=== PATIENT | male | born 1950 | race Hispanic/Latino ===

== ENCOUNTER 2017-09-01 16:07 | Emergency (ER) | payer MEDICARE, OTHER ==
--- OUTSIDE RECORDS SUMMARY | 2017-09-01 16:10 | XMS REPORT | Clinical Summary ---
:1950 Author Organization [facility] Address [address] [place] [address] Care Team Providers Name Role Phone Asked, No Pcp Primary Care Provider Unavailable Allergies No Known Allergies Current Medications Prescription Sig. Disp. Refills Start Date End Date Status gabapentin Take 600 mg by Active (NEURONTIN) 300 mg mouth nightly. capsule MELOXICAM ORAL Take by mouth Active daily. dronabinol Take 1 capsule 60 capsule 0 10/03/2016 10/07/2016 Discontinued (MARINOL) 5 MG (5 mg total) capsule by mouth 2 (two) times a day before meals for 30 days. dronabinol Take 2 60 capsule 3 10/07/2016 11/06/2016 (MARINOL) 5 MG capsules (10 capsule mg total) by mouth 2 (two) times a day before meals for 30 days. dronabinol Take 1 capsule 60 capsule 2 03/09/2017 04/08/2017 (MARINOL) 5 MG (5 mg total) capsule by mouth 2 (two) times a day before meals for 30 days. Active Problems Problem Noted Date Myalgia 10/03/2016 Post-traumatic osteoarthritis of both shoulders 10/03/2016 TBI (traumatic brain injury) 10/03/2016 Encounters Date Type Specialty Care Team Description 03/09/2017 Refill Physical Medicine and Mica Gerber MA 10/07/2016 Telephone Physical Medicine and Mica Gerber MA 10/07/2016 Refill Physical Medicine and Mica Gerber MA 10/03/2016 Office Visit Physical Medicine and Yu Paredes Myalgia ( Primary Dx); Rehabilitation MD Post-traumatic osteoarthritis of both shoulders; TBI (traumatic brain injury), with loss of consciousness of unspecified duration, sequela after 08/31/2016 Social History Tobacco Use Types Packs/Day Years Used Date Never Smoker Sex Assigned at Date Recorded Not on file Last Filed Vital Signs Vital Sign Reading Time Taken Blood Pressure 153/107 10/03/2016 9:39 AM CDT Pulse 74 10/03/2016 9:39 AM CDT Temperature - - Respiratory Rate - - Oxygen Saturation - - Inhaled Oxygen Concentration - - Weight - - Height - - Body Mass Index - - Plan of Treatment Health Maintenance Due Date Last Done Comments COLONOSCOPY 1998 SHINGRIX VACCINE (#1) 1998 ZOSTER VACCINE 2008 PNEUMOCOCCAL POLYSACCHARIDE VACCINE AGE 65 AND OVER 2013 PNEUMOCOCCAL-13 2013 INFLUENZA VACCINE 11/18/2017 Results Not on fileafter 08/31/2016 Insurance Payer Benefit Plan / Group Subscriber ID Type Phone Address MEDICARE MEDICARE PART A AND B xxxxxxxxxx Medicare [place], [place] [phone] [address]
--- NOTE | 2017-09-01 17:17 | ER ---
Nurse's Notes [facility] Name: Thiago Selby Age: 67 yrs Sex: Male : 1950 Arrival Date: 09/01/2017 Time: 16:12 Bed 28 Private MD: Unknown, Unknown Diagnosis: Skin ulceration Presentation: 09/01 16:25 Presenting complaint: Patient states: " I have a spot on my knee that I think may be a ph spider bite. I just had that knee replaced about 2 months ago and I want to make sure everything is okay." Pt denies N/V/D or fever, small wound noted to R knee w/ no drainage. Transition of care: patient was not received from another setting of care. Onset of symptoms was September 01, 2017. Initial Sepsis Screen: Does the patient meet any 2 criteria? No. Patient's initial sepsis screen is negative. Does the patient have a suspected source of infection? No. Patient's initial sepsis screen is negative. 16:25 Method Of Arrival: Ambulatory 16:25 Acuity: NOE 4 16:47 Care prior to arrival: None. ed1 Triage Assessment: 16:47 Bite description: bite sustained to right knee by an unknown animal, animal ed1 information: vaccination(s) is not applicable. Historical: - Allergies: 16:33 No Known Allergies; ph - Home Meds: 16:33 gabapentin oral oral [Active]; ph - PMHx: 16:33 nerve pain; ph - PSHx: 16:33 knee replacement; ph - Immunization history:: Adult Immunizations unknown. - Social history:: Smoking status: . - Family history:: not pertinent. - Hospitalizations: : No recent hospitalization is reported. Screenin:47 Abuse screen: Denies threats or abuse. Denies injuries from another. Nutritional ed1 screening: No deficits noted. Tuberculosis screening: No symptoms or risk factors identified. Fall Risk None identified. Assessment: 16:47 General: Appears in no apparent distress. Behavior is calm, cooperative. Pain: ed1 Complains of pain in right knee Pain radiates to right leg Pain currently is 8 out of 10 on a pain scale. Quality of pain is described as throbbing, Pain began 1 day ago. Is continuous. Neuro: Level of Consciousness is awake, alert, obeys commands, Oriented to person, place, time, situation. Cardiovascular: Denies chest pain, Heart tones S1 S2 present. Respiratory: Airway is patent Trachea midline Respiratory effort is even, unlabored, Respiratory pattern is regular, symmetrical, Breath sounds are clear bilaterally. GI: No signs and/or symptoms were reported involving the gastrointestinal system. : No signs and/or symptoms were reported regarding the genitourinary system. EENT: No signs and/or symptoms were reported regarding the EENT system. Derm: Skin is intact, Skin is normal, Skin temperature is warm right knee swollen and hot to touch. Musculoskeletal: Circulation, motion, and sensation intact. Range of motion: limited in right knee. 16:47 Reassessment: I agree with assessment completed by KARLA Mtz . aa5 17:23 Reassessment: Patient appears in no apparent distress at this time. No changes from ed1 previously documented assessment. Patient and/or family updated on plan of care and expected duration. Pain level reassessed. Patient is alert, oriented x 3, equal unlabored respirations, skin warm/dry/pink. Vital Signs: 16:28 BP 133 / 71; Pulse 79; Resp 18; Temp 97.9; Pulse Ox 96% on R/A; ph 17:23 BP 138 / 76; Pulse 83; Resp 16; Pulse Ox 100% on R/A; Pain 6/10; ed1 ED Course: 16:12 Patient arrived in ED. mr 16:12 Unknown, Unknown is Private Physician. mr 16:28 Triage completed. ph 16:34 Arm band placed on. ph 16:43 Bibi Rich LVN is Primary Nurse. ed1 16:47 Patient has correct armband on for positive identification. Bed in low position. Call ed1 light in reach. 17:01 Ventura Lara MD is Attending Physician. rn 17:23 No provider procedures requiring assistance completed. Patient did not have IV access ed1 during this emergency room visit. Administered Medications: No medications were administered Outcome: 17:16 Discharge ordered by . rn 17:23 Discharged to home ambulatory. ed1 17:23 Condition: good 17:23 Discharge instructions given to patient, Instructed on discharge instructions, follow up and referral plans. medication usage, Demonstrated understanding of instructions, follow-up care, medications, Prescriptions given X 1. 17:25 Patient left the ED. ed1 Signatures: Lian Laughlin mr Ventura Lara MD MD rn Calderon, Audri, RN RN aa5 Bibi Rich, COMPOSITOR APPRENTICE COMPOSITOR APPRENTICE ed1 Mariajose Thomason, RN RN ph
--- NOTE | 2017-09-01 17:17 | EDPHYS ---
Physician Documentation [facility] Name: Thiago Selby Age: 67 yrs Sex: Male : 1950 Arrival Date: 09/01/2017 Time: 16:12 Bed 28 Private MD: Unknown, Unknown ED Physician Ventura Lara HPI: 09/01 17:13 This 67 yrs old Male presents to ER via Ambulatory with complaints of Insect rn Bite. 17:13 The patient presents with a bite, by an insect. Onset: The symptoms/episode rn began/occurred at an unknown time. Severity of symptoms: At their worst the symptoms were mild, in the emergency department the symptoms are unchanged. The patient has experienced a previous episode. Reports thinks spider bit him on leg, no swelling, + mild erythema, no fever, is cautious because of his knee replacement and previous complications.. Historical: - Allergies: 16:33 No Known Allergies; ph - Home Meds: 16:33 gabapentin oral oral [Active]; ph - PMHx: 16:33 nerve pain; ph - PSHx: 16:33 knee replacement; ph - Immunization history:: Adult Immunizations unknown. - Social history:: Smoking status: . - Family history:: not pertinent. - Hospitalizations: : No recent hospitalization is reported. ROS: 17:13 Constitutional: Negative for fever, chills, and weight loss, MS/Extremity: Negative for rn injury and deformity, Skin: + ulceration to right knee Exam: 17:13 Constitutional: This is a well developed, well nourished patient who is awake, alert, rn and in no acute distress. MS/ Extremity: Pulses equal, no cyanosis. Neurovascular intact. Stiff right knee (baseline), + small subcentimeter ulceration, circular, anterior and lateral to right patella, no fluctuance, + mild erythema. Vital Signs: 16:28 BP 133 / 71; Pulse 79; Resp 18; Temp 97.9; Pulse Ox 96% on R/A; ph 17:23 BP 138 / 76; Pulse 83; Resp 16; Pulse Ox 100% on R/A; Pain 6/10; ed1 MDM: 17:01 Patient medically screened. rn 17:13 Differential diagnosis: ulceration, cellulitis, insect bite. Data reviewed: vital rn signs, nurses notes, and as a result, I will discharge patient. Counseling: I had a detailed discussion with the patient and/or guardian regarding: the historical points, exam findings, and any diagnostic results supporting the discharge/admit diagnosis, the need for outpatient follow up, to return to the emergency department if symptoms worsen or persist or if there are any questions or concerns that arise at home. Special discussion: I discussed with the patient/guardian in detail that at this point there is no indication for admission to the hospital. It is understood, however, that if the symptoms persist or worsen the patient needs to return immediately for re-evaluation. Administered Medications: No medications were administered Disposition: 09/01/17 17:16 Discharged to Home. Impression: Skin ulceration. - Condition is Stable. - Discharge Instructions: Skin Ulcer, Spider Bite. - Prescriptions for Clindamycin HCl 300 mg Oral Capsule - take 1 capsule by ORAL route every 6 hours for 10 days; 40 capsule. - Medication Reconciliation Form, Thank You Letter, Antibiotic Education, Prescription Opioid Use form. - Follow up: Private Physician; When: As needed; Reason: Recheck today's complaints, Re-evaluation by your physician. - Problem is chronic. - Symptoms are unchanged. Signatures: Ventura Lara MD MD rn Bibi Rich, PRODUCTION MATERIAL COORDINATOR PRODUCTION MATERIAL COORDINATOR ed1 Mariajose Thomason RN RN ph Corrections: (The following items were deleted from the chart) 17:25 17:16 09/01/2017 17:16 Discharged to Home. Impression: Skin ulceration. Condition is ed1 Stable. Forms are Medication Reconciliation Form, Thank You Letter, Antibiotic Education, Prescription Opioid Use. Follow up: Private Physician; When: As needed; Reason: Recheck today's complaints, Re-evaluation by your physician. Problem is chronic. Symptoms are unchanged. rn
== END 2017-09-01 17:25 | disposition home or self-care (01) ==
LOC: ER 16:07
DX: L97.919 Non-pressure chronic ulcer of unspecified part of right lower leg with unspecified severity (principal)
CPT/HCPCS: 99282

== ENCOUNTER 2018-07-04 07:26 | Emergency (ER) | payer OTHER ==
--- OUTSIDE RECORDS SUMMARY | 2018-07-04 07:28 | XMS REPORT | Clinical Summary ---
:1950 Author Organization [facility] Address [address] [place] [id number] Care Team Providers Name Role Phone Asked, No Pcp Primary Care Provider Unavailable Allergies No Known Allergies Medications Medication Sig Dispensed Refills Start Date End Date Status gabapentin (NEURONTIN) Take 600 mg by 0 Active 300 mg capsule mouth nightly. MELOXICAM ORAL Take by mouth 0 Active daily. Active Problems Problem Noted Date Myalgia 10/03/2016 Post-traumatic osteoarthritis of both shoulders 10/03/2016 TBI (traumatic brain injury) 10/03/2016 Social History Tobacco Use Types Packs/Day Years Used Date Never Smoker Sex Assigned at Date Recorded Not on file Job Start Date Occupation Industry Not on file Not on file Not on file Travel History Travel Start Travel End No recent travel history available. Last Filed Vital Signs Not on file Plan of Treatment Health Maintenance Due Date Last Done Comments COLON CANCER SCREENING 1998 SHINGLES VACCINES (#1) 1998 65+ PNEUMOCOCCAL VACCINE (1 of 2 - PCV13) 2013 PNEUMOCOCCAL POLYSACCHARIDE VACCINE AGE 65 AND OVER 2013 INFLUENZA VACCINE 11/18/2017 Results Not on fileafter 07/03/2017 Insurance Payer Benefit Plan / Group Subscriber ID Type Phone Address MEDICARE MEDICARE PART A AND B xxxxxxxxxx Medicare [place], [place] Advance Directives Patient has advance care planning documents on file. For more information, please contact:[place] [id number] [place] [address]
[2018-07-04] MEDS ORDERED: MEPERIDINE HCL 25 MG/0.5 ML ONE (08:02)
[2018-07-04 08:11] LABS: Absolute Lymphocytes (CBC) 1.4 K/uL (0.7-4.9); Basophils % 0.6 % (0-1.3); Eosinophils % 2.4 % (0-4.4); Hematocrit 44.8 % (39.6-49.0); Lymphocytes % 16.4 % (15.3-44.8); MPV 8.7 fL (7.6-11.3); Monocytes % 11.4 % (3.3-12.3); RBC Red Blood Cell Count 5.08 M/uL (4.33-5.43)
[2018-07-04 08:29] LABS: Albumin 3.8 g/dL (3.4-5.0); Bilirubin Direct 0.2 mg/dL (0-0.2); Bilirubin Total 0.8 mg/dL (0.2-1.0); Potassium 4.1 mmol/L (3.5-5.1); Protein, Total 7.2 g/dL (6.4-8.2)
--- NOTE | 2018-07-04 08:33 | RAD REPORT ---
EXAM DESCRIPTION: CT - Stone Protocol - 07/04/2018 8:06 am CLINICAL HISTORY: Abdominal pain. Right flank pain COMPARISON: None. TECHNIQUE: Computed axial tomography of the abdomen pelvis was obtained without oral or IV contrast. Lack of IV and oral contrast limits evaluation of solid organs, bowel, and vessels. Coronal reformat irma images were obtained and reviewed. All CT scans are performed using dose optimization technique as appropriate and may include automated exposure control or mA/KV adjustment according to patient size. FINDINGS: A renal calculus is not seen. An ureteral calculus is not noted. A bladder calculus is not present. Parapelvic renal cysts are present bilaterally. A 2.3 centimeter isodense structure is pres ent within the mid right kidney Fatty liver. Cholecystectomy Spleen, pancreas and adrenals appear grossly normal Diverticula stem from the colon. Moderate stranding is present adjacent to the sigmoid colon is sligh tly to the left of midline within the pelvis. This indicates diverticulitis. No abscess. No free air The appendix appears normal. Small inguinal hernias contain fat IMPRESSION: Negative for a genitourinary calculus Moderate diverticulitis 2.3 centimeter isodense structure within the right kidney likely representing a hypertrophied column James. A mass is considered less likely. This should be confirmed with nonemergent renal ultrasound.
[2018-07-04] MEDS ORDERED: metroNIDAZOLE 500 MG TABLET ONE (09:10)
[2018-07-04] MEDS ORDERED: CIPROFLOXACIN HCL 500 MG TAB ONE (09:10)
--- NOTE | 2018-07-04 09:18 | ER ---
Nurse's Notes [facility] Name: Thiago Selby Age: 68 yrs Sex: Male : 1950 Arrival Date: 07/04/2018 Time: 07:29 Bed 8 Private MD: Diagnosis: Diverticulitis of large intestine without perforation or abscess without bleeding;Radiculopathy, lumbar region Presentation: 07/04 07:49 Presenting complaint: Patient states: right flank pain that travels to the lower abdominal quadrants. Transition of care: patient was not received from another setting of care. Onset of symptoms was July 03, 2018. Risk Assessment: Do you want to hurt yourself or someone else? Patient reports no desire to harm self or others. Initial Sepsis Screen: Does the patient meet any 2 criteria? No. Patient's initial sepsis screen is negative. Does the patient have a suspected source of infection? No. Patient's initial sepsis screen is negative. Care prior to arrival: None. 07:49 Method Of Arrival: Ambulatory 07:49 Acuity: NOE 3 hj Triage Assessment: 07:56 General: Appears distressed, uncomfortable, obese, Behavior is calm, cooperative. Pain: hj Complains of pain in Right flank pain Pain radiates to abdomen Pain currently is 10 out of 10 on a pain scale. Quality of pain is described as burning. GI: Patient currently denies nausea, vomiting. Historical: - Allergies: 07:56 No Known Allergies; hj - Home Meds: 07:56 gabapentin Oral [Active]; atorvastatin oral oral [Active]; Metformin Oral [Active]; hj Lisinopril Oral [Active]; Tramadol Oral [Active]; - PMHx: 07:56 Hypertension; Diabetes - NIDDM; hj - PSHx: 07:56 Knee surgery; hj - Immunization history:: Adult Immunizations unknown. - Social history:: Smoking status: Patient/guardian denies using tobacco, Patient uses alcohol, but reports only rare drinking. - Ebola Screening: : Patient negative for fever greater than or equal to 101.5 degrees Fahrenheit, and additional compatible Ebola Virus Disease symptoms Patient denies exposure to infectious person Patient denies travel to an Ebola-affected area in the 21 days before illness onset No symptoms or risks identified at this time. - Family history:: not pertinent. - Hospitalizations: : No recent hospitalization is reported. Screenin:55 Abuse screen: Denies threats or abuse. Denies injuries from another. Nutritional hj screening: No deficits noted. Tuberculosis screening: No symptoms or risk factors identified. Fall Risk None identified. 08:02 Abuse screen: Denies threats or abuse. Denies injuries from another. Nutritional hj screening: No deficits noted. Tuberculosis screening: No symptoms or risk factors identified. Fall Risk None identified. Assessment: 07:49 GI: Bowel sounds hj 07:49 General: Appears in no apparent distress. uncomfortable, Behavior is calm, cooperative, hj appropriate for age. Pain: Complains of pain in abdomen Pain radiates to anterior aspect of right lateral abdomen and posterior aspect of right lateral abdomen Pain currently is 8 out of 10 on a pain scale. Neuro: Level of Consciousness is awake, alert, obeys commands, Oriented to person, place, time, situation, Appropriate for age. Cardiovascular: Capillary refill < 3 seconds Patient's skin is warm and dry. Respiratory: Airway is patent Respiratory effort is even, unlabored, Respiratory pattern is regular, symmetrical. GI: Reports lower abdominal pain. : No signs and/or symptoms were reported regarding the genitourinary system. EENT: No signs and/or symptoms were reported regarding the EENT system. Derm: No signs and/or symptoms reported regarding the dermatologic system. Musculoskeletal: No signs and/or symptoms reported regarding the musculoskeletal system. 08:01 Reassessment: See triage notes. Vital Signs: 07:56 BP 134 / 70; Pulse 69; Resp 17; Temp 98.2; Pulse Ox 96% on R/A; Weight 127.01 kg; hj Height 5 ft. 10 in. (177.80 cm); Pain 10/10; 07:56 Body Mass Index 40.18 (127.01 kg, 177.80 cm) ED Course: 07:29 Patient arrived in ED. as 07:36 Ventura Lara MD is Attending Physician. rn 07:41 Sony Vázquez RN is Primary Nurse. hj 07:49 Arm band placed on right wrist. hj 07:49 Patient has correct armband on for positive identification. Placed in gown. Bed in low hj position. Call light in reach. Side rails up X 1. 07:55 Initial lab(s) drawn, by me, sent to lab. Inserted saline lock: 20 gauge in right hj antecubital area, using aseptic technique. Blood collected. 07:[address] vr 08:02 Triage completed. hj 08:02 Patient has correct armband on for positive identification. Bed in low position. Call hj light in reach. Side rails up X2. Warm blanket given. 08:05 CT completed. Patient tolerated procedure well. Patient moved back from CT. vr 08:06 CT Stone Protocol In Process Unspecified. EDMS 08:36 Urine Microscopic Only Sent. hj 09:35 No provider procedures requiring assistance completed. IV discontinued, intact, hj bleeding controlled, No redness/swelling at site. Pressure dressing applied. Administered Medications: 07:55 Drug: Demerol 25 mg Route: IVP; Site: right antecubital; hj 08:36 Follow up: Response: No adverse reaction; Pain is decreased hj 08:57 Drug: Cipro 500 mg Route: PO; hj 09:15 Follow up: Response: No adverse reaction hj 08:57 Drug: Flagyl 500 mg Route: PO; hj 09:15 Follow up: Response: No adverse reaction hj Outcome: 09:17 Discharge ordered by . rn 09:35 Attestation : i agree with the assessment of SN Ty. hj 09:35 Discharged to home ambulatory. 09:35 Condition: stable 09:35 Discharge instructions given to patient, Instructed on discharge instructions, follow up and referral plans. medication usage, Demonstrated understanding of instructions, follow-up care, medications, Prescriptions given X 3. 09:36 Patient left the ED. Signatures: Dispatcher [employer] Diane Peterson Roman, MD MD rn Davis, Victoria vr Joaquin, Henry, RN RN hj
--- NOTE | 2018-07-04 09:18 | EDPHYS ---
Physician Documentation [facility] Name: Thiago Selby Age: 68 yrs Sex: Male : 1950 Arrival Date: 07/04/2018 Time: 07:29 Bed 8 Private MD: ED Physician Ventura Lara HPI: 07/04 08:14 This 68 yrs old Male presents to ER via Ambulatory with complaints of rn Abdominal Pain, Flank Pain. 08:14 The patient complains of pain in the right low back. The pain radiates to the abdomen. rn Onset: The symptoms/episode began/occurred 4 day(s) ago. Modifying factors: The symptoms are alleviated by nothing. the symptoms are aggravated by movement. Severity of pain: At its worst the pain was moderate in the emergency department the pain is unchanged. The patient has experienced a previous episode. The patient has been recently seen by a physician:. Recently seen by Dr. Joya, reports unable to get his side of story across, has right lower back pain, radiates around to low abdomen and groin, increased urinary frequency and urgency, no fever, no trauma, reports multiple lower ext and back injuries, has had this once before, no kidney stone found. . Historical: - Allergies: 07:56 No Known Allergies; hj - Home Meds: 07:56 gabapentin Oral [Active]; atorvastatin oral oral [Active]; Metformin Oral [Active]; hj Lisinopril Oral [Active]; Tramadol Oral [Active]; - PMHx: 07:56 Hypertension; Diabetes - NIDDM; hj - PSHx: 07:56 Knee surgery; hj - Immunization history:: Adult Immunizations unknown. - Social history:: Smoking status: Patient/guardian denies using tobacco, Patient uses alcohol, but reports only rare drinking. - Ebola Screening: : Patient negative for fever greater than or equal to 101.5 degrees Fahrenheit, and additional compatible Ebola Virus Disease symptoms Patient denies exposure to infectious person Patient denies travel to an Ebola-affected area in the 21 days before illness onset No symptoms or risks identified at this time. - Family history:: not pertinent. - Hospitalizations: : No recent hospitalization is reported. ROS: 08:14 Constitutional: Negative for fever, chills, and weight loss, Cardiovascular: Negative rn for chest pain, palpitations, and edema, Respiratory: Negative for shortness of breath, cough, wheezing, and pleuritic chest pain, Abdomen/GI: + abd pain, negative for nausea/vomiting/diarrhea Back: + right lower back pain : + urgency and frequency MS/Extremity: Negative for injury and deformity, Neuro: Negative for headache, weakness, numbness, tingling, and seizure. Exam: 08:14 Constitutional: This is a well developed, well nourished patient who is awake, alert, telephonic rn to room without difficulty ENT: MMM Respiratory: No increased work of breathing, no retractions or nasal flaring. Abdomen/GI: soft, mild tenderness suprapubic region Back: No spinal tenderness. No costovertebral tenderness. Full range of motion. Skin: Warm, dry with normal turgor. Normal color with no rashes, no lesions, and no evidence of cellulitis. MS/ Extremity: Pulses equal, no cyanosis. Neurovascular intact. Full, normal range of motion. Equal circumference. Neuro: Awake and alert, GCS 15, oriented to person, place, time, and situation. Cranial nerves II-XII grossly intact. Motor strength 5/5 in all extremities. Sensory grossly intact. Cerebellar exam normal. Normal gait. Vital Signs: 07:56 BP 134 / 70; Pulse 69; Resp 17; Temp 98.2; Pulse Ox 96% on R/A; Weight 127.01 kg; hj Height 5 ft. 10 in. (177.80 cm); Pain 10/10; 07:56 Body Mass Index 40.18 (127.01 kg, 177.80 cm) MDM: 07:36 Patient medically screened. rn 09:16 Differential diagnosis: nephrolithiasis, UTI, diverticulitis. Data reviewed: vital rn signs, nurses notes, lab test result(s), radiologic studies, CT scan, and as a result, I will discharge patient. Counseling: I had a detailed discussion with the patient and/or guardian regarding: the historical points, exam findings, and any diagnostic results supporting the discharge/admit diagnosis, lab results, radiology results, the need for outpatient follow up, to return to the emergency department if symptoms worsen or persist or if there are any questions or concerns that arise at home. Special discussion: I discussed with the patient/guardian in detail that at this point there is no indication for admission to the hospital. It is understood, however, that if the symptoms persist or worsen the patient needs to return immediately for re-evaluation. 07/04 07:46 Order name: CBC with Diff; Complete Time: 08:36 rn 07/04 07:46 Order name: Basic Metabolic Panel; Complete Time: 08:36 rn 07/04 07:46 Order name: LFT's; Complete Time: 08:36 rn 07/04 07:46 Order name: Lipase; Complete Time: 08:36 rn 07/04 07:46 Order name: Urine Microscopic Only rn 07/04 08:41 Order name: Urine Dipstick--Ancillary (enter results) eb 07/04 07:46 Order name: IV Start; Complete Time: 08:01 rn 07/04 07:46 Order name: CT Stone Protocol; Complete Time: 08:36 rn 07/04 07:46 Order name: Urine Dipstick-Ancillary (obtain specimen); Complete Time: 08:36 rn Administered Medications: 07:55 Drug: Demerol 25 mg Route: IVP; Site: right antecubital; hj 08:36 Follow up: Response: No adverse reaction; Pain is decreased hj 08:57 Drug: Cipro 500 mg Route: PO; hj 09:15 Follow up: Response: No adverse reaction hj 08:57 Drug: Flagyl 500 mg Route: PO; hj 09:15 Follow up: Response: No adverse reaction Disposition: 07/04/18 09:17 Discharged to Home. Impression: Diverticulitis of large intestine without perforation or abscess without bleeding, Radiculopathy, lumbar region. - Condition is Stable. - Discharge Instructions: Diverticulitis, Lumbosacral Radiculopathy. - Prescriptions for Cipro 500 mg Oral Tablet - take 1 tablet by ORAL route every 12 hours for 10 days; 20 tablet. Flagyl 500 mg Oral Tablet - take 1 tablet by ORAL route every 8 hours for 10 days; 30 tablet. Tylenol- Codeine #3 300-30 mg Oral Tablet - take 1 tablet by ORAL route every 6 hours As needed; 15 tablet. - Medication Reconciliation Form, Thank You Letter, Antibiotic Education, Prescription Opioid Use form. - Follow up: Private Physician; When: As needed; Reason: Recheck today's complaints, Re-evaluation by your physician. - Problem is new. - Symptoms have improved. Signatures: Dispatcher [employer] EDMS LaraVentura villalba MD MD rn Joaquin, Henry, RN RN Corrections: (The following items were deleted from the chart) : 09:17 07/04/2018 09:17 Discharged to Home. Impression: Diverticulitis of large rn intestine without perforation or abscess without bleeding. Condition is Stable. Forms are Medication Reconciliation Form, Thank You Letter, Antibiotic Education, Prescription Opioid Use. Follow up: Private Physician; When: As needed; Reason: Recheck today's complaints, Re-evaluation by your physician. Problem is new. Symptoms have improved. rn 09:36 09:17 07/04/2018 09:17 Discharged to Home. Impression: Diverticulitis of large hj intestine without perforation or abscess without bleeding; Radiculopathy, lumbar region. Condition is Stable. Forms are Medication Reconciliation Form, Thank You Letter, Antibiotic Education, Prescription Opioid Use. Follow up: Private Physician; When: As needed; Reason: Recheck today's complaints, Re-evaluation by your physician. Problem is new. Symptoms have improved. rn
[2018-07-04 09:36] LABS: Urine Bacteria <20 /HPF (NONE SEEN); Urine Culture Reflex Order NOT NEEDED; Urine RBC <5 /HPF (NONE SEEN)
[2018-07-04 09:37] LABS: Urine Mucus SLIGHT /HPF (NONE SEEN)
[2018-07-04 16:20] LABS: Urine Blood NEGATIVE (NEG); Urine Glucose NEGATIVE (NEG); Urine Protein TRACE (NEG); Urine Specific Gravity 1.025 (1.005-1.030); Urine pH 5.5 (5.0-7.0)
== END 2018-07-04 09:36 | disposition home or self-care (01) ==
LOC: ER 07:26
DX: K57.32 Diverticulitis of large intestine without perforation or abscess without bleeding (principal); M54.16 Radiculopathy, lumbar region; I10 Essential (primary) hypertension; E11.9 Type 2 diabetes mellitus without complications
CPT/HCPCS: 36415; 74176; 76377; 80048; 80076; 81003; 81015; 83690; 85025; 96374; 99284; J2175

== ENCOUNTER 2019-11-02 11:45 | Inpatient (IN) | payer MEDICARE, OTHER ==
--- OUTSIDE RECORDS SUMMARY | 2019-11-02 12:28 | XMS REPORT | Clinical Summary ---
:1950 Author Organization [facility] Address [address] [place] [id number] Care Team Providers Name Role Phone Asked, No Pcp Primary Care Provider Unavailable Allergies No Known Allergies Medications Medication Sig Dispensed Refills Start Date End Date Status gabapentin (NEURONTIN) Take 600 mg by 0 Active 300 mg capsule mouth nightly. MELOXICAM ORAL Take by mouth 0 A ctive daily. Active Problems Problem Noted Date Myalgia 10/03/2016 Post-traumatic osteoarthritis of both shoulders 2016 TBI (traumatic brain injury) 10/03/2016 Social History [...] Maintenance Due Date Last Done Comments COLONOSCOPY SCREENING 1998 SHINGLES VACCINES (#1) 1998 65+ PNEUMOCOCCAL VACCINE (1 of 2 - PCV13) 2013 INFLUENZA VACCINE 11/19/2019 Results Not on fileafter 11/01/2018 Insurance Payer Benefit Plan / Subscriber ID Effective Dates Phone Addre ss Type Group MEDICARE MEDICARE PART A xxxxxxxxxx 2013-Present [place], [place] Medicare [place] B (Home) [place] [address] Advance Directives For more information, please contact: [phone] Type Date Recorded 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
--- OUTSIDE RECORDS SUMMARY | 2019-11-02 12:29 | XMS REPORT | Clinical Summary ---
:1950 Author Organization [facility] Address [address] [place] [address] Care Team Providers Name Role Phone Unavailable Primary Care Provider Unavailable Allergies Not on File Medications Not on file Active Problems Not on file Social History Tobacco Use Types Packs/Day Years Used Date Never Assessed Sex Assigned at Date Recorded Not on file Job Start Date Occupation Industry Not on file Not on file Not on file Travel History Travel Start Travel End No recent travel history available. Last Filed Vital Signs Not on file Plan of Treatment Not on file Results Not on fileafter 11/01/2018
--- NOTE | 2019-11-02 12:37 | RAD REPORT ---
EXAM DESCRIPTION: Chris Single View11/02/2019 12:26 pm CLINICAL HISTORY: Cough COMPARISON: 2019 FINDINGS: Moderate to marked right and moderate left alveolar opacities. Heart is mildly enlarged IMPRESSION: Bilateral pulmonary opacities right greater than left may represent pneumonia
[2019-11-02 12:55] LABS: Absolute Lymphocytes (CBC) 0.8 K/uL (0.7-4.9); Basophils % 0.4 % (0-1.3); Hematocrit 40.6 % (39.6-49.0); Lymphocytes % 11.3 % (15.3-44.8); MPV 8.5 fL (7.6-11.3); RBC Red Blood Cell Count 4.71 M/uL (4.33-5.43)
[2019-11-02 12:59] LABS: Protime INR 1.21
[2019-11-02] MEDS ORDERED: Levofloxacin 750mg IV 750 MG/150 ML BAG IV ONE (13:01)
[2019-11-02] MEDS ORDERED: dexAMETHasone 10 MG/ML VIAL ONE (13:01)
[2019-11-02] MEDS ORDERED: HYDROCODONE/CHLORPHEN 5 ML/OSYR ONE (13:07)
[2019-11-02 13:16] LABS: Albumin 2.9 g/dL (3.4-5.0); Bilirubin Direct 0.3 mg/dL (0-0.2); Bilirubin Total 0.8 mg/dL (0.2-1.0); Potassium 3.6 mmol/L (3.5-5.1); Protein, Total 7.4 g/dL (6.4-8.2); Troponin (Emerg Dept Use Only) 0.06 ng/mL (0.0-0.045)
--- NOTE | 2019-11-02 13:30 | ER ---
Nurse's Notes [facility] Name: Thiago Selby Age: 69 yrs Sex: Male : 1950 Arrival Date: 11/02/2019 Time: 11:49 Bed 15 Private MD: Diagnosis: Pneumonia, unspecified organism;Hypoxemia;Coronavirus infection, unspecified;Sepsis, unspecified organism Presentation: 11/01 12:07 Chief complaint: Patient states: Tested positive for Covid-19 Thursday. Reports ca1 abdominal pain, weakness, fatigued and coughing. Pt drowsy in triage. Coronavirus screen: Surgical mask placed on patient. Patient moved to private room, placed in contact and droplet isolation with eye protection until further assessment. Patient reports a cough. Patient reports shortness of breath or difficulty breathing. Patient reports a measured and/or subjective temperature greater than 100.4F. Patient denies travel on a cruise ship or to a country the [facility] currently lists as an affected area. Patient denies contact with known and/or suspected case of COVID-19. Ebola Screen: Patient negative for fever greater than or equal to 101.5 degrees Fahrenheit, and additional compatible Ebola Virus Disease symptoms Patient denies exposure to infectious person. Patient denies travel to an Ebola-affected area in the 21 days before illness onset. No symptoms or risks identified at this time. Initial Sepsis Screen: Does the patient meet any 2 criteria? No. Patient's initial sepsis screen is negative. Does the patient have a suspected source of infection? No. Patient's initial sepsis screen is negative. Risk Assessment: Do you want to hurt yourself or someone else? Patient reports no desire to harm self or others. Onset of symptoms was November 02, 2019. 12:07 Method Of Arrival: Wheelchair ca1 12:07 Acuity: NOE 2 ca1 Historical: - Allergies: 12:11 Flonase; ca1 - Home Meds: 12:11 atorvastatin 20 mg oral tab 1 tab once daily [Active]; lisinopril 5 mg oral tab 1 tab ca1 once daily [Active]; metformin 500 mg oral tab 1 tab [Active]; hydroxyzine HCl 25 mg Oral tab [Active]; gabapentin 300 mg oral cap [Active]; tramadol 50 mg oral tab [Active]; Aspirin Oral [Active]; - PMHx: 12:11 Diabetes - NIDDM; Hypertension; ca1 - PSHx: 12:11 Knee surgery; ca1 - Immunization history:: Adult Immunizations up to date. - Social history:: Smoking status: Patient denies any tobacco usage or history of. - Family history:: not pertinent. - Hospitalizations: : No recent hospitalization is reported. Screenin:45 Abuse screen: Denies threats or abuse. Denies injuries from another. Nutritional ph screening: No deficits noted. Tuberculosis screening: No symptoms or risk factors identified. Fall Risk None identified. Assessment: 12:43 General: Appears in no apparent distress. uncomfortable, ill, well groomed, Behavior is ph calm, cooperative, appropriate for age, drowsy, Reports chills for >3 days. Pain: Complains of pain in chest and abdomen. Neuro: Level of Consciousness is awake, alert, obeys commands, Oriented to person, place, time, situation, Reports dizziness, weakness "all over". Cardiovascular: Capillary refill < 3 seconds in bilateral fingers Patient's skin is warm and dry. Respiratory: Reports shortness of breath cough that is persistent pain with cough Airway is patent Respiratory effort is even, unlabored, Respiratory pattern is tachypnea. GI: Abdomen is round Bowel sounds present X 4 quads. Reports lower abdominal pain, upper abdominal pain, nausea, Patient currently denies diarrhea, vomiting. Derm: Skin is intact, Skin is pink, warm \\T\\ dry. Musculoskeletal: Circulation, motion, and sensation intact. Range of motion: intact in all extremities. 13:38 Reassessment: Patient appears in no apparent distress at this time. While at bedside pt ph noted to be 88-90% on 6L NC, placed on NRB mask and improved to 97%, other VSS. 14:14 Reassessment: Hospitalist at bedside. ph 15:00 Reassessment: Patient appears in no apparent distress at this time. No changes from ph previously documented assessment. Patient and/or family updated on plan of care and expected duration. Pain level reassessed. 16:11 Reassessment: Attempted to call report to 4th floor, charge nurse stated that they did ph not know they were getting a pt, told that receiving nurse will call back. 17:15 Reassessment: Patient appears in no apparent distress at this time. Patient and/or ph family updated on plan of care and expected duration. Pain level reassessed. Report called to 4th floor, preparing pt to be taken to room. Vital Signs: 12:07 BP 141 / 69; Pulse 85; Resp 22 S; Temp 99(TE); Pulse Ox 81% on R/A; Weight 124.74 kg ca1 (R); Height 5 ft. 10 in. (177.80 cm) (R); 12:30 BP 139 / 63; Pulse 85; Resp 26; Pulse Ox 89% on 4 lpm NC; ph 13:00 BP 146 / 63; Pulse 86; Resp 24; Pulse Ox 91% on 6 lpm NC; ph 13:30 BP 150 / 74; Pulse 83; Resp 24; Pulse Ox 97% on 100% Non-rebreather mask; ph 14:00 BP 131 / 73; Pulse 80; Resp 22; Pulse Ox 99% on 100% Non-rebreather mask; ph 14:30 BP 139 / 76; Pulse 77; Resp 22; Pulse Ox 99% on 100% Non-rebreather mask; ph 15:00 BP 143 / 89; Pulse 77; Resp 24; Temp 98.9; Pulse Ox 98% on 100% Non-rebreather mask; ph 15:30 BP 137 / 65; Pulse 72; Resp 24; Pulse Ox 98% on 100% Non-rebreather mask; ph 16:20 BP 112 / 77; Pulse 73; Resp 26; Temp 98.8(TE); Pulse Ox 98% on 100% Non-rebreather mask;ph 12:07 Body Mass Index 39.46 (124.74 kg, 177.80 cm) ca1 ED Course: 11:49 Patient arrived in ED. bp1 12:01 Ventura Lara MD is Attending Physician. rn 12:08 Triage completed. ca1 12:11 Arm band placed on right wrist. ca1 12:12 Mariajose Thomason, RN is Primary Nurse. ph 12:26 CXR XRAY In Process Unspecified. EDMS 12:44 Initial lab(s) drawn, by ED staff, sent to lab. EKG done. Inserted saline lock: 20 ph gauge in right forearm, using aseptic technique. Blood collected. 12:45 Patient has correct armband on for positive identification. Bed in low position. Call ph light in reach. Side rails up X2. classroom monitor on. Pulse ox on. NIBP on. Door closed. Noise minimized. Warm blanket given. 13:29 Prezas, Haroon, DO is Hospitalizing Provider. rn 14:14 No provider procedures requiring assistance completed. Patient admitted, IV remains in ph place. Administered Medications: 13:15 Drug: Decadron - Dexamethasone 10 mg Route: IVP; Site: right forearm; ph 13:30 Follow up: Response: No adverse reaction ph 13:19 Drug: LevaQUIN 750 mg Volume: 150 ml; Route: IVPB; Infused Over: 90 mins; Site: right ph forearm; 14:50 Follow up: Response: No adverse reaction; IV Status: Completed infusion ph 13:19 Drug: Tussionex Pennkinetic ER 5 ml Route: PO; ph 17:19 Follow up: Response: No adverse reaction ph 13:37 Drug: NS 0.9% 500 ml Route: IV; Rate: bolus; Site: right forearm; ph 17:19 Follow up: Response: No adverse reaction; IV Status: Completed infusion; IV Intake: ph 500ml Intake: 17:19 IV: 500ml; Total: 500ml. ph Outcome: 13:30 Decision to Hospitalize by Provider. rn 16:21 Admitted to Med/surg accompanied by tech, via stretcher, room 419, with oxygen, with ph chart. 16:21 Condition: stable 16:21 Instructed on the need for admit. 17:20 Patient left the ED. ph Signatures: Dispatcher [employer] EDMS Ventura Lara MD MD rn Hall, Patricia, RN RN ph Acob, Cheryl, RN RN ca1 Pania[place], Brittany bp1
--- NOTE | 2019-11-02 13:30 | EDPHYS ---
Physician Documentation [facility] Name: Thiago Selby Age: 69 yrs Sex: Male : 1950 Arrival Date: 11/02/2019 Time: 11:49 Bed 15 Private MD: ED Physician Ventura Lara HPI: 11/01 12:12 This 69 yrs old Male presents to ER via Wheelchair with complaints of COVID+, rn cough, diarrhea. 12:12 The patient or guardian reports cough. Onset: The symptoms/episode began/occurred 1 rn week(s) ago. Severity of symptoms: At their worst the symptoms were mild, in the emergency department the symptoms are unchanged. Modifying factors: The symptoms are alleviated by nothing. The patient has not experienced similar symptoms in the past. Reports cough, some sob, abd cramping, diarrhea, for about a week, + COVID-19, reports feeling worse, has had cefdinir and zithromax, not helping. . Historical: - Allergies: 12:11 Flonase; ca1 - Home Meds: 12:11 atorvastatin 20 mg oral tab 1 tab once daily [Active]; lisinopril 5 mg oral tab 1 tab ca1 once daily [Active]; metformin 500 mg oral tab 1 tab [Active]; hydroxyzine HCl 25 mg Oral tab [Active]; gabapentin 300 mg oral cap [Active]; tramadol 50 mg oral tab [Active]; Aspirin Oral [Active]; - PMHx: 12:11 Diabetes - NIDDM; Hypertension; ca1 - PSHx: 12:11 Knee surgery; ca1 - Immunization history:: Adult Immunizations up to date. - Social history:: Smoking status: Patient denies any tobacco usage or history of. - Family history:: not pertinent. - Hospitalizations: : No recent hospitalization is reported. ROS: 12:12 Constitutional: Negative for fever, chills, and weight loss, Eyes: Negative for injury, rn pain, redness, and discharge, Neck: Negative for injury, pain, and swelling, Cardiovascular: Negative for chest pain, palpitations, and edema, Respiratory: Negative for shortness of breath, cough, wheezing, and pleuritic chest pain, Abdomen/GI: + abd cramping and diarrhea Back: Negative for injury and pain, MS/Extremity: Negative for injury and deformity, Skin: Negative for injury, rash, and discoloration, Neuro: Negative for headache, numbness, tingling, and seizure. Exam: 12:12 Constitutional: This is a well developed, well nourished patient who is awake, alert, rn seems mild respiratory distress Head/Face: Normocephalic, atraumatic. ENT: NO stridor Cardiovascular: Regular rate and rhythm, no JVD. No pulse deficits. Respiratory: + diminished breath sounds at bases, + tachypnea, no retractions Abdomen/GI: soft, non-tender, no masses MS/ Extremity: Pulses equal, no cyanosis. Neurovascular intact. Full, normal range of motion. Equal circumference. Neuro: Awake and alert, GCS 15 Vital Signs: 12:07 BP 141 / 69; Pulse 85; Resp 22 S; Temp 99(TE); Pulse Ox 81% on R/A; Weight 124.74 kg ca1 (R); Height 5 ft. 10 in. (177.80 cm) (R); 12:30 BP 139 / 63; Pulse 85; Resp 26; Pulse Ox 89% on 4 lpm NC; ph 13:00 BP 146 / 63; Pulse 86; Resp 24; Pulse Ox 91% on 6 lpm NC; ph 13:30 BP 150 / 74; Pulse 83; Resp 24; Pulse Ox 97% on 100% Non-rebreather mask; ph 14:00 BP 131 / 73; Pulse 80; Resp 22; Pulse Ox 99% on 100% Non-rebreather mask; ph 14:30 BP 139 / 76; Pulse 77; Resp 22; Pulse Ox 99% on 100% Non-rebreather mask; ph 15:00 BP 143 / 89; Pulse 77; Resp 24; Temp 98.9; Pulse Ox 98% on 100% Non-rebreather mask; ph 15:30 BP 137 / 65; Pulse 72; Resp 24; Pulse Ox 98% on 100% Non-rebreather mask; ph 16:20 BP 112 / 77; Pulse 73; Resp 26; Temp 98.8(TE); Pulse Ox 98% on 100% Non-rebreather mask;ph 12:07 Body Mass Index 39.46 (124.74 kg, 177.80 cm) ca1 MDM: 12:01 Patient medically screened. rn 13:19 Differential Diagnosis: Bronchitis Upper Respiratory Infection Viral Syndrome rn Pneumonia. Data reviewed: vital signs, nurses notes, lab test result(s), radiologic studies, plain films, and as a result, I will admit patient. Counseling: I had a detailed discussion with the patient and/or guardian regarding: the historical points, exam findings, and any diagnostic results supporting the discharge/admit diagnosis, lab results, radiology results, the need for further work-up and treatment in the hospital. Response to treatment: the patient's symptoms have mildly improved after treatment, and as a result, I will admit patient. Admission orders: after a detailed discussion of the patient's condition and case, the admit orders are written by me. 13:29 ED course: Pt with COVID pneumonia, sepsis, hypoxemia, will admit to Dr. Rodriguez for rn further care. . 11/01 12:10 Order name: Blood Culture Adult (2) rn 11/01 12:10 Order name: BMP rn 11/01 12:10 Order name: C-Reactive Protein; Complete Time: 13: 11/01 12:10 Order name: CBC with Diff; Complete Time: 13: rn 11/01 12:10 Order name: D-Dimer; Complete Time: 13: rn 11/01 12:10 Order name: Ferritin; Complete Time: 13: rn 11/01 12:10 Order name: Lactate; Complete Time: : rn 11/01 12:10 Order name: LFT's; Complete Time: : rn 11/01 12:10 Order name: Lipase; Complete Time: 13: rn 11/01 12:10 Order name: Procalcitonin rn 11/01 12:10 Order name: PT-INR; Complete Time: 13: rn 11/01 12:10 Order name: Ptt, Activated; Complete Time: 13: rn 11/01 12:10 Order name: Troponin (emerg Dept Use Only); Complete Time: 13:22 rn 11/01 12:10 Order name: Blood Culture EDAR 11/01 12:10 Order name: CXR XRAY; Complete Time: 12:41 rn 11/01 12:10 Order name: EKG; Complete Time: 12:11 rn 11/01 12:10 Order name: Cardiac monitoring; Complete Time: 12:34 rn 11/01 12:10 Order name: Droplet/Contact Precautions; Complete Time: 12:12 rn 11/01 12:10 Order name: EKG - Nurse/Tech; Complete Time: 12:34 rn 11/01 12:10 Order name: IV Start; Complete Time: 12:34 rn 11/01 12:10 Order name: Labs collected and sent; Complete Time: 12:15 rn 11/01 12:10 Order name: Basic Metabolic Panel; Complete Time: 13:22 EDAR 11/01 12:45 Order name: Type And Screen rn 11/01 15:28 Order name: CONS Physician Consult EDAR 11/01 16:22 Order name: ABO/RH no charge EDAR 11/01 16:41 Order name: Lactate Sepsis 2 HR Follow-up EDAR 11/01 12:10 Order name: O2 Per Protocol; Complete Time: 12:15 rn 11/01 12:10 Order name: O2 Sat Monitoring; Complete Time: 12:15 rn 11/01 13:24 Order name: Labs - recollect needed: recollected T\T\S / no year put on tube; Complete eb Time: 13:37 Administered Medications: 13:15 Drug: Decadron - Dexamethasone 10 mg Route: IVP; Site: right forearm; ph 13:30 Follow up: Response: No adverse reaction ph 13:19 Drug: LevaQUIN 750 mg Volume: 150 ml; Route: IVPB; Infused Over: 90 mins; Site: right ph forearm; 14:50 Follow up: Response: No adverse reaction; IV Status: Completed infusion ph 13:19 Drug: Tussionex Pennkinetic ER 5 ml Route: PO; ph 17:19 Follow up: Response: No adverse reaction ph 13:37 Drug: NS 0.9% 500 ml Route: IV; Rate: bolus; Site: right forearm; ph 17:19 Follow up: Response: No adverse reaction; IV Status: Completed infusion; IV Intake: ph 500ml Disposition: 11/02/19 13:30 Hospitalization ordered by Haroon Rodriguez for Inpatient Admission. Preliminary diagnosis are Pneumonia, unspecified organism, Hypoxemia, Coronavirus infection, unspecified, Sepsis, unspecified organism. - Bed requested for Telemetry/MedSurg (Inpatient). - Status is Inpatient Admission. ph - Condition is Fair. - Problem is new. - Symptoms are unchanged. Critical care time excluding procedures: 13:29 Critical care time: Bedside Care: 25 minutes, Consultation: 5 minutes. Total time: 30 rn minutes Signatures: Dispatcher [employer] EDMS Parul Graves RN RN Ventura Kim MD MD rn Hall, Patricia, RN RN ph Botello, Elizabeth eb Acob, Cheryl RN RN ca1 Corrections: (The following items were deleted from the chart) 15:46 13:30 Hospitalization Ordered by Haroon Rodriguez DO for Inpatient Admission. Preliminary diagnosis is Pneumonia, unspecified organism; Hypoxemia; Coronavirus infection, unspecified; Sepsis, unspecified organism. Bed requested for Telemetry/MedSurg (Inpatient). Status is Inpatient Admission. Condition is Fair. Problem is new. Symptoms are unchanged. rn 17:20 15:46 11/02/2019 13:30 Hospitalization Ordered by Haroon Rodriguez DO for Inpatient ph Admission. Preliminary diagnosis is Pneumonia, unspecified organism; Hypoxemia; Coronavirus infection, unspecified; Sepsis, unspecified organism. Bed requested for Telemetry/MedSurg (Inpatient). Status is Inpatient Admission. Condition is Fair. Problem is new. Symptoms are unchanged. elda
[2019-11-02] MEDS ORDERED: NA CHLORIDE 0.9% 500 ML ONE (13:31)
[2019-11-02] MEDS ORDERED: ONDANSETRON 4 MG/2 ML VIAL IV PRN (15:28)
[2019-11-02] MEDS ORDERED: ACETAMINOPHEN 500 MG TAB PO PRN (15:28)
--- NOTE | 2019-11-02 15:47 | P.HP ---
Certification for Inpatient With expected LOS: >2 Midnights Patient will require the following post-hospital care: None Practitioner: I am a practitioner with admitting privileges, knowledge of patient current condition, hospital course, and medical plan of care. Services: Services provided to patient in accordance with Admission requirements found in Title 42 Section 412.3 of the Code of Federal Regulations <Lucio Frazier - Last Filed: 11/02/19 16:02> Patient History Date of Service: 11/02/19 Primary Care Provider: [facility] Reason for admission: Nausea/vomiting/shortness of breath/ + Covid PNA History of Present Illness: 69-year-old male with past medical history of type 2 diabetes mellitus, hyperten marli, hyperlipidemia, diabetic neuropathy who was diagnosed positive for COVID 19 presents to the emergency room complaining of increasing shortness of breath, cough and labored breathing. Patient states that he was told on ThursdayOctober 28 of that his COVID screen was positive. Patient has had increasing difficulty in breathing. Feels short of breath and is having more labored breathing. States he gets winded with minimal effort. In the emergency room patient was found to have room air saturations of 81% and labored breathing. He was started on oxygen support at 2 L nasal cannula which only brought his oxygen saturations up to 88%. O2 was increased to 6 L which did not improve much his oxygen saturations. Patient is currently on a non rebreathing mask at 15 L with oxygen saturations of 95%. Lab work shows an elevated D-dimer of 17 26, lactic acid of 2.6, ferritin of 1514 and a slightly elevated troponin 0 0.06. Patient had also been started on oral antibiotics with Cefdinir and azithromycin which have not helped. Chest x-ray shows bilateral pulmonary opacities with the right greater than the left. On examination patient is calm. Alert and oriented x3. States that he was very concerned because he did not feel like he was breathing well. He is doing much better now on a non rebreathing mask but is still having labored breathing and gets very short of breath with a drop in oxygen saturations while speaking. He is agreeable to convalescent plasma. Patient is also complaining of nausea vomiting and coughing. States his nausea and vomiting have improved some with medicine. Due to is difficulty maintaining adequate oxygen saturations and requiring significant O2 support patient will be admitted and further evaluated. Home medications list reviewed: No - Past Medical/Surgical History Diabetic: Yes -: Type 2 diabetes mellitus -: Essential hypertension -: Hyperlipidemia -: Diabetic neuropathy -: Positive Covid -19 -: Right total knee -: Left hip replacement x3 -: Cholecystectomy Psychosocial/ Personal History: , lives at home - Family History Mother -: Diabetes - Social History Smoking Status: Never smoker Alcohol use: No CD- Drugs: No Caffeine use: No Place of Residence: Home <Lucio Frazier - Last Filed: 11/02/19 16:02> Date of Service: 11/02/19 <Haroon Rodriguez - Last Filed: 11/02/19 16:38> Allergies No Known Allergie Allergy (Uncoded 09/01/17 17:30) Unknown Review of Systems General: Unremarkable Eyes: Unremarkable ENT: Unremarkable Respiratory: Cough, Shortness of Breath, SOB with Excertion Cardiovascular: Unremarkable Gastrointestinal: Unremarkable Genitourinary: Unremarkable Musculoskeletal: Unremarkable Integumentary: Unremarkable Neurological: Unremarkable <Lucio Frazier - Last Filed: 11/02/19 16:02> Physical Examination - Vital Signs Temperature: 99 F Blood Pressure: 141/69 Pulse: 85 Respirations: 22 Pulse Ox (%): 81 (RA) - Physical Exam General: Alert, In no apparent distress, Oriented x3 HEENT: Atraumatic, Normocephalic, PERRLA Neck: Other (Trachea midline) Respiratory: Clear to auscultation bilaterally, Diminished Cardiovascular: No edema, Normal pulses, Regular rate/rhythm, Normal S1 S2 Capillary refill: <2 Seconds Gastrointestinal: Normal bowel sounds, Soft and benign, Non-distended Musculoskeletal: No clubbing, No swelling, No contractures Integumentary: No rashes, No breakdown, No significant lesion Neurological: Normal gait, Normal speech, Normal strength at 5/5 x4 extr, Normal tone - Studies Laboratory Data (last 24 hrs) 11/02/19 12:20: PT 14.2 H, INR 1.21, APTT 29.9 11/02/19 12:20: WBC 7.1, Hgb 14.0, Hct 40.6, Plt Count 293 11/02/19 12:20: Sodium 134 L, Potassium 3.6, BUN 14, Creatinine 1.05, Glucose 184 H, Total Bilirubin 0.8, AST 124 H, ALT 96 H, Alkaline Phosphatase 62, Lipase 194 <Lucio Frazier - Last Filed: 11/02/19 16:02> - Studies Laboratory Data (last 24 hrs) 11/02/19 12:20: PT 14.2 H, INR 1.21, APTT 29.9 11/02/19 12:20: WBC 7.1, Hgb 14.0, Hct 40.6, Plt Count 293 11/02/19 12:20: Sodium 134 L, Potassium 3.6, BUN 14, Creatinine 1.05, Glucose 184 H, Total Bilirubin 0.8, AST 124 H, ALT 96 H, Alkaline Phosphatase 62, Lipase 194 <Haroon Rodriguez - Last Filed: 11/02/19 16:38> Assessment and Plan - Plan Impression: Shortness of breath and labored breathing secondary to positive Covid pneumonia complicated by cough, nausea and vomiting: Metabolic acidosis with an elevated lactic acid of 2.6 on admission: Elevated cardiac enzymes: Type 2 diabetes mellitus: Diabetic neuropathy: Hypertension: Plan: Shortness of breath and labored breathing secondary to positive Covid pneumonia complicated by cough, nausea and vomiting: Patient is positive for Covid 19 pneumonia. He is requiring increased O2 support and is having difficulty with maintaining adequate oxygen levels on room air. Patient is currently on a non- rebreather mask at 15 L nasal cannula maintaining oxygen saturations of approximately 95%. He is still having labored breathing. Will start patient on dexamethasone 6 mg daily, gently diuresed, will start zinc, folic acid and thiamine as well. Will consult pulmonology. Will continue O2 support and adjust accordingly. Will start patient on Levaquin 500 mg daily empirically. Will continue anti emetics and monitor volume status. Will hold off on starting IV hydration due to his difficulty breathing. Metabolic acidosis with an elevated lactic acid of 2.6 on admission: Will recheck in 3 hr. Will monitor lactic acid levels. Elevation and lactic acid is likely reactive to Covid pneumonia. Elevated cardiac enzymes: Patient denies chest pain at this time. Will continue to trend troponins. Will place patient on continuous telemetry. Type 2 diabetes mellitus: Will start sliding scale insulin. Will resume all medications once available. Will continue ADA diet. Diabetic neuropathy: Patient has been taking gabapentin for many years. Will resume home medications once available. Hypertension: Will resume home medications. Will monitor blood pressure. Discharge Plan: Home Plan to discharge in: 72 Hours - Advance Directives Does patient have a Living Will: No Does patient have a Durable POA for Healthcare: No - Code Status/Comfort Care Code Status Assessed: Yes Time Spent Managing Pts Care (In Minutes): 55 <Lucio Frazier - Last Filed: 11/02/19 16:02> - Plan Case discussed with PA. Agree with evaluation, assessment and plan of care. Pa tient with positive bilateral COVID pneumonia. Continue with IV steroids, supplements and oxygen. Will start antibiotic as well. Patient desires convalescent plasma. Will obtain type and screen an order. Will monitor lab closely. <Haroon Rodriguez - Last Filed: 11/02/19 16:38>
[2019-11-02] MEDS ORDERED: Levofloxacin500mg IV 500 MG/100 ML BAG IV SCH (16:00)
[2019-11-02] MEDS: INSULIN -REGULAR HUMAN 50 UNIT/0.5 ML ML SQ SCH ×2 (16:30→21:00)
[2019-11-02 18:46] VITALS: BMI 39.4
[2019-11-02] MEDS: SPIRONOLACTONE 25 MG TABLET PO SCH (21:03)
[2019-11-02] MEDS: ZINC SULFATE 220 MG CAP PO SCH (21:04)
[2019-11-02] MEDS: FOLIC ACID 1 MG in NA CHLORIDE 0.9% 50 ML IV SCH (21:04)
[2019-11-02] MEDS: FUROSEMIDE 20 MG/ 2ML VIAL IV SCH (21:14)
[2019-11-02] MEDS: ENOXAPARIN 40 MG/0.4 ML SQ SCH (21:14)
[2019-11-02] MEDS: GUAIFENESIN/CODEINE 5ML UCUP PO PRN (21:44)
[2019-11-03] MEDS: THIAMINE 200 MG/2 ML INJ IM SCH ×2 (01:14→07:28)
[2019-11-03 04:47] LABS: Absolute Lymphocytes (CBC) 0.6 K/uL (0.7-4.9); Basophils % 0.4 % (0-1.3); Lymphocytes % 9.9 % (15.3-44.8); RBC Red Blood Cell Count 4.52 M/uL (4.33-5.43)
[2019-11-03 05:16] LABS: BUN Blood Urea Nitrogen 14 mg/dL (7-18); Bicarbonate 25 mmol/L (21-32); Glucose Level 220 mg/dL (74-106); HDL Cholesterol 19 mg/dL (40-60); LDL Cholesterol, Calculated 91 (<130); Magnesium 2.5 mg/dL (1.8-2.4); NT PRO-BNP 61 pg/mL (<125); Potassium 4.3 mmol/L (3.5-5.1); Sodium Level 137 mmol/L (136-145); Thyroid Stimulating Hormone 0.232 uIU/mL (0.360-3.740); Troponin I 0.04 ng/mL (0.0-0.045)
--- NOTE | 2019-11-03 07:25 | EKG ---
Test Date: 2019-11-02 Test Time: 12:44:18 Magnetic Healer: PH MEASUREMENT RESULTS: Intervals: Rate: 84 VA: 168 QRSD: 92 QT: 384 QTc: 453 Dent: P: 35 VA: 168 QRS: 42 T: 26 INTERPRETIVE STATEMENTS: Sinus rhythm with occasional premature ventricular complexes Otherwise normal ECG No previous ECG available for comparison Electronically Signed On 11-03-19 07:23:07 CDT by Gilberto Prasad
[2019-11-03] MEDS: ENOXAPARIN 40 MG/0.4 ML SQ SCH (07:27)
[2019-11-03] MEDS: dexAMETHasone 10 MG/ML VIAL IV SCH (07:28)
[2019-11-03] MEDS: FUROSEMIDE 20 MG/ 2ML VIAL IV SCH (07:28)
[2019-11-03] MEDS: ZINC SULFATE 220 MG CAP PO SCH (07:29)
[2019-11-03] MEDS: SPIRONOLACTONE 25 MG TABLET PO SCH (07:29)
[2019-11-03] MEDS: INSULIN -REGULAR HUMAN 50 UNIT/0.5 ML ML SQ SCH ×4 (07:45→21:53)
[2019-11-03] MEDS ORDERED: PNEUMOCOCCAL VACCINE 0.5 ML IMVAC ONE (09:00)
[2019-11-03] MEDS: FOLIC ACID 1 MG in NA CHLORIDE 0.9% 50 ML IV SCH (09:18)
[2019-11-03] MEDS: levoFLOXacin 500 MG TAB PO SCH (09:18)
[2019-11-03 09:36] LABS: Urine Appearance CLEAR; Urine Bilirubin NEGATIVE (NEG); Urine Blood TRACE (NEG); Urine Color YELLOW; Urine Glucose 1+ (NEG); Urine Protein TRACE (NEG); Urine Specific Gravity 1.015 (1.005-1.030); Urine Urobilinogen 0.2 mg/dL (0.2-1.0)
[2019-11-03 09:37] LABS: Urine Microscopic Reflex ORDER UMIC
[2019-11-03 09:54] LABS: Urine Bacteria NONE SEEN /HPF (NONE SEEN); Urine Coarse Granular Casts 0-5 /LPF (NONE SEEN); Urine Culture Reflex Order NOT NEEDED; Urine Mucus MOD /HPF (NONE SEEN); Urine RBC <5 /HPF (NONE SEEN)
[2019-11-03] MEDS ORDERED: Levofloxacin500mg IV 500 MG/100 ML BAG IV SCH (13:00)
[2019-11-03] MEDS: GUAIFENESIN/CODEINE 5ML UCUP PO PRN (13:26)
--- NOTE | 2019-11-03 16:37 | P.PN ---
Subjective Date of Service: 11/03/19 Primary Care Provider: [facility] Chief Complaint: Nausea/vomiting/shortness of breath/ + Covid PNA Subjective: Improving (Slight improvement but still short of breath. On high- flow oxygen.) Physical Examination - Vital Signs Temperature: 97.2 F Blood Pressure: 144/70 Pulse: 69 Respirations: 17 Pulse Ox (%): 93 - Physical Exam General: Alert, In no apparent distress, Oriented x3, Cooperative HEENT: Atraumatic Neck: Supple Respiratory: Clear to auscultation bilaterally, Other (Patient on high-flow oxygen) Cardiovascular: Normal pulses Neurological: Normal speech, Normal strength at 5/5 x4 extr, Normal tone, Normal affect - Studies Medications List Reviewed: Yes Assessment & Plan Discharge Plan: Home Plan to discharge in: 24 Hours Physician Review Additional Text: Impression: Shortness of breast secondary to bilateral positive COVID pneumonia Mild Metabolic acidosis with an elevated lactic acid Elevated cardiac enzymes Type 2 diabetes mellitus Diabetic neuropathy Hypertension Plan: Shortness of breast secondary to bilateral positive COVID pneumonia: Continue with IV Decadron. Patient on high-flow oxygen. Continue to wean off. Address the possibility of convalescent plasma. Patient agreeable. Will order convalescent plasma at this time. Continue supplements. Will start Levaquin p.o.. Wean off oxygen. Possible improvement over the next 24-48 hr. Patient will likely require home oxygen at discharge. I will turn over the service to the hospitalist team tomorrow. I will go plan of care with him. Mild Metabolic acidosis with an elevated lactic acid: This has resolved. Will monitor closely. Elevated cardiac enzymes likely related to above: Slight elevation noted but back to normal. Likely related to COVID infection Type 2 diabetes mellitus: Resume home medication. Will provide sliding scale and Accu-Cheks. Diabetic neuropathy: Continue medication. Hypertension: Continue home medication. Time Spent Managing Pts Care (In Minutes): 55
[2019-11-03] MEDS: METFORMIN HCL 500 MG TAB PO SCH (16:55)
[2019-11-03] MEDS ORDERED: FOLIC ACID 1 MG TABLET PO SCH (18:00)
[2019-11-03] MEDS ORDERED: THIAMINE HCL 100 MG TABLET PO SCH (18:00)
[2019-11-03] MEDS: ATORVASTATIN 20 MG TAB PO SCH (21:53)
[2019-11-03] MEDS: lisinopriL 5 MG TAB PO SCH (21:53)
[2019-11-03] MEDS: GABAPENTIN 300 MG CAP PO SCH (21:53)
[2019-11-03] MEDS ORDERED: NA CHLORIDE 0.9% 250 ML ONE (23:25)
[2019-11-04] MEDS: GUAIFENESIN/CODEINE 5ML UCUP PO PRN ×2 (02:23→14:13)
[2019-11-04 06:28] LABS: Absolute Lymphocytes (CBC) 0.7 K/uL (0.7-4.9); Basophils % 0.2 % (0-1.3); Hematocrit 37.8 % (39.6-49.0); Lymphocytes % 6.3 % (15.3-44.8); MPV 8.4 fL (7.6-11.3); RBC Red Blood Cell Count 4.34 M/uL (4.33-5.43)
[2019-11-04 06:47] LABS: Potassium 3.8 mmol/L (3.5-5.1)
[2019-11-04] MEDS: INSULIN -REGULAR HUMAN 50 UNIT/0.5 ML ML SQ SCH ×4 (07:30→20:16)
[2019-11-04] MEDS: FOLIC ACID 1 MG TABLET PO SCH (08:31)
[2019-11-04] MEDS: levoFLOXacin 500 MG TAB PO SCH (08:31)
[2019-11-04] MEDS: THIAMINE HCL 100 MG TABLET PO SCH (08:31)
[2019-11-04] MEDS: ZINC SULFATE 220 MG CAP PO SCH (08:31)
[2019-11-04] MEDS: ENOXAPARIN 40 MG/0.4 ML SQ SCH (08:32)
[2019-11-04] MEDS: SPIRONOLACTONE 25 MG TABLET PO SCH (08:32)
[2019-11-04] MEDS: FUROSEMIDE 20 MG/ 2ML VIAL IV SCH (08:32)
[2019-11-04] MEDS: dexAMETHasone 10 MG/ML VIAL IV SCH (08:32)
[2019-11-04] MEDS: METFORMIN HCL 500 MG TAB PO SCH ×2 (08:32→17:45)
--- NOTE | 2019-11-04 08:43 | P.CNS ---
Date of Consult: 11/04/19 [facility] Chief Complaint: Pneumonia you do grande virus History of Present Illness: Patient is 69 years of age multiple medical problems including diabetes tested positive for Crohn or virus admitted with worsening respiratory symptoms shortness of breath cough admitted with respiratory failure and pneumonia currently she is on high-flow oxygen requiring high concentrations Allergies No Known Allergies Allergy (Verified 11/03/19 01:51) Home Medications: Atorvastatin Calcium [Lipitor] 20 mg PO BEDTIME 11/03/19 Benzonatate 100 mg PO TID PRN 11/03/19 Etodolac [Lodine] 400 mg PO PRN PRN 11/03/19 Gabapentin 2 cap PO BEDTIME 11/03/19 Guaifenesin/Codeine Phosphate [Guaiatussin AC Liquid] 5 ml PO Q6H PRN 11/03/19 Lisinopril [Zestril] 5 mg PO BEDTIME 11/03/19 hydrOXYzine HCL [Atarax] 25 mg PO PRN PRN 11/03/19 - Past Medical/Surgical History Diabetic: Yes -: Type 2 diabetes mellitus -: Essential hypertension -: Hyperlipidemia -: Diabetic neuropathy -: Positive Covid -19 -: Right total knee -: Left hip replacement x3 -: Cholecystectomy Psychosocial/ Personal History: , lives at home - Family History Mother Medical History: Diabetes - Social History Alcohol use: No CD- Drugs: No Caffeine use: No Place of Residence: Home Review of Systems General: Weakness Respiratory: Shortness of Breath Physical Examination Temp Pulse Resp BP Pulse Ox 98.7 F 62 12 137/81 93 11/04/19 00:00 11/04/19 00:00 11/04/19 00:00 11/04/19 00:00 11/04/19 00:00 - Problems (1) Pneumonia due to human coronavirus Current Visit: Yes Status: Acute Plan: Patient is 69 years of age admitted with pneumonia respiratory failure she is requiring high-flow oxygen continue with diuretics wean down are O2 meds and la bs all reviewed fully anti coagulated with Eliquis high risk for t thromboembolism
[2019-11-04] MEDS: APIXABAN 5 MG TABLET PO SCH ×2 (09:41→20:15)
[2019-11-04] MEDS ORDERED: NA CHLORIDE 0.9% 1,000 ML ONE (09:46)
--- NOTE | 2019-11-04 11:08 | P.PN ---
Subjective Date of Service: 11/04/19 Primary Care Provider: [facility] Chief Complaint: Pneumonia you do grande virus Subjective: No new changes Review of Systems 10-point ROS is otherwise unremarkable Physical Examination - Vital Signs Temperature: 97.6 F Blood Pressure: 131/71 Pulse: 67 Respirations: 20 Pulse Ox (%): 90 - Physical Exam General: Alert, Mild distress HEENT: Atraumatic, Normocephalic Neck: Supple Respiratory: Diminished, Crackles/rales Cardiovascular: Regular rate/rhythm, Normal S1 S2 Capillary refill: <2 Seconds Gastrointestinal: Soft and benign, W/out hepatosplenomegaly Musculoskeletal: No clubbing, No swelling Integumentary: No rashes Neurological: Other (Alert , Awake ) Lymphatics: No axilla or inguinal lymphadenopathy Urinary: Other (No) - Studies 11/02/19 13:35: ABO/Rh A POSITIVE, Solid Phase Ab Screen Negative Laboratory Tests 11/02/19 11/02/19 11/02/19 12:20 12:20 12:20 WBC 7.1 RBC 4.71 Hgb 14.0 Hct 40.6 MCV 86.2 MCH 29.7 MCHC 34.5 RDW 13.6 Plt Count 293 MPV 8.5 Neutrophils % 81.5 H Lymphocytes % 11.3 L Monocytes % 6.4 Eosinophils % 0.4 Basophils % 0.4 Absolute Neutrophils 5.8 Absolute Lymphocytes 0.8 Absolute Monocytes 0.5 Absolute Eosinophils 0.0 Absolute Basophils 0.0 PT 14.2 H INR 1.21 APTT 29.9 D-Dimer 1726 H* Sodium 134 L Potassium 3.6 Chloride 97 L Carbon Dioxide 26 BUN 14 Creatinine 1.05 Estimated GFR 70 L Glucose 184 H Lactic Acid Calcium 8.6 Ferritin 1514.0 H Total Bilirubin 0.8 Direct Bilirubin 0.3 H AST 124 H ALT 96 H Alkaline Phosphatase 62 Rapid Troponin I 0.06 H C-Reactive Protein 128.00 H Serum Total Protein 7.4 Albumin 2.9 L Globulin 4.5 H Albumin/Globulin Ratio 0.6 L Lipase 194 Procalcitonin ABO/Rh Solid Phase Ab Screen 11/02/19 11/02/19 11/02/19 12:20 12:20 12:35 WBC RBC Hgb Hct MCV MCH MCHC RDW Plt Count MPV Neutrophils % Lymphocytes % Monocytes % Eosinophils % Basophils % Absolute Neutrophils Absolute Lymphocytes Absolute Monocytes Absolute Eosinophils Absolute Basophils PT INR APTT D-Dimer Sodium Potassium Chloride Carbon Dioxide BUN Creatinine Estimated GFR Glucose Lactic Acid 2.6 H Calcium Ferritin Total Bilirubin Direct Bilirubin AST ALT Alkaline Phosphatase Rapid Troponin I C-Reactive Protein Serum Total Protein Albumin Globulin Albumin/Globulin Ratio Lipase Procalcitonin 0.18 ABO/Rh A POSITIVE Solid Phase Ab Screen 11/02/19 13:35 WBC RBC Hgb Hct MCV MCH MCHC RDW Plt Count MPV Neutrophils % Lymphocytes % Monocytes % Eosinophils % Basophils % Absolute Neutrophils Absolute Lymphocytes Absolute Monocytes Absolute Eosinophils Absolute Basophils PT INR APTT D-Dimer Sodium Potassium Chloride Carbon Dioxide BUN Creatinine Estimated GFR Glucose Lactic Acid Calcium Ferritin Total Bilirubin Direct Bilirubin AST ALT Alkaline Phosphatase Rapid Troponin I C-Reactive Protein Serum Total Protein Albumin Globulin Albumin/Globulin Ratio Lipase Procalcitonin ABO/Rh A POSITIVE Solid Phase Ab Screen Negative Medications List Reviewed: Yes Assessment & Plan Physician Review Additional Text: Impression: Acute hypoxic respiratory failure secondary to bilateral positive COVID pneumonia Mild Metabolic acidosis with an elevated lactic acid Elevated cardiac enzymes Type 2 diabetes mellitus Diabetic neuropathy Hypertension Plan: Acute hypoxic respiratory failure secondary to bilateral positive COVID pneumonia: Continue with IV Decadron. Will try to Wean off Oxygen S/p convalescent plasma. Continue supplements. Mild Metabolic acidosis with an elevated lactic acid: resolved. Will monitor closely. Elevated cardiac enzymes likely related to above: Slight elevation noted but back to normal. Likely related to COVID infection Type 2 diabetes mellitus: Resume home medication. Will provide sliding scale and Accu-Cheks. Diabetic neuropathy: Continue medication. Hypertension: Continue home medication. Titrate antihypertensives Time Spent Managing Pts Care (In Minutes): 39
--- NOTE | 2019-11-04 11:26 | RAD REPORT ---
EXAM DESCRIPTION: RAD - Chest Single View - 11/04/2019 10:50 am CLINICAL HISTORY: Pneumonia, COVID positive COMPARISON: AP chest November 01 TECHNIQUE: AP portable chest image was obtained 11/04/2019 10:50 am . FINDINGS: Lung volumes are low compared to prior imaging. Airspace opacification is present in the l ower lung field on the left partially obscuring the left hemidiaphragm. Left costophrenic angle blunt ing is present. There is additional patchy opacification in the mid left lung field. Airspace opacifi cation and consolidation seen in the mid and lower right lung field. Allowing for the lower lung volume on today's study, chest shows no improvement from November 01. Heart and vasculature are normal. No pneumothorax. Small left pleural effusion may be present. No ac acosta bony abnormality seen. No acute aortic findings suspected. IMPRESSION: Bilateral pneumonia findings are present not substantially different from November 01.
[2019-11-04] MEDS: GABAPENTIN 300 MG CAP PO SCH (20:15)
[2019-11-04] MEDS: ATORVASTATIN 20 MG TAB PO SCH (20:15)
[2019-11-04] MEDS: lisinopriL 5 MG TAB PO SCH (20:15)
[2019-11-05] MEDS: GUAIFENESIN/CODEINE 5ML UCUP PO PRN (01:43)
[2019-11-05] MEDS: INSULIN -REGULAR HUMAN 50 UNIT/0.5 ML ML SQ SCH ×4 (07:30→21:00)
--- NOTE | 2019-11-05 07:50 | RAD REPORT ---
EXAM DESCRIPTION: Chris Single View11/05/2019 7:12 am CLINICAL HISTORY: Chest pain COMPARISON: November 01 FINDINGS: Overall no significant change in the moderate right and mild to moderate left pulmonary o pacities consistent with pneumonia.
[2019-11-05] MEDS ORDERED: POTASSIUM CL SA 10 MEQ TAB PO ONE (09:00)
[2019-11-05] MEDS: FUROSEMIDE 20 MG/ 2ML VIAL IV SCH (09:00)
[2019-11-05] MEDS: SPIRONOLACTONE 25 MG TABLET PO SCH (09:00)
[2019-11-05] MEDS: FOLIC ACID 1 MG TABLET PO SCH (09:08)
[2019-11-05] MEDS: METFORMIN HCL 500 MG TAB PO SCH ×2 (09:08→16:21)
[2019-11-05] MEDS: THIAMINE HCL 100 MG TABLET PO SCH (09:08)
[2019-11-05] MEDS: APIXABAN 5 MG TABLET PO SCH ×2 (09:08→20:10)
[2019-11-05] MEDS: ZINC SULFATE 220 MG CAP PO SCH (09:08)
[2019-11-05] MEDS: levoFLOXacin 500 MG TAB PO SCH (09:08)
[2019-11-05] MEDS ORDERED: HYDROCODONE/APAP 10/325 TAB PO PRN (09:18)
[2019-11-05 09:23] LABS: Absolute Lymphocytes (CBC) 0.9 K/uL (0.7-4.9); Basophils % 0.4 % (0-1.3); Hematocrit 39.2 % (39.6-49.0); Lymphocytes % 11.5 % (15.3-44.8); MPV 7.8 fL (7.6-11.3); RBC Red Blood Cell Count 4.54 M/uL (4.33-5.43)
[2019-11-05 09:41] LABS: Albumin 2.7 g/dL (3.4-5.0); Bilirubin Total 0.7 mg/dL (0.2-1.0); Potassium 3.6 mmol/L (3.5-5.1); Protein, Total 6.4 g/dL (6.4-8.2)
[2019-11-05] MEDS: dexAMETHasone 10 MG/ML VIAL IV SCH (10:21)
[2019-11-05 10:35] LABS: Blood Morphology Comment NOT SEEN (NOT SEEN); Platelet Estimate ADEQ
[2019-11-05] MEDS ORDERED: Remdesivir 200 MG in NA CHLORIDE 0.9% 250 ML IV ONE (11:00)
[2019-11-05 11:08] LABS: Arterial Blood Carboxyhemoglob 0.7 % (0-1.5); Blood Gas Oxyhemoglobin 92.8 % (94-97); Blood O2 Saturation 94.3 % (92-98.5)
--- NOTE | 2019-11-05 11:08 | P.PN ---
Subjective Date of Service: 11/05/19 Primary Care Provider: [facility] Chief Complaint: Pneumonia you do grande virus Subjective: Worsening, Other (The patient is still hypoxic Refused to wear BiPAP Still on high-flow) Review of Systems Respiratory: Cough, Shortness of Breath Physical Examination - Vital Signs Temperature: 98.3 F Blood Pressure: 160/79 Pulse: 81 Respirations: 20 Pulse Ox (%): 92 - Physical Exam General: Alert, Oriented x3, Obese HEENT: Atraumatic, Normocephalic Neck: Supple, No Thyromegaly Respiratory: Diminished, Crackles/rales Cardiovascular: Normal pulses, Regular rate/rhythm, Normal S1 S2 Capillary refill: <2 Seconds Gastrointestinal: Soft and benign, W/out hepatosplenomegaly Musculoskeletal: No clubbing, No swelling Integumentary: No rashes, No significant lesion Neurological: Normal speech, Other (Alert , [place] , moves all limbs ) Lymphatics: No axilla or inguinal lymphadenopathy - Studies Medications List Reviewed: Yes Assessment & Plan Physician Review Additional Text: Acute hypoxic respiratory failure secondary to bilateral positive COVID pneumonia Mild Metabolic acidosis with an elevated lactic acid Elevated cardiac enzymes Type 2 diabetes mellitus Diabetic neuropathy Hypertension Plan: Acute hypoxic respiratory failure secondary to bilateral positive COVID pneumonia: Continue with IV Decadron and antibiotics The patient is still hypoxic and in mild respiratory distress will get an ABG chest x-ray noted Patient refuses BiPAP On high-flow vapotherm 30 L S/p convalescent plasma. Continue supplements. Discussed with Pulmonology Chance of respiratory decompensation Will try to move to ICU Will try to get Remdesivir Mild Metabolic acidosis with an elevated lactic acid: resolved. Will monitor closely. Elevated cardiac enzymes likely related to above: Slight elevation noted but back to normal. Likely related to COVID infection Type 2 diabetes mellitus: Resume home medication. Will provide sliding scale and Accu-Cheks. Diabetic neuropathy: Continue medication. Hypertension: Continue home medication. Titrate antihypertensives Elevated LFTs LFTs serially Monitor Time Spent Managing Pts Care (In Minutes): 40
[2019-11-05] MEDS ORDERED: NA CHLORIDE 0.9% 500 ML ONE (11:27)
[2019-11-05] MEDS ORDERED: ALPRAZOLAM 0.25 MG TABLET PO PRN (19:06)
[2019-11-05] MEDS: lisinopriL 5 MG TAB PO SCH (20:10)
[2019-11-05] MEDS: ATORVASTATIN 20 MG TAB PO SCH (20:11)
[2019-11-05] MEDS: GABAPENTIN 300 MG CAP PO SCH (20:11)
[2019-11-06 05:48] LABS: Potassium 3.9 mmol/L (3.5-5.1)
[2019-11-06] MEDS: APIXABAN 5 MG TABLET PO SCH ×2 (08:29→20:42)
[2019-11-06] MEDS: FOLIC ACID 1 MG TABLET PO SCH (08:29)
[2019-11-06] MEDS: levoFLOXacin 500 MG TAB PO SCH (08:29)
[2019-11-06] MEDS: THIAMINE HCL 100 MG TABLET PO SCH (08:29)
[2019-11-06] MEDS: ZINC SULFATE 220 MG CAP PO SCH (08:29)
[2019-11-06] MEDS: METFORMIN HCL 500 MG TAB PO SCH ×2 (08:30→16:21)
[2019-11-06] MEDS: dexAMETHasone 4 MG/ML VIAL IV SCH (08:30)
[2019-11-06 08:31] LABS: Albumin 2.9 g/dL (3.4-5.0); Bilirubin Direct 0.3 mg/dL (0-0.2); Bilirubin Total 0.8 mg/dL (0.2-1.0); Protein, Total 7.4 g/dL (6.4-8.2)
[2019-11-06] MEDS: SPIRONOLACTONE 25 MG TABLET PO SCH ×2 (09:00→20:42)
[2019-11-06] MEDS: FUROSEMIDE 20 MG/ 2ML VIAL IV SCH ×2 (09:00→16:21)
[2019-11-06] MEDS ORDERED: POTASSIUM CL SA 10 MEQ TAB PO ONE (09:00)
[2019-11-06] MEDS: INSULIN -REGULAR HUMAN 50 UNIT/0.5 ML ML SQ SCH ×5 (09:04→21:00)
[2019-11-06] MEDS: Remdesivir 100 MG in NA CHLORIDE 0.9% 250 ML IV SCH (09:34)
[2019-11-06 09:58] LABS: Absolute Lymphocytes (CBC) 0.4 K/uL (0.7-4.9); Basophils % 0.1 % (0-1.3); Hematocrit 41.6 % (39.6-49.0); Lymphocytes % 3.7 % (15.3-44.8); MPV 7.7 fL (7.6-11.3); RBC Red Blood Cell Count 4.84 M/uL (4.33-5.43)
--- NOTE | 2019-11-06 12:04 | P.PN ---
Subjective Date of Service: 11/06/19 Primary Care Provider: [facility] Chief Complaint: Pneumonia grande virus Subjective: No new changes, Improving Review of Systems 10-point ROS is otherwise unremarkable Physical Examination - Vital Signs Temperature: 99.3 F Blood Pressure: 153/82 Pulse: 102 Respirations: 24 Pulse Ox (%): 94 - Physical Exam General: Alert, In no apparent distress, Oriented x3, Obese HEENT: Atraumatic, Normocephalic Neck: Supple Respiratory: Diminished, Crackles/rales Cardiovascular: Regular rate/rhythm, Normal S1 S2 Capillary refill: <2 Seconds Gastrointestinal: Soft and benign, W/out hepatosplenomegaly Musculoskeletal: No clubbing, No swelling Integumentary: No rashes Neurological: Normal speech, Normal strength at 5/5 x4 extr Lymphatics: No axilla or inguinal lymphadenopathy - Studies Medications List Reviewed: Yes Assessment & Plan Physician Review Additional Text: Acute hypoxic respiratory failure secondary to bilateral positive COVID pneumonia Mild Metabolic acidosis with an elevated lactic acid Elevated cardiac enzymes Type 2 diabetes mellitus Diabetic neuropathy Hypertension Plan: Acute hypoxic respiratory failure secondary to bilateral positive COVID pneumonia: Continue with IV Decadron and antibiotics The patient is still hypoxic and in mild respiratory distress Was on Bipap Changed to high-flow vapotherm 40 L this morning S/p convalescent plasma. Continue supplements. Appreciate help from Pulmonology Chance of respiratory decompensation On Remdesivir Mild Metabolic acidosis with an elevated lactic acid: resolved. Will monitor closely. Elevated cardiac enzymes likely related to above: Slight elevation noted but back to normal. Likely related to COVID infection Type 2 diabetes mellitus: Resume home medication. Will provide sliding scale and Accu-Cheks. Diabetic neuropathy: Continue medication. Hypertension: Continue home medication. Titrate antihypertensives Elevated LFTs LFTs serially Monitor Patient slightly better clinically, has been using BiPAP at night and changed to high flow this morning 40 L at 100% Fi02 Monitor closely and watch for respiratory decompensation Time Spent Managing Pts Care (In Minutes): 42
[2019-11-06] MEDS: ACETYLCYST 20% 800 MG/4 ML VIAL PO SCH ×2 (13:23→20:43)
[2019-11-06] MEDS ORDERED: BUDESONIDE 0.5 MG/2 ML NEB ONE (13:33)
--- NOTE | 2019-11-06 14:17 | P.PN ---
Subjective Date of Service: 11/06/19 Primary Care Provider: [facility] Chief Complaint: Pneumonia grande virus Subjective: Improving (Patient is clinically improving although his requiring very high concentration of oxygen is feeling better complaining of passing black stools hemoglobin stable) Review of Systems General: Weakness Respiratory: Cough, Shortness of Breath Physical Examination - Vital Signs Temperature: 99.3 F Blood Pressure: 153/82 Pulse: 102 Respirations: 24 Pulse Ox (%): 94 - Physical Exam General: Alert, Oriented x3 - Studies Medications List Reviewed: Yes Assessment & Plan - Problems (Diagnosis) (1) Pneumonia due to human coronavirus Current Visit: Yes Status: Acute Plan: Patient admitted with grande virus pneumonia continue to monitor still requiring high concentrations of oxygen patient is subjectively feeling better he alternates bitten high-flow on BiPAP all the complains a black stools will continue to monitor hemoglobin stable patient is anti coagulated due to high risk for thromboembolism
[2019-11-06] MEDS: BUDESONIDE 0.5 MG/2 ML NEB NEB SCH ×2 (14:20→20:15)
[2019-11-06] MEDS: GABAPENTIN 300 MG CAP PO SCH (20:42)
[2019-11-06] MEDS: ATORVASTATIN 20 MG TAB PO SCH (20:42)
[2019-11-06] MEDS: lisinopriL 5 MG TAB PO SCH (20:42)
[2019-11-07 04:16] LABS: Potassium 3.8 mmol/L (3.5-5.1)
[2019-11-07] MEDS: INSULIN -REGULAR HUMAN 50 UNIT/0.5 ML ML SQ SCH ×4 (07:30→21:00)
[2019-11-07] MEDS ORDERED: POTASSIUM CL SA 10 MEQ TAB PO ONE (08:00)
[2019-11-07] MEDS: BUDESONIDE 0.5 MG/2 ML NEB NEB SCH ×2 (08:25→21:30)
[2019-11-07 09:42] LABS: Albumin 2.8 g/dL (3.4-5.0); Bilirubin Direct 0.3 mg/dL (0-0.2); Bilirubin Total 0.7 mg/dL (0.2-1.0); Protein, Total 6.9 g/dL (6.4-8.2)
[2019-11-07] MEDS: ZINC SULFATE 220 MG CAP PO SCH (10:58)
[2019-11-07] MEDS: FUROSEMIDE 20 MG/ 2ML VIAL IV SCH ×2 (10:59→16:39)
[2019-11-07] MEDS: METFORMIN HCL 500 MG TAB PO SCH ×2 (10:59→16:39)
[2019-11-07] MEDS: FOLIC ACID 1 MG TABLET PO SCH (10:59)
[2019-11-07] MEDS: THIAMINE HCL 100 MG TABLET PO SCH (10:59)
[2019-11-07] MEDS: APIXABAN 5 MG TABLET PO SCH ×2 (10:59→21:00)
[2019-11-07] MEDS: levoFLOXacin 500 MG TAB PO SCH (10:59)
[2019-11-07] MEDS: dexAMETHasone 4 MG/ML VIAL IV SCH (11:00)
[2019-11-07] MEDS: Remdesivir 100 MG in NA CHLORIDE 0.9% 250 ML IV SCH (11:01)
[2019-11-07] MEDS: ACETYLCYST 20% 800 MG/4 ML VIAL PO SCH ×2 (11:03→21:00)
[2019-11-07] MEDS: SPIRONOLACTONE 25 MG TABLET PO SCH ×2 (11:10→21:00)
--- NOTE | 2019-11-07 11:47 | P.PN ---
Subjective Date of Service: 11/07/19 Primary Care Provider: [facility] Chief Complaint: Pneumonia grande virus Subjective: No new changes Review of Systems 10-point ROS is otherwise unremarkable Physical Examination - Vital Signs Temperature: 97.2 F Blood Pressure: 142/74 Pulse: 91 Respirations: 28 Pulse Ox (%): 99 - Physical Exam General: Alert, In no apparent distress, Obese HEENT: Atraumatic, Normocephalic Neck: Supple Respiratory: Diminished, Crackles/rales Cardiovascular: Normal pulses, Regular rate/rhythm Capillary refill: <2 Seconds Gastrointestinal: Soft and benign, W/out hepatosplenomegaly Musculoskeletal: No clubbing, No swelling Integumentary: No rashes, No breakdown Neurological: Normal speech, Normal strength at 5/5 x4 extr Lymphatics: No axilla or inguinal lymphadenopathy - Studies Medications List Reviewed: Yes Assessment & Plan Physician Review Additional Text: Acute hypoxic respiratory failure secondary to bilateral positive COVID pneumonia Mild Metabolic acidosis with an elevated lactic acid Elevated cardiac enzymes Type 2 diabetes mellitus Diabetic neuropathy Hypertension Plan: Acute hypoxic respiratory failure secondary to bilateral positive COVID pneumonia: Continue with IV Decadron and antibiotics On high-flow vapotherm 40 L this morning S/p convalescent plasma and Remdesivir Continue supplements. Appreciate help from Pulmonology Chance of respiratory decompensation Mild Metabolic acidosis with an elevated lactic acid: resolved. Will monitor closely. Elevated cardiac enzymes likely related to above: Slight elevation noted but back to normal. Likely related to COVID infection Type 2 diabetes mellitus: Resume home medication. Will provide sliding scale and Accu-Cheks. Diabetic neuropathy: Continue medication. Hypertension: Continue home medication. Titrate antihypertensives Elevated LFTs LFTs serially Monitor Time Spent Managing Pts Care (In Minutes): 39
--- NOTE | 2019-11-07 11:55 | P.PN ---
Subjective Date of Service: 11/07/19 Primary Care Provider: [facility] Chief Complaint: Respiratory failure Condition stable patient still requiring BiPAP and high concentration of oxygen Review of Systems General: Weakness Respiratory: Cough, Shortness of Breath Physical Examination - Vital Signs Temperature: 97.2 F Blood Pressure: 142/74 Pulse: 91 Respirations: 28 Pulse Ox (%): 99 - Physical Exam General: Alert, Cooperative - Studies Medications List Reviewed: Yes Assessment & Plan - Problems (Diagnosis) (1) Pneumonia due to human coronavirus Current Visit: Yes Status: Acute Plan: Patient has respiratory failure from grande virus continue to monitor wean off oxygen and maximum therapy labs reviewed patient has had convalescent plasma cheridesmir
[2019-11-07] MEDS: GABAPENTIN 300 MG CAP PO SCH (21:00)
[2019-11-07] MEDS: ATORVASTATIN 20 MG TAB PO SCH (21:00)
[2019-11-07] MEDS: lisinopriL 5 MG TAB PO SCH (21:00)
[2019-11-08 06:11] LABS: ALT/SGPT 60 U/L (12-78); AST/SGOT 59 U/L (15-37); Albumin 2.5 g/dL (3.4-5.0); Alkaline Phosphatase 59 U/L (45-117); Bilirubin Direct 0.2 mg/dL (0-0.2); Bilirubin Total 0.6 mg/dL (0.2-1.0); Potassium 3.9 mmol/L (3.5-5.1); Protein, Total 6.6 g/dL (6.4-8.2)
[2019-11-08] MEDS: INSULIN -REGULAR HUMAN 50 UNIT/0.5 ML ML SQ SCH ×4 (07:30→21:00)
[2019-11-08] MEDS ORDERED: POTASSIUM CL SA 10 MEQ TAB PO ONE (08:00)
[2019-11-08] MEDS: BUDESONIDE 0.5 MG/2 ML NEB NEB SCH ×2 (08:23→20:05)
[2019-11-08] MEDS: dexAMETHasone 4 MG/ML VIAL IV SCH (08:36)
[2019-11-08] MEDS: FOLIC ACID 1 MG TABLET PO SCH (08:37)
[2019-11-08] MEDS: levoFLOXacin 500 MG TAB PO SCH (08:37)
[2019-11-08] MEDS: THIAMINE HCL 100 MG TABLET PO SCH (08:37)
[2019-11-08] MEDS: METFORMIN HCL 500 MG TAB PO SCH ×2 (08:37→17:05)
[2019-11-08] MEDS: ZINC SULFATE 220 MG CAP PO SCH (08:37)
[2019-11-08] MEDS: APIXABAN 5 MG TABLET PO SCH ×2 (08:38→20:25)
[2019-11-08] MEDS: SPIRONOLACTONE 25 MG TABLET PO SCH ×2 (08:38→20:24)
[2019-11-08] MEDS: FUROSEMIDE 20 MG/ 2ML VIAL IV SCH ×2 (08:38→17:05)
[2019-11-08] MEDS: Remdesivir 100 MG in NA CHLORIDE 0.9% 250 ML IV SCH (09:37)
--- NOTE | 2019-11-08 10:48 | P.PN ---
Subjective Date of Service: 11/08/19 Primary Care Provider: [facility] Chief Complaint: Pneumonia grande virus Subjective: No new changes, Improving Review of Systems 10-point ROS is otherwise unremarkable Physical Examination - Vital Signs Temperature: 97.0 F Blood Pressure: 108/76 Pulse: 74 Respirations: 17 Pulse Ox (%): 90 - Physical Exam General: Alert, In no apparent distress, Obese HEENT: Atraumatic, Normocephalic Neck: Supple Respiratory: Diminished, Crackles/rales Cardiovascular: Regular rate/rhythm, Normal S1 S2 Capillary refill: <2 Seconds Gastrointestinal: Soft and benign, W/out hepatosplenomegaly Musculoskeletal: No clubbing, No swelling Integumentary: No rashes Neurological: Normal speech, Normal strength at 5/5 x4 extr Lymphatics: No axilla or inguinal lymphadenopathy Urinary: Other (no bladder distention ) - Studies Microbiology Data (last 24 hrs): 11/02/19 12:35 Blood - Blood Aerobic Blood Culture - Final No growth in 5 days. 11/02/19 12:35 Blood - Blood Anaerobic Blood Culture - Final No growth in 5 days. 11/02/19 12:20 Blood - Blood Aerobic Blood Culture - Final No growth in 5 days. 11/02/19 12:20 Blood - Blood Anaerobic Blood Culture - Final No growth in 5 days. Medications List Reviewed: Yes Assessment & Plan - Problems (Diagnosis) (1) Pneumonia due to human coronavirus Current Visit: Yes Status: Acute Physician Review Additional Text: Acute hypoxic respiratory failure secondary to bilateral positive COVID pneumonia Mild Metabolic acidosis with an elevated lactic acid Elevated cardiac enzymes Type 2 diabetes mellitus Diabetic neuropathy Hypertension Plan: Acute hypoxic respiratory failure secondary to bilateral positive COVID pneumonia: Continue with IV Decadron and antibiotics Still on high-flow vapotherm 40 L S/p convalescent plasma and Remdesivir Continue supplements. Appreciate help from Pulmonology Patient is clinically better Mild Metabolic acidosis with an elevated lactic acid: resolved. Will monitor closely. Elevated cardiac enzymes likely related to above: Slight elevation noted but back to normal. Likely related to COVID infection Type 2 diabetes mellitus: Resume home medication. Will provide sliding scale and Accu-Cheks. Diabetic neuropathy: Continue medication. Hypertension: Continue home medication. Titrate antihypertensives Elevated LFTs Will get a CMP in a.m. Disposition : Patient is clinically better, on COVID 19 pneumonia Trying to wean off oxygen Monitor closely Time Spent Managing Pts Care (In Minutes): 45
--- NOTE | 2019-11-08 11:58 | P.PN ---
Subjective Date of Service: 11/08/19 Primary Care Provider: [facility] Chief Complaint: Pneumonia grande virus patient patient is still requiring high concentrations of oxygen not weanable yet Review of Systems General: Weakness Respiratory: Shortness of Breath Physical Examination - Vital Signs Temperature: 97.0 F Blood Pressure: 126/82 Pulse: 80 Respirations: 21 Pulse Ox (%): 93 - Studies Microbiology Data (last 24 hrs): 11/02/19 12:35 Blood - Blood Aerobic Blood Culture - Final No growth in 5 days. 11/02/19 12:35 Blood - Blood Anaerobic Blood Culture - Final No growth in 5 days. 11/02/19 12:20 Blood - Blood Aerobic Blood Culture - Final No growth in 5 days. 11/02/19 12:20 Blood - Blood Anaerobic Blood Culture - Final No growth in 5 days. Medications List Reviewed: Yes Assessment & Plan - Problems (Diagnosis) (1) Pneumonia due to human coronavirus Current Visit: Yes Status: Acute Plan: patient has a respiratory failure not weanable yet vital signs are stable reduce the dose of Decadron to 2 mg p.o. b.i.d. patient is in negative fluid balance he has had maximum treatment labs reviewed
--- NOTE | 2019-11-08 13:08 | RAD REPORT ---
EXAM DESCRIPTION: RAD - Chest Single View - 11/08/2019 12:48 pm CLINICAL HISTORY: pneumonia Chest pain. COMPARISON: Chest Single View dated 11/05/2019; Chest Single View dated 11/04/2019; Chest Single View dated 11/02/2019; Chest Pa And Lat (2 Views) dated 10/28/2018 FINDINGS: Portable technique limits examination quality. Since 11/05/2019, little overall change is seen in bilateral pulmonary opacities most compatible with pneumonia. The heart is upper limit normal in size. No displaced fractures. IMPRESSION: Stable chest since 11/05/2019.
[2019-11-08] MEDS: ATORVASTATIN 20 MG TAB PO SCH (20:24)
[2019-11-08] MEDS: lisinopriL 5 MG TAB PO SCH (20:25)
[2019-11-08] MEDS: GABAPENTIN 300 MG CAP PO SCH (20:25)
[2019-11-08] MEDS: dexAMETHasone 4 MG TAB PO SCH (20:26)
[2019-11-08] MEDS ORDERED: guaiFENesin 100 MG/5 ML UCUP PO PRN (23:51)
[2019-11-09 04:43] LABS: Albumin 2.6 g/dL (3.4-5.0); Bilirubin Direct 0.2 mg/dL (0-0.2); Bilirubin Total 0.7 mg/dL (0.2-1.0); Potassium 4.6 mmol/L (3.5-5.1); Protein, Total 6.6 g/dL (6.4-8.2)
[2019-11-09] MEDS: INSULIN -REGULAR HUMAN 50 UNIT/0.5 ML ML SQ SCH ×3 (07:30→16:30)
[2019-11-09] MEDS: ZINC SULFATE 220 MG CAP PO SCH (08:38)
[2019-11-09] MEDS: FOLIC ACID 1 MG TABLET PO SCH (08:39)
[2019-11-09] MEDS: levoFLOXacin 500 MG TAB PO SCH (08:39)
[2019-11-09] MEDS: SPIRONOLACTONE 25 MG TABLET PO SCH (08:39)
[2019-11-09] MEDS: METFORMIN HCL 500 MG TAB PO SCH ×2 (08:39→17:09)
[2019-11-09] MEDS: THIAMINE HCL 100 MG TABLET PO SCH (08:39)
[2019-11-09] MEDS: dexAMETHasone 4 MG TAB PO SCH (08:39)
[2019-11-09] MEDS: APIXABAN 5 MG TABLET PO SCH (08:39)
[2019-11-09] MEDS: FUROSEMIDE 20 MG/ 2ML VIAL IV SCH ×2 (08:39→17:09)
[2019-11-09] MEDS: Remdesivir 100 MG in NA CHLORIDE 0.9% 250 ML IV SCH (09:57)
[2019-11-09] MEDS: BUDESONIDE 0.5 MG/2 ML NEB NEB SCH (10:27)
--- NOTE | 2019-11-09 11:01 | P.PN ---
Subjective Date of Service: 11/09/19 Primary Care Provider: [facility] Chief Complaint: Pneumonia grande virus Subjective: No new changes, Improving Review of Systems 10-point ROS is otherwise unremarkable Physical Examination - Vital Signs Temperature: 97.4 F Blood Pressure: 139/88 Pulse: 85 Respirations: 15 Pulse Ox (%): 97 - Physical Exam General: Alert, In no apparent distress HEENT: Atraumatic, Normocephalic Neck: Supple, 2+ carotid pulse no bruit Respiratory: Normal air movement, Crackles/rales Cardiovascular: Normal pulses, Regular rate/rhythm Capillary refill: <2 Seconds Gastrointestinal: Soft and benign, W/out hepatosplenomegaly Musculoskeletal: No clubbing, No swelling Integumentary: No rashes, No breakdown Neurological: Normal speech, Normal strength at 5/5 x4 extr Lymphatics: No axilla or inguinal lymphadenopathy - Studies Medications List Reviewed: Yes Assessment & Plan - Problems (Diagnosis) (1) Pneumonia due to human coronavirus Current Visit: Yes Status: Acute Physician Review Additional Text: Acute hypoxic respiratory failure secondary to bilateral positive COVID pneumonia Mild Metabolic acidosis with an elevated lactic acid Elevated cardiac enzymes Type 2 diabetes mellitus Diabetic neuropathy Hypertension Plan: Acute hypoxic respiratory failure secondary to bilateral positive COVID pneumonia: Continue with IV Decadron and antibiotics Still on high-flow vapotherm 40 L S/p convalescent plasma and Remdesivir Continue supplements. Appreciate help from Pulmonology Patient is clinically getting better Mild Metabolic acidosis with an elevated lactic acid: resolved. Will monitor closely. Elevated cardiac enzymes likely related to above: Slight elevation noted but back to normal. Likely related to COVID infection Type 2 diabetes mellitus: Resume home medication. Will provide sliding scale and Accu-Cheks. Diabetic neuropathy: Continue medication. Hypertension: Continue home medication. Titrate antihypertensives Disposition : Patient is clinically better, on COVID 19 pneumonia Trying to wean off oxygen Monitor closely Still on high-flow, will try to wean off Time Spent Managing Pts Care (In Minutes): 43
--- NOTE | 2019-11-09 11:43 | P.PN ---
Subjective Date of Service: 11/09/19 Primary Care Provider: [facility] Chief Complaint: Pneumonia grande virus Patient is clinically improving currently on high-flow nasal cannula oxygen is condition remains stable Review of Systems General: Weakness Respiratory: Shortness of Breath Physical Examination - Vital Signs Temperature: 97.4 F Blood Pressure: 139/88 Pulse: 85 Respirations: 15 Pulse Ox (%): 97 - Physical Exam General: Other (Exam deferred patient is in isolation) - Studies Medications List Reviewed: Yes Assessment & Plan - Problems (Diagnosis) (1) Pneumonia due to human coronavirus Current Visit: Yes Status: Acute Plan: Patient is clinically improving plan to wean him down to nasal cannula and plan for discharge
[2019-11-09 17:49] VITALS: TEMP 97.2
[2019-11-09 18:15] VITALS: BP 107/69
--- NOTE | 2019-11-09 18:20 | P.DS ---
Admission Date: 11/02/19 Discharge Date: 11/10/19 Primary Care Provider: [facility] Disposition: ROUTINE DISCHARGE Discharge Condition: FAIR Reason for Admission: Pneumonia grande virus - Problems (1) Pneumonia due to human coronavirus Status: Acute Brief History of Present Illness: 69-year-old male with past medical history of type 2 diabetes mellitus, hypertension, hyperlipidemia, diabetic neuropathy who was diagnosed positive for COVID 19 presents to the emergency room complaining of increasing shortness of breath, cough and labored breathing. Patient states that he was told on ThursdayOctober 28 of that his COVID screen was positive. Patient has had increasing difficulty in breathing. Feels short of breath and is having more labored breathing. States he gets winded with minimal effort. In the emergency room patient was found to have room air saturations of 81% and labored breathing. He was started on oxygen support at 2 L nasal cannula which only brought his oxygen saturations up to 88%. O2 was increased to 6 L which did not improve much his oxygen saturations. Patient is currently on a non rebreathing mask at 15 L with oxygen saturations of 95%. Lab work shows an elevated D-dimer of 17 26, lactic acid of 2.6, ferritin of 1514 and a slightly elevated troponin 0 0.06. Patient had also been started on oral antibiotics with Cefdinir and azithromycin which have not helped. Chest x-ray shows bilateral pulmonary opacities with the right greater than the left. On examination patient is calm. Alert and oriented x3. States that he was very concerned because he did not feel like he was breathing well. He is doing much better now on a non rebreathing mask but is still having labored breathing and gets very short of breath with a drop in oxygen saturations while speaking. He is agreeable to convalescent plasma. Patient is also complaining of nausea vomiting and coughing. States his nausea and vomiting have improved some with medicine. Due to is difficulty maintaining adequate oxygen saturations and requiring significant O2 support patient will be admitted and further evaluated. Hospital Course: Acute hypoxic respiratory failure secondary to bilateral positive COVID pneumonia Mild Metabolic acidosis with an elevated lactic acid Elevated cardiac enzymes Type 2 diabetes mellitus Diabetic neuropathy Hypertension Acute hypoxic respiratory failure secondary to bilateral positive COVID pneumonia: Continue with IV Decadron and antibiotics wAS on high-flow vapotherm 40 L and BiPAP initially S/p convalescent plasma and Remdesivir Continue supplements. Appreciate help from Pulmonology Mild Metabolic acidosis with an elevated lactic acid: resolved. Will monitor closely. Elevated cardiac enzymes likely related to above: Slight elevation noted but back to normal. Likely related to COVID infection Type 2 diabetes mellitus: Resume home medication. Will provide sliding scale and Accu-Cheks. Diabetic neuropathy: Continue medication. Hypertension: Continue home medication. Titrate antihypertensives Oxygen supplementation was titrated and he is saturating welland wanted to go home and is being discharged home today in a stable condition with advice to continue home O2 and also to follow up with PCP and pulmonology. advice about ER precautions if he develops fever or get more short of breath Vital Signs/Physical Exam: Temp Pulse Resp BP Pulse Ox 97.2 F 93 H 21 H 107/69 99 11/09/19 16:00 11/09/19 18:00 11/09/19 18:00 11/09/19 18:00 11/09/19 17:00 General: Alert, In no apparent distress, Obese HEENT: Atraumatic, Normocephalic Neck: Supple Respiratory: Normal air movement Cardiovascular: Regular rate/rhythm, Normal S1 S2 Capillary refill: <2 Seconds Gastrointestinal: Soft and benign, W/out hepatosplenomegaly Musculoskeletal: No clubbing, No swelling Integumentary: No rashes Neurological: Normal speech, Normal strength at 5/5 x4 extr Lymphatics: No axilla or inguinal lymphadenopathy Laboratory Data at Discharge: WBC 10.2 K/uL (4.3-10.9) D 11/06/19 09:47 Hgb 14.3 g/dL (13.6-17.9) 11/06/19 09:47 Hct 41.6 % (39.6-49.0) 11/06/19 09:47 Plt Count 336 K/uL (152-406) 11/06/19 09:47 PT 14.2 SECONDS (9.5-12.5) H 11/02/19 12:20 INR 1.21 11/02/19 12:20 APTT 29.9 SECONDS (24.3-36.9) 11/02/19 12:20 Sodium 138 mmol/L (136-145) 11/07/19 03:18 Potassium 4.6 mmol/L (3.5-5.1) 11/09/19 03:45 BUN 23 mg/dL (7-18) H 11/07/19 03:18 Creatinine 0.88 mg/dL (0.55-1.3) 11/09/19 03:45 Glucose 141 mg/dL (74-106) H 11/07/19 03:18 Magnesium 2.5 mg/dL (1.8-2.4) H 11/03/19 04:20 Total Bilirubin 0.7 mg/dL (0.2-1.0) 11/09/19 03:45 AST 60 U/L (15-37) H 11/09/19 03:45 ALT 60 U/L (12-78) 11/09/19 03:45 Alkaline Phosphatase 57 U/L (45-117) 11/09/19 03:45 Troponin I 0.04 ng/mL (0.0-0.045) 11/03/19 08:00 Triglycerides 149 mg/dL (<150) 11/03/19 04:20 Cholesterol 140 mg/dL (<200) 11/03/19 04:20 HDL Cholesterol 19 mg/dL (40-60) L 11/03/19 04:20 Cholesterol/HDL Ratio 7.37 11/03/19 04:20 Lipase 194 U/L (73-393) 11/02/19 12:20 Home Medications: Atorvastatin Calcium [Lipitor*] 20 mg PO BEDTIME 11/03/19 Benzonatate 100 mg PO TID PRN 11/03/19 Gabapentin 2 cap PO BEDTIME 11/03/19 Guaifenesin/Codeine Phosphate [Guaiatussin AC Liquid] 5 ml PO Q6H PRN 11/03/19 Lisinopril [Zestril] 5 mg PO BEDTIME 11/03/19 hydrOXYzine HCL [Atarax*] 25 mg PO PRN PRN 11/03/19 Apixaban [Eliquis] 5 mg PO BID #14 tablet 11/09/19 Budesonide [Pulmicort*] 0.5 mg NEB BIDRESP #1 amp 11/09/19 Furosemide [Lasix] 20 mg PO BIDL #20 tab 11/09/19 Spironolactone [Aldactone*] 25 mg PO BID #14 tab 11/09/19 Thiamine HCl [Vitamin B-1*] 100 mg PO DAILY #15 tablet 11/09/19 Zinc Sulfate [Zinc Sulfate*] 220 mg PO DAILY #15 cap 11/09/19 predniSONE [Deltasone] 20 mg PO BID #20 tab 11/09/19 Nebulizer [Aeroneb Go Nebulizer] 1 each Q-VISIT #1 each 11/10/19 New Medications: Nebulizer [Aeroneb Go Nebulizer] 1 each Q-VISIT #1 each Spironolactone [Aldactone*] 25 mg PO BID #14 tab Apixaban [Eliquis] 5 mg PO BID #14 tablet Furosemide [Lasix] 20 mg PO BIDL #20 tab predniSONE [Deltasone] 20 mg PO BID #20 tab Budesonide [Pulmicort*] 0.5 mg NEB BIDRESP #1 amp Thiamine HCl [Vitamin B-1*] 100 mg PO DAILY #15 tablet Zinc Sulfate [Zinc Sulfate*] 220 mg PO DAILY #15 cap Diet: ADA Followup: Escobar Hernandez MD [ACTIVE - CAN ADMIT] - Time spent managing pt's care (in minutes): 42
[2019-11-09 19:31] VITALS: O2SAT 93
== END 2019-11-09 19:05 | disposition home or self-care (01) | DRG 177 ==
LOC: ER 11:45 → ERHOLD 15:21 → 4TH 17:16 → 3RD-ICU 11-07 18:51
PROVIDERS: ADMIT Family Medicine; ATTEND Family Medicine
PROC: 30233K1 Transfusion of Nonautologous Frozen Plasma into Peripheral Vein, Percutaneous Approach (ICD-10-PCS; principal; 2019-11-02)
PROC: 8E0ZXY6 Isolation (ICD-10-PCS; 2019-11-02)
DX: U07.1 COVID-19 (principal); J12.89 Other viral pneumonia; J96.01 Acute respiratory failure with hypoxia; E87.2 Acidosis; I10 Essential (primary) hypertension; E78.5 Hyperlipidemia, unspecified; R79.89 Other specified abnormal findings of blood chemistry; E11.40 Type 2 diabetes mellitus with diabetic neuropathy, unspecified; E66.9 Obesity, unspecified; Z68.39 Body mass index [BMI] 39.0-39.9, adult; Z96.642 Presence of left artificial hip joint; Z90.49 Acquired absence of other specified parts of digestive tract; Z79.899 Other long term (current) drug therapy; Z88.8 Allergy status to other drugs, medicaments and biological substances
CPT/HCPCS: 36415; 36430; 71045; 80048; 80053; 80061; 80076; 81003; 81015; 82565; 82728; 82805; 82947; 83036; 83605; 83690; 83735; 83880; 84132; 84145; 84439; 84443; 84484; 85025; 85379; 85610; 85730; 86140; 86850; 86900; 86901; 86927; 87040; 93005; 94640; 94660; 94760; 96361; 96365; 96366; 96375; 99285; J1100; J1650; J1940; J2405; J3411; J7030; J7040; J7050; J8540

== ENCOUNTER 2020-03-17 10:06 | Emergency (ER) | payer MEDICARE, OTHER ==
--- OUTSIDE RECORDS SUMMARY | 2020-03-17 10:08 | XMS REPORT | Clinical Summary ---
:1950 Author Organization [facility] Address [address] [place] [address] Care Team Providers Name Role Phone Unavailable Primary Care Provider Unavailable Allergies Not on File Medications Not on file Active Problems Not on file Social History Tobacco Use Types Packs/Day Years Used Date Never Assessed Sex Assigned at Date Recorded Not on file Last Filed Vital Signs Not on file Plan of Treatment Not on file Results Not on fileafter 03/17/2019
--- OUTSIDE RECORDS SUMMARY | 2020-03-17 10:08 | XMS REPORT | Clinical Summary ---
:1950 Author Organization [facility] Address [address] [place] [address] Care Team Providers Name Role Phone Asked, No Pcp Primary Care Provider Unavailable Allergies No Known Active Allergies Medications Medication Sig Dispensed Refills Start [...] (#1) 1998 65+ PNEUMOCOCCAL VACCINE (1 of 1 - PPSV23) 2013 INFLUENZA VACCINE 11/19/2019 Results Not on fileafter 03/17/2019 Insurance Payer Benefit Plan / Subscriber ID Effective Dates Phone Addre ss Type Group MEDICARE MEDICARE PART A [id number] 2013-Present POOJA Amezcua MD Medicare AND B Advance Directives For more information, please contact: [phone] Type Date 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
--- NOTE | 2020-03-17 12:02 | ER ---
Nurse's Notes [facility] Name: Thiago Selby Age: 69 yrs Sex: Male : 1950 Arrival Date: 03/17/2020 Time: 10:08 Bed 17 Private MD: Diagnosis: Back pain Presentation: 03/17 10:24 Chief complaint: Patient states: R mid back and low back pain radiating to the front x ca1 couple of months, progressively worse last couple days. Denies urinary symptoms. Reports multiple back injuries in the past years. Coronavirus screen: Client denies travel out of the [place] in the last 14 days. At this time, the client does not indicate any symptoms associated with coronavirus-19. Ebola Screen: Patient negative for fever greater than or equal to 101.5 degrees Fahrenheit, and additional compatible Ebola Virus Disease symptoms Patient denies exposure to infectious person. Patient denies travel to an Ebola-affected area in the 21 days before illness onset. No symptoms or risks identified at this time. Initial Sepsis Screen: Does the patient meet any 2 criteria? No. Patient's initial sepsis screen is negative. Does the patient have a suspected source of infection? No. Patient's initial sepsis screen is negative. Risk Assessment: Do you want to hurt yourself or someone else? Patient reports no desire to harm self or others. Onset of symptoms was March 17, 2020. 10:24 Method Of Arrival: Ambulatory ca1 10:24 Acuity: NOE 4 ca1 Historical: - Allergies: 10:43 Flonase; ca1 - PMHx: 10:43 Diabetes - NIDDM; Hypertension; ca1 - PSHx: 10:43 Knee surgery; ca1 - Immunization history:: Adult Immunizations up to date. - Social history:: Smoking status: Patient denies any tobacco usage or history of. - Family history:: not pertinent. - Hospitalizations: : No recent hospitalization is reported. Screenin:28 Abuse screen: Denies threats or abuse. Nutritional screening: No deficits noted. rb3 Tuberculosis screening: No symptoms or risk factors identified. Fall Risk None identified. Assessment: 10:28 General: Appears in no apparent distress. Behavior is calm, cooperative. Pain: rb3 Complains of pain in right mid back and right low back Pain radiates to front Pain began x couple months. Neuro: Level of Consciousness is awake, alert, obeys commands, Oriented to person, place, time, situation. Cardiovascular: Patient's skin is warm and dry. Respiratory: Airway is patent Respiratory effort is even, unlabored, Respiratory pattern is regular, symmetrical. GI: No signs and/or symptoms were reported involving the gastrointestinal system. : No signs and/or symptoms were reported regarding the genitourinary system. Musculoskeletal: Range of motion: intact in all extremities. 11:11 Reassessment: Pt. went to x-ray. rb3 11:30 Reassessment: Patient appears in no apparent distress at this time. Patient and/or rb3 family updated on plan of care and expected duration. Pain level reassessed. Patient is alert, oriented x 3, equal unlabored respirations, skin warm/dry/pink. Vital Signs: 10:24 BP 164 / 99; Pulse 75; Resp 17 S; Temp 97.6(TE); Pulse Ox 100% on R/A; ca1 11:25 BP 130 / 71; Pulse 67; Resp 17; Pulse Ox 99% ; rb3 ED Course: 10:08 Patient arrived in ED. mr 10:23 Ventura Lara MD is Attending Physician. rn 10:28 Patient has correct armband on for positive identification. Bed in low position. Call rb3 light in reach. Side rails up X 1. Pulse ox on. NIBP on. 10:40 Katerina Jacobson, RN is Primary Nurse. rb3 10:42 Triage completed. ca1 10:43 Arm band placed on right wrist. ca1 11:57 XRAY Chest Pa And Lat (2 Views) In Process Unspecified. EDMS 11:57 XRAY Ribs RIGHT In Process Unspecified. EDMS 12:05 No provider procedures requiring assistance completed. Patient did not have IV access rb3 during this emergency room visit. Administered Medications: No medications were administered Outcome: 12:02 Discharge ordered by . rn 12:05 Discharged to home ambulatory. rb3 12:05 Condition: stable 12:05 Discharge instructions given to patient, Instructed on discharge instructions, follow up and referral plans. Demonstrated understanding of instructions, follow-up care, Prescriptions given X none 12:07 Patient left the ED. rb3 Signatures: Dispatcher [employer] [facility] Nicole Laughlin mr Ventura Lara MD MD rn Acob, Cheryl, RN RN ca1 Katerina Jacobson RN RN rb3 Corrections: (The following items were deleted from the chart) 10:44 10:24 Chief complaint: Patient states: R mid back and low back pain x couple of months, ca1 progressively worse last couple days. Denies urinary symptoms. Reports multiple back injuries in the past years. ca1
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
--- NOTE | 2020-03-17 12:49 | RAD REPORT ---
EXAM DESCRIPTION: RAD - Chest Pa And Lat (2 Views) - 03/17/2020 11:57 am CLINICAL HISTORY: back pain/right rib pain Chest pain. COMPARISON: Chest Single View dated 11/08/2019; Chest Single View dated 11/05/2019; Chest Single View dated 11/04/2019; Chest Single View dated 11/02/2019 FINDINGS: The lungs are clear. The heart is normal in size. No displaced fractures. IMPRESSION: No acute or concerning finding suspected.
--- NOTE | 2020-03-17 12:50 | RAD REPORT ---
EXAM DESCRIPTION: RAD - Ribs Right - 03/17/2020 11:57 am CLINICAL HISTORY: PAIN Right-sided rib pain COMPARISON: Chest Pa And Lat (2 Views) dated 03/17/2020 FINDINGS: No displaced rib fracture is seen. No aggressive rib lesion.
[2020-03-17 14:42] VITALS: BP 164/99; TEMP 97.6; O2SAT 100
== END 2020-03-17 12:07 | disposition home or self-care (01) ==
LOC: ER 10:06
DX: M54.9 Dorsalgia, unspecified (principal); I10 Essential (primary) hypertension; Z88.8 Allergy status to other drugs, medicaments and biological substances
CPT/HCPCS: 71046; 99283

== ENCOUNTER 2020-04-07 04:31 | Emergency (ER) | payer MEDICARE ==
--- OUTSIDE RECORDS SUMMARY | 2020-04-07 04:36 | XMS REPORT | Clinical Summary ---
:1950 Author Organization [facility] Address [address] [place] [address] Care Team Providers Name Role Phone Unavailable Primary Care Provider Unavailable Allergies Not on File Medications Not on file Active Problems Not on file Social History Tobacco Use Types Packs/Day Years Used Date Never Assessed Sex Assigned at Date Recorded Not on file Last Filed Vital Signs Not on file Plan of Treatment Not on file Results Not on fileafter 04/07/2019
--- OUTSIDE RECORDS SUMMARY | 2020-04-07 04:36 | XMS REPORT | Clinical Summary ---
:1950 Author Organization [facility] Address [address] [place] [address] Care Team Providers Name Role Phone Asked, [...] Health Maintenance Due Date Last Done Comments COVID-19 VACCINE (#1) 1964 COLONOSCOPY SCREENING 1998 SHINGLES VACCINES (#1) 1998 65+ PNEUMOCOCCAL VACCINE (1 of - PPSV23) 2013 INFLUENZA VACCINE 11/19/2019 Results Not on fileafter 04/07/2019 Insurance Payer Benefit Plan / Subscriber ID Effective Dates Phone Addre ss Type Group MEDICARE MEDICARE PART A [id number] 2013-Present ELIZABETH GONZALEZ Medicare AND B (Home) [place] [address] Advance Directives For more information, please contact: [phone] Type Date 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
--- OUTSIDE RECORDS SUMMARY | 2020-04-07 04:36 | XMS REPORT | Summary of Care ---
:1950 Author Organization [facility] - Health Address [address] [place] [address] Care Team Providers Name Role Phone Bebeto Scales Primary Care Provider Encounter Details Date Type Department Care Team Description 03/26/2020 Orders Only [facility] Doctor Unassigned, No [address] [facility] [place] [address] [address] [place] [address] Allergies No Known Allergiesdocumented as of this encounter (statuses as of 03/27/2020) Medications Medication Sig Dispensed Refills Start Date End Date Status gabapentin 300 mg Take 600 mg by 0 Active capsule mouth at bedtime. meloxicam 7.5 mg tablet Take 7.5 mg by 0 Active mouth daily. documented as of this encounter (statuses as of 03/27/2020) Active Problems Problem Noted Date Post-op pain 02/10/2018 Pain 07/15/2017 Total knee replacement status 03/30/2017 documented as of this encounter (statuses as of 03/27/2020) Social History Tobacco Use Types Packs/Day Years Used Date Never Smoker Smokeless Tobacco: Never Used Alcohol Use Drinks/Week oz/Week Comments No Sex Assigned at Date Recorded Not on file documented as of this encounter Last Filed Vital Signs Not on filedocumented in this encounter Plan of Treatment Date Type Specialty Care Team Description 03/28/2020 Office Visit Thoracic Surgery Winston Puckett MD [address] [place], [place] [phone] Health Maintenance Due Date Last Done Comments HEPATITIS C (HCV) SCREEN 1950 Depression Screening 1960 DTaP,Tdap,and Td Vaccines (1 - Tdap) 1967 COLON CANCER SCREENING ANNUAL FIT/FOBT 1998 COLON CANCER SCREENING FIT DNA EVERY 3 YEARS 1998 COLON CANCER SCREENING SIGMOIDOSCOPY EVERY 5 YEARS 1998 COLONOSCOPY 1998 Colorectal Cancer Screening 1998 Zoster Recombinant Vaccine (SHINGRIX) (1 of 2) 1998 Medicare Wellness Visit 2013 PNEUMOCOCCAL VACCINES 65+ (1 of 1 - PPSV23) 2013 INFLUENZA VACCINE (#1) 2019 documented as of this encounter Implants Implanted Type Area Soda Flaker Device Shelf Model / Identifier Expiration Serial / Date Lot Palacos R+G Bone Cement With Gent CEMENT Right: Knee [employer]omet 10/17/2020 [id number] / Implanted: Qty: 1 on 03/30/2017 by Rudy Carrion MD at [facility] 8 [id number] / [id number] Primary Tibial Modular Tray KNEE Right: Knee [employer] 10/06/2021 [id number] / Implanted: Qty: 1 on 03/30/2017 by Rudy Carrion MD at [facility] 3 [id number] / [id number] Series-A Standard Patella KNEE Right: Knee [employer]omet [id number] / Implanted: Qty: 1 on 03/30/2017 by Rudy Carrion MD at [facility] 1 [id number] / [id number] Self Tappping Bone Screw KNEE Right: Knee Biomet 03/2027 [id number] / Implanted: Qty: 2 on 03/30/2017 by Rudy Carrion MD at [facility] 3 [id number] / [id number] Self Tapping Bone Screw KNEE Right: Knee [employer]omet 05/22 [id number] / Implanted: Qty: 1 on 03/30/2017 by Rudy Carrion MD at [facility] 3 [id number] / [id number] Self Tapping Bone Screw KNEE Right: Knee [employer]omet 08/19 [id number] / Implanted: Qty: 1 on 03/30/2017 by Rudy Carrion MD at [facility] 7 [id number] / [id number] Modular Finned Stem KNEE Right: Knee Biomet 03/11/20 27 [id number] / Implanted: Qty: 1 on 03/30/2017 by Rudy Carrion MD at [facility] 7 [id number] / [id number] Cr Femoral-Right KNEE Right: Knee [employer]omet 02/19/2027 [id number] / Implanted: Qty: 1 on 03/30/2017 by Rudy Carrion MD at [facility] 2 [id number] / [id number] Cr Tibial Bearing KNEE Right: Knee [employer]omet 01/25/2022 [id number] / Implanted: Qty: 1 on 03/30/2017 by Rudy Carrion MD at [facility] 4 [id number] / [id number] Adc J[employer] Suture [place] 2.9 Mm - [id number] SHOULDER Right: B iomet 07/15/2022 [id number] / Implanted: Qty: 1 on 02/10/2018 by Ronaldo Chavira MD at [facility] Shoulder P [id number] / [id number] Adc [employer] Suture [place] 2.9 Mm - [id number] SHOULDER Right: B iomet 03/03/2022 [id number] / Implanted: Qty: 1 on 02/10/2018 by Ronaldo Chavira MD at [facility] Shoulder P [id number] / [id number] documented as of this encounter Procedures Procedure Name Priority Date/Time Associated Diagnosis Comme nts REFERRAL- Routine 03/26/2020 12:01 AM 

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
--- OUTSIDE RECORDS SUMMARY | 2020-04-07 04:36 | XMS REPORT | Summary of Care ---
:1950 Author Organization [facility] Address [address] [place] [address] Care Team Providers Name Role Phone Bebeto Scales Primary Care Provider Reason for Visit Reason Comments Orders Encounter Details Date Type Department Care Team Description 03/30/2020 Telephone [facility] Thoracic Clara Puckett MD Orders Surgery- [address] [address] [address] [place] [address] [phone] Allergies No Known Allergiesdocumented as of this encounter (statuses as of 03/30/2020) Medications Medication Sig Dispensed Refills Start Date End Date Status gabapentin 300 mg Take 600 mg by 0 Active capsule mouth at bedtime. meloxicam 7.5 mg Take 7.5 mg by 0 Active tablet mouth daily. lisinopriL 5 mg TAKE ONE TABLET BY 0 05/11/2019 Active tablet MOUTH AT BEDTIME FOR HEART/ BLOOD PRESSURE metformin HCl Take by mouth. 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 documented as of this encounter Last Filed Vital Signs Not on filedocumented in this encounter Miscellaneous Notes Telephone Encounter - Eriberto Randall - 03/30/2020 10:01 AM CSTPatient called and stated at the last appointment he was told to continue exercising. He is inquiring if physical therapy is an option, and if so can we order it. He stated he would [facility] to [facility] to [facility] the sessions. documented in this encounter Plan of Treatment Date Type Specialty Care Team Description 03/30/2020 Hospital Encounter Radiology Priscilla King se Acosta, ACNP [address] [place] [address] [phone] Health Maintenance Due Date Last Done Comments HEPATITIS C (HCV) SCREEN 1950 Depression Screening 1960 DTaP,Tdap,and Td Vaccines (1 - Tdap) 1967 COLON CANCER SCREENING ANNUAL FIT/FOBT 1998 COLON CANCER SCREENING FIT DNA EVERY 3 1998 YEARS COLON CANCER SCREENING SIGMOIDOSCOPY EVERY 1998 5 YEARS COLONOSCOPY 1998 Colorectal Cancer Screening 1998 Zoster Recombinant Vaccine (SHINGRIX) (1 1998 of 2) Medicare Wellness Visit 2013 PNEUMOCOCCAL VACCINES 65+ (1 of 1 - 2013 PPSV23) INFLUENZA VACCINE (#1) 2019 02/02/2014, 01/07/2013 documented as of this encounter Implants Implanted Type Area Area Attendant Device Shelf Model / Identifier Expiration Serial / Date Lot Palacos R+G Bone Cement With Gent CEMENT Right: Knee Biomet 10/17/2020 [id number] / Implanted: Qty: 1 on 03/30/2017 by Rudy Carrion MD at [facility] 8 [id number] / [id number] Primary Tibial Modular Tray KNEE Right: Knee Biomet 10/06/2021 [id number] / Implanted: Qty: 1 on 03/30/2017 by Rudy Carrion MD at [facility] 3 [id number] / [id number] Series-A Standard Patella KNEE Right: Knee Biomet [id number] / Implanted: Qty: 1 on 03/30/2017 by Rudy Carrion MD at [facility] 1 [id number] / [id number] Self Tappping Bone Screw KNEE Right: Knee Biomet 03/2027 [id number] / Implanted: Qty: 2 on 03/30/2017 by Rudy Carrion MD at [facility] 3 [id number] / [id number] Self Tapping Bone Screw KNEE Right: Knee Biomet 05/22 [id number] / Implanted: Qty: 1 on 03/30/2017 by Rudy Carrion MD at [facility] 3 [id number] / [id number] Self Tapping Bone Screw KNEE Right: Knee Biomet 08/19 [id number] / Implanted: Qty: 1 on 03/30/2017 by Rudy Carrion MD at [facility] 7 [id number] / [id number] Modular Finned Stem KNEE Right: Knee Biomet 03/11/20 27 [id number] / Implanted: Qty: 1 on 03/30/2017 by Rudy Carrion MD at [facility] 7 [id number] / [id number] Cr Femoral-Right KNEE Right: Knee Biomet 02/19/2027 [id number] / Implanted: Qty: 1 on 03/30/2017 by Rudy Carrion MD at [facility] 2 [id number] / [id number] Cr Tibial Bearing KNEE Right: Knee Biomet 01/25/2022 [id number] / Implanted: Qty: 1 on 03/30/2017 by Rudy Carrion MD at [facility] 4 [id number] / [id number] Adc [employer] Suture [place] 2.9 Mm - [id number] SHOULDER Right: B iomet 07/15/2022 [id number] / Implanted: Qty: 1 on 02/10/2018 by Ronaldo Chavira MD at [facility] Shoulder P [id number] / [id number] Adc [employer] Suture [place] 2.9 Mm - [id number] SHOULDER Right: B iomet 03/03/2022 [id number] / Implanted: Qty: 1 on 02/10/2018 by Ronaldo Chavira MD at [facility] Shoulder P [id number] / [id number] documented as of this encounter Results Not on filedocumented in this encounter Insurance Payer Benefit Plan / Subscriber ID Effective Phone Address T ype Group Dates [facility] [id number] 2020-Pres Me zapata [facility] - MEDICARE ent HMO MANAGED MEDICARE ADVANTAGE documented as of this encounter
--- OUTSIDE RECORDS SUMMARY | 2020-04-07 04:36 | XMS REPORT | Summary of Care ---
:1950 Author Organization [facility] Address [address] [place] [address] Care Team Providers Name Role Phone Bebeto Scales Primary Care Provider Reason for Visit Reason Comments REFERRAL Encounter Details Date Type Department Care Team Description 03/27/2020 Case Management [facility] Cardiothoracic Neal King V, REFERRAL Surgery-[facility] [address] [place] [address], [address] [place] [phone] Allergies No Known Allergiesdocumented as of this [...] Signs Not on filedocumented in this encounter Progress Notes Effie King ACN - 03/27/2020 4:37 PM CSTReferral from Insurance scanned into EPIC under the "Insurance Correspondence" tab. Effie Christine CASE PACKER [phone] signed by Effie King ACNP at 03/27/2020 4:38 PM CSTdocumented in this encounter Plan of Treatment Date Type Specialty Care Team Description 03/28/2020 Office Visit Thoracic Surgery Winston Puckett MD [address] [phone] Health Maintenance Due Date Last Done [...] of this encounter Implants Implanted Type Area Pulverizer Device Shelf Model / Identifier Expiration Serial / Date Lot Palacos R+G Bone Cement With Gent CEMENT Right: Knee Biomet 10/17/2020 [id number] / Implanted: Qty: 1 on 03/30/2017 by Rudy Carrion MD at [facility] 8 [id number] / [id number] Primary Tibial Modular Tray KNEE Right: Knee Biomet 10/06/2021 [id number] / Implanted: Qty: 1 on 03/30/2017 by Rudy Carrion MD at [facility] 3 [id number] / [id number] Series-A Standard Patella KNEE Right: Knee Biomet [id number] / Implanted: Qty: 1 on 03/30/2017 by Rudy Carrion MD at [facility] 1 [id number] / [id number] Self Tappping Bone Screw KNEE Right: Knee Biomet 03/2027 [id number] / Implanted: Qty: 2 on 03/30/2017 by Rudy Carrion MD at [facility] 3 [id number] / [id number] Self Tapping Bone Screw KNEE Right: Knee Biomet 05/22 [id number] / Implanted: Qty: 1 on 03/30/2017 by Rudy Carrion MD at [facility] 3 [id number] / [id number] Self Tapping Bone Screw KNEE Right: Knee Biomet 08/19 [id number] / Implanted: Qty: 1 on 03/30/2017 by Rudy Carrion MD at [facility] 7 [id number] / [id number] Modular Finned Stem KNEE Right: Knee Biomet 03/11/20 27 [id number] / Implanted: Qty: 1 on 03/30/2017 by Rudy Carrion MD at [facility] 7 [id number] / [id number] Cr Femoral-Right KNEE Right: Knee Biomet 02/19/2027 [id number] / Implanted: Qty: 1 on 03/30/2017 by Rudy Carrion MD at [facility] 2 [id number] / [id number] Cr Tibial Bearing KNEE Right: Knee Biomet 01/25/2022 [id number] / Implanted: Qty: 1 on 03/30/2017 by Rudy Carrion MD at [facility] 4 [id number] / [id number] Adc J[employer]ger[employer] Suture [place] 2.9 Mm - [id number] SHOULDER Right: B iomet 07/15/2022 [id number] / Implanted: Qty: 1 on 02/10/2018 by Ronaldo Chavira MD at [facility] Shoulder P [id number] / [id number] Adc [employer]ger[employer] Suture [place] 2.9 Mm - [id number] SHOULDER Right: B iomet 03/03/2022 [id number] / Implanted: Qty: 1 on 02/10/2018 by Ronaldo Chavira MD at [facility] Shoulder P [id number] / [id number] documented as of this encounter Results Not on filedocumented in this encounter Insurance Payer Benefit Plan / Subscriber ID Effective Phone Address T ype Group Dates [place] [facility] MEDIC[place] [id number] 2017-03/27 M irvin Adv HEALTHCARE - COMPLETE /2019 O MANAGED MEDICARE [employer] [id number] 2020-Pres Me zapata [employer] [facility] - MEDICARE ent HMO MANAGED MEDICARE ADVANTAGE documented as of this encounter
--- OUTSIDE RECORDS SUMMARY | 2020-04-07 04:37 | XMS REPORT | Summary of Care ---
:1950 Author Organization [facility] Address [address] [place] [address] Care Team Providers Name Role Phone Bebeto Scales Primary Care Provider Reason for Referral (Routine) Status Reason Specialty Diagnoses / Procedures Referred By C ontact Referred To Contact Open Diagnoses Rib pain on right side Effie King V, Procedures PHYSICAL THERAPY TREATMENT [address] [address] Phone: Reason for Visit Reason Comments REFERRAL Encounter Details Date Type Department Care Team Description 04/04/2020 Case Management [facility] Cardiothoracic Neal King V, [facility] [address] [place] [address] [facility], [address] [place] [phone] [phone] Allergies No Known Allergiesdocumented as of this encounter (statuses as of 04/04/2020) Medications Medication Sig Dispensed Refills Start Date [...] as of this encounter (statuses as of 04/04/2020) Active Problems Problem Noted Date Post-op pain 02/10/2018 Pain 07/15/2017 Total knee replacement status 03/30/2017 documented as of this encounter (statuses as of 04/04/2020) Social History Tobacco Use Types Packs/Day Years Used Date Never Smoker Smokeless Tobacco: Never Used Alcohol Use Drinks/Week oz/Week Comments No Sex Assigned at Date Recorded Not on file COVID-19 Exposure Response Date Recorded In the last month, have you been in contact with No / Unsure 03/30/2020 1:58 PM 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 documented as of this encounter Last Filed Vital Signs Not on filedocumented in this encounter Plan of Treatment Date Type Specialty Care Team Description 04/06/2020 Telemedicine Visit Thoracic Surgery Rylan Puckett MD [address] [place] [phone] Name Type Priority Associated Diagnoses Order S chedule PHYSICAL THERAPY PROCEDURES Routine Rib pain on right side O rdered: 04/04/2020 TREATMENT Health Maintenance Due Date Last Done Comments [...] of this encounter Implants Implanted Type Area Precision Machine Operator Device Shelf Model / Identifier Expiration Serial / Date Lot Palacos R+G Bone Cement With Gent CEMENT Right: Knee Biomet 10/17/2020 [id number] / Implanted: Qty: 1 on 03/30/2017 by Rudy Carrion MD at [facility] 8 [id number] / [id number] Primary Tibial Modular Tray KNEE Right: Knee Biomet 10/06/2021 [id number] / Implanted: Qty: 1 on 03/30/2017 by Rudy Carrion MD at [facility] 3 [id number] / [id number] Series-A Standard Patella KNEE Right: Knee Biomet [id number] / Implanted: Qty: 1 on 03/30/2017 by Rudy Carrion MD at [facility] 1 [id number] / [id number] Self Tappping Bone Screw KNEE Right: Knee Biomet 03/2027 [id number] / Implanted: Qty: 2 on 03/30/2017 by Rudy Carrion MD at [facility] 3 [id number] / [id number] Self Tapping Bone Screw KNEE Right: Knee Biomet 05/22 [id number] / Implanted: Qty: 1 on 03/30/2017 by Rudy Carrion MD at [facility] 3 [id number] / [id number] Self Tapping Bone Screw KNEE Right: Knee Biomet 08/19 [id number] / Implanted: Qty: 1 on 03/30/2017 by Rudy Carrion MD at [facility] 7 [id number] / [id number] Modular Finned Stem KNEE Right: Knee Biomet 03/11/20 27 [id number] / Implanted: Qty: 1 on 03/30/2017 by Rudy Carrion MD at [facility] 7 [id number] / [id number] Cr Femoral-Right KNEE Right: Knee Biomet 02/19/2027 [id number] / Implanted: Qty: 1 on 03/30/2017 by Rudy Carrion MD at [facility] 2 [id number] / [id number] Cr Tibial Bearing KNEE Right: Knee Biomet 01/25/2022 [id number] / Implanted: Qty: 1 on 03/30/2017 by Rudy Carrion MD at [facility] 4 [id number] / [id number] Adc Juggerknot Suture [place] 2.9 Mm - [id number] SHOULDER Right: B iomet 07/15/2022 [id number] / Implanted: Qty: 1 on 02/10/2018 by Ronaldo Chavira MD at [facility] Shoulder P [id number] / [id number] Adc J[employer]gerk[employer] Suture [place] 2.9 Mm - [id number] SHOULDER Right: B iomet 03/03/2022 [id number] / Implanted: Qty: 1 on 02/10/2018 by Ronaldo Chavira MD at [facility] Shoulder P [id number] / [id number] documented as of this encounter Results Not on filedocumented in this encounter Visit Diagnoses Diagnosis Rib pain on right side - Primary Chest pain, unspecified documented in this encounter Insurance Payer Benefit Plan / Subscriber ID Effective Phone Address T e Group [facility] [id number] 2020-Pres Me jodi Valiente [facility] - MEDICARE ent HMO MANAGED MEDICARE ADVANTAGE documented as of this encounter
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
--- OUTSIDE RECORDS SUMMARY | 2020-04-07 04:37 | XMS REPORT | Summary of Care ---
:1950 Author Organization [facility] Address [address] [place] [id number] Care Team Providers Name Role Phone Bebeto Scales Primary Care Provider Reason for Referral MRI/CAT Scan (STAT) Status Reason Specialty Diagnoses / Referred By Referred To Procedures Contact Contact Closed Diagnostic Diagnoses Rib pain on right side RIB PAIN Catrett, Effie Radiology Procedures CT THORAX WO CONTRAST CHG CT SCAN,THORAX,W/O CONTRAST V, ACNP [address] [place] [address] Reason for Visit MRI/CAT Scan (STAT) Status Reason Specialty Diagnoses / Referred By Referred To Procedures Contact Contact Closed Diagnostic Diagnoses Rib pain on right side RIB PAIN Catrett, Effie Radiology Procedures CT THORAX WO CONTRAST CHG CT SCAN,THORAX,W/O CONTRAST V, ACNP [address] [place] [address] Encounter Details Date Type Department Care Team Description 03/30/2020 Hospital Encounter [facility] Catrett, Elois e V, Arrived Dale Computed ACNP Tomography [address] [place] [address] [place] [address] [phone] Allergies No Known Allergiesdocumented as of this encounter (statuses as of 03/31/2020) Medications Medication Sig Dispensed Refills Start Date [...] as of this encounter (statuses as of 03/31/2020) Active Problems Problem Noted Date Post-op pain 02/10/2018 Pain 07/15/2017 Total knee replacement status 03/30/2017 documented as of this encounter (statuses as of 03/31/2020) Social History Tobacco Use Types Packs/Day Years Used Date Never Smoker Smokeless Tobacco: Never Used Alcohol Use Drinks/Week oz/Week Comments No Sex Assigned at Date Recorded Not on file COVID-19 Exposure Response Date Recorded In the last month, have you been in contact with No / Unsure 03/30/2020 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 documented as of this encounter Last Filed Vital Signs Not on filedocumented in this encounter Plan of Treatment Date Type Specialty Care Team Description 04/06/2020 Telemedicine Visit Thoracic Surgery Rylan Puckett MD [address] [place] [address] [phone] Health Maintenance Due Date Last Done [...] of this encounter Implants Implanted Type Area Continuous Conveyor Screen Drier Device Shelf Model / Identifier Expiration Serial / Date Lot Palacos R+G Bone Cement With Gent CEMENT Right: Knee Biomet 10/17/2020 [id number] / Implanted: Qty: 1 on 03/30/2017 by Rudy Carrion MD at [facility] 8 [id number] / [id number] Primary Tibial Modular Tray KNEE Right: Knee Biomet 10/06/2021 [id number] / Implanted: Qty: 1 on 03/30/2017 by Rudy Carrion MD at [facility] [id number] / [id number] Series-A Standard Patella KNEE Right: Knee Biomet [id number] / Implanted: Qty: 1 on 03/30/2017 by Rudy Carrion MD at [facility] 1 [id number] / [id number] Self Tappping Bone Screw KNEE Right: Knee Biomet 03/2027 [id number] / Implanted: Qty: 2 on 03/30/2017 by Rudy Carrion MD at [facility] 3 [id number] / [id number] Self Tapping Bone Screw KNEE Right: Knee Biomet 05/22 [id number] / Implanted: Qty: 1 on 03/30/2017 by Rudy Carrion MD at [facility] 3 [id number] / [id number] Self Tapping Bone Screw KNEE Right: Knee Biomet 08/19 [id number] / Implanted: Qty: 1 on 03/30/2017 by Rudy Carrion MD at [facility] 7 [id number] / [id number] Modular Finned Stem KNEE Right: Knee Biomet 03/11/20 27 [id number] / Implanted: Qty: 1 on 03/30/2017 by Rudy Carrion MD at [facility] 7 [id number] / [id number] Cr Femoral-Right KNEE Right: Knee Biomet 02/19/2027 [id number] / Implanted: Qty: 1 on 03/30/2017 by Rudy Carrion MD at [facility] 2 [id number] / [id number] Cr Tibial Bearing KNEE Right: Knee Biomet 01/25/2022 [id number] / Implanted: Qty: 1 on 03/30/2017 by Rudy Carrion MD at [facility] 4 [id number] / [id number] Adc Juggerknot Suture [place] 2.9 Mm - [id number] SHOULDER Right: B iomet 07/15/2022 [id number] / Implanted: Qty: 1 on 02/10/2018 by Ronaldo Chavira MD at [facility] Shoulder P [id number] / [id number] Adc Juggerknot Suture [place] 2.9 Mm - [id number] SHOULDER Right: B iomet 03/03/2022 [id number] / Implanted: Qty: 1 on 02/10/2018 by Ronaldo Chavira MD at [facility] Shoulder P [id number] / [id number] documented as of this encounter Procedures Procedure Name Priority Date/Time Associated Comments Diagnosis CT THORAX WO STAT 03/30/2020 2:20 PM Rib pain on right Res ults for this CONTRAST WET MACHINE TENDER side procedure are i n the results section. NOTICE OF PRIVACY Routine 03/30/2020 1:58 PM PRACTICES WET MACHINE TENDER CONSENT/REFUSAL FOR Routine 03/30/2020 1:58 PM DIAGNOSIS AND WET MACHINE TENDER TREATMENT ASSIGNMENT OF Routine 03/30/2020 1:58 PM BENEFITS WET MACHINE TENDER documented in this encounter Results CT THORAX WO CONTRAST (03/30/2020 2:20 PM WET MACHINE TENDER) Specimen Addenda Addendum by Roverto Viera MD [...] Results Inft User - 2019 3:02 PM WET MACHINE TENDER CT SCAN OF THE CHEST WITHOUT CONTRAST [...] Diagnoses Diagnosis Rib pain on right side Chest pain, unspecified documented in this encounter Insurance Payer Benefit Plan / Subscriber ID Effective Phone Address T ype Group Dates [facility] [id number] 2020-Pres Md jodi [facility] - MEDICARE ent O MANAGED MEDICARE ADVANTAGE documented as of this encounter
[2020-04-07 05:40] LABS: Basophils % 0.7 % (0-1.3); Hematocrit 45.5 % (39.6-49.0); Lymphocytes % 32.7 % (15.3-44.8); MPV 8.4 fL (7.6-11.3); RBC Red Blood Cell Count 5.28 M/uL (4.33-5.43)
[2020-04-07 05:55] LABS: Albumin 4.2 g/dL (3.4-5.0); Bilirubin Direct 0.1 mg/dL (0-0.2); Bilirubin Total 0.5 mg/dL (0.2-1.0); Potassium 4.2 mmol/L (3.5-5.1); Protein, Total 7.3 g/dL (6.4-8.2)
[2020-04-07 06:03] LABS: Urine Blood NEGATIVE (NEG); Urine Glucose NEGATIVE (NEG); Urine Protein NEGATIVE (NEG); Urine Specific Gravity >1.030 (1.005-1.030); Urine pH 5.5 (5.0-7.0)
--- NOTE | 2020-04-07 06:38 | ER ---
Nurse's Notes [facility] Name: Thiago Selby Age: 69 yrs Sex: Male : 1950 Arrival Date: 04/07/2020 Time: 04:36 Bed 20 Private MD: Diagnosis: Flank Pain Presentation: 04/07 04:45 Chief complaint: Patient states: back pain that started July, was seen here 2 weeks wh ago and was discharged. Coronavirus screen: Client denies travel out of the [place] in the last 14 days. At this time, the client does not indicate any symptoms associated with coronavirus-19. Ebola Screen: Patient negative for fever greater than or equal to 101.5 degrees Fahrenheit, and additional compatible Ebola Virus Disease symptoms Patient denies exposure to infectious person. Initial Sepsis Screen: Does the patient meet any 2 criteria? No. Patient's initial sepsis screen is negative. Does the patient have a suspected source of infection? No. Patient's initial sepsis screen is negative. Risk Assessment: Do you want to hurt yourself or someone else? Patient reports no desire to harm self or others. Onset of symptoms was April 07, 2020. 04:45 Method Of Arrival: Ambulatory 04:45 Acuity: NOE 4 Historical: - Allergies: 04:47 Flonase; - Home Meds: 04:47 atorvastatin 20 mg Oral tab 1 tab once daily [Active]; gabapentin 300 mg Oral cap [Active]; lisinopril 5 mg Oral tab 1 tab once daily [Active]; metformin 500 mg Oral tab 1 tab [Active]; - PMHx: 04:47 Diabetes - NIDDM; Hypertension; - Immunization history:: Adult Immunizations not up to date. - Social history:: Smoking status: Patient/guardian denies using. Screenin:46 Abuse screen: Denies threats or abuse. Denies injuries from another. Nutritional screening: No deficits noted. Tuberculosis screening: No symptoms or risk factors identified. Fall Risk None identified. Assessment: 04:48 General: Appears in no apparent distress. uncomfortable, Behavior is cooperative, wh appropriate for age. Pain: Complains of pain in back Pain does not radiate. Pain currently is 9 out of 10 on a pain scale. Neuro: Level of Consciousness is awake, alert, obeys commands, Oriented to person, place, time, situation, Appropriate for age. Cardiovascular: Capillary refill < 3 seconds. Respiratory: Airway is patent Respiratory effort is even, unlabored, Respiratory pattern is regular, symmetrical. GI: Abdomen is flat, non-distended. : No signs and/or symptoms were reported regarding the genitourinary system. EENT: No signs and/or symptoms were reported regarding the EENT system. Derm: Skin is intact, is healthy with good turgor. Musculoskeletal: Circulation, motion, and sensation intact. 06:20 Reassessment: Patient appears in no apparent distress at this time. No changes from previously documented assessment. Patient and/or family updated on plan of care and expected duration. Pain level reassessed. Patient is alert, oriented x 3, equal unlabored respirations, skin warm/dry/pink. Vital Signs: 04:53 BP 155 / 82; Pulse 67; Resp 18; Temp 98; Pulse Ox 100% ; Weight 127.01 kg; Height 5 ft. wh 10 in. (177.80 cm); Pain 9/10; 06:30 BP 136 / 84; Pulse 64; Resp 18; Pulse Ox 95% on R/A; 04:53 Body Mass Index 40.18 (127.01 kg, 177.80 cm) ED Course: 04:36 Patient arrived in ED. ag3 04:39 Agus Ugalde MD is Attending Physician. 7 04:44 Moy Valdivia is Primary Nurse. 04:46 Triage completed. 04:47 Patient has correct armband on for positive identification. Bed in low position. Call light in reach. Side rails up X 1. Pulse ox on. NIBP on. 04:48 Arm band placed on right wrist. 05:05 Inserted saline lock: 20 gauge in right antecubital area, using aseptic technique. Blood collected. 06:07 CT Stone Protocol In Process Unspecified. EDMS 06:48 No provider procedures requiring assistance completed. IV discontinued, intact, bleeding controlled, No redness/swelling at site. Administered Medications: No medications were administered Outcome: 06:37 Discharge ordered by . 7 06:48 Discharged to home ambulatory. 06:48 Condition: stable 06:48 Discharge instructions given to patient, Instructed on discharge instructions, follow up and referral plans. POC Demonstrated understanding of instructions, follow-up care, POC 06:48 Patient left the ED. Signatures: Dispatcher [employer] EDMoy Preciado Patti Ca3 Agus Ugalde MD MD mh7 Corrections: (The following items were deleted from the chart) 04:53 04:47 Home Meds: Aspirin Oral; [facility] 04:53 04:47 Home Meds: hydroxyzine HCl 25 mg Oral tab; [facility] 04:53 04:47 Home Meds: tramadol 50 mg Oral tab; [facility]
--- NOTE | 2020-04-07 06:38 | EDPHYS ---
Physician Documentation [facility] Name: Thiago Selby Age: 69 yrs Sex: Male : 1950 Arrival Date: 04/07/2020 Time: 04:36 Bed 20 Private MD: ED Physician Agus Ugalde HPI: 04/07 05:32 This 69 yrs old Male presents to ER via Ambulatory with complaints of Back mh7 Pain. 05:32 The patient presents with pain that is acute, with no known mechanism of injury, that mh7 is chronic, with no known mechanism of injury. The symptoms are located in the low back. Onset: The symptoms/episode began/occurred 6 month(s) ago, and became worse 2 day(s) ago. The pain does not radiate. Associated signs and symptoms: Pertinent negatives: abdominal pain, chest pain, constipation, dysuria, fever, headache, hematuria, incontinence, nausea, numbness, tingling, urinary retention, vomiting, weakness. The problem was sustained from unknown cause. Modifying factors: The patient symptoms are alleviated by nothing, has not taken pain medication, the patient symptoms are aggravated by movement. Severity of symptoms: At their worst the symptoms were moderate, 2 day(s) ago, in the emergency department the symptoms are unchanged. The patient has experienced similar episodes in the past, multiple times. Historical: - Allergies: 04:47 Flonase; wh - Home Meds: 04:47 atorvastatin 20 mg Oral tab 1 tab once daily [Active]; gabapentin 300 mg Oral cap [Active]; lisinopril 5 mg Oral tab 1 tab once daily [Active]; metformin 500 mg Oral tab 1 tab [Active]; - PMHx: 04:47 Diabetes - NIDDM; Hypertension; wh - Immunization history:: Adult Immunizations not up to date. - Social history:: Smoking status: Patient/guardian denies using. ROS: 05:32 Constitutional: Negative for fever, chills, and weight loss, Eyes: Negative for injury, mh7 pain, redness, and discharge, ENT: Negative for injury, pain, and discharge, Neck: Negative for injury, pain, and swelling, Cardiovascular: Negative for chest pain, palpitations, and edema, Respiratory: Negative for shortness of breath, cough, wheezing, and pleuritic chest pain, Abdomen/GI: Negative for abdominal pain, nausea, vomiting, diarrhea, and constipation, : Negative for injury, bleeding, discharge, and swelling, MS/Extremity: Negative for injury and deformity, Skin: Negative for injury, rash, and discoloration, Neuro: Negative for headache, weakness, numbness, tingling, and seizure, Psych: Negative for depression, anxiety, suicide ideation, homicidal ideation, and hallucinations, Allergy/Immunology: Negative for hives, rash, and allergies, Endocrine: Negative for neck swelling, polydipsia, polyuria, polyphagia, and marked weight changes, Hematologic/Lymphatic: Negative for swollen nodes, abnormal bleeding, and unusual bruising. Exam: 05:32 Head/Face: Normocephalic, atraumatic. Eyes: Pupils equal round and reactive to light, mh7 extra-ocular motions intact. Lids and lashes normal. Conjunctiva and sclera are non-icteric and not injected. Cornea within normal limits. Periorbital areas with no swelling, redness, or edema. Neck: Trachea midline, no thyromegaly or masses palpated, and no cervical lymphadenopathy. Supple, full range of motion without nuchal rigidity, or vertebral point tenderness. No Meningismus. Chest/axilla: Normal chest wall appearance and motion. Nontender with no deformity. No lesions are appreciated. Cardiovascular: Regular rate and rhythm with a normal S1 and S2. No gallops, murmurs, or rubs. Normal PMI, no JVD. No pulse deficits. Respiratory: Lungs have equal breath sounds bilaterally, clear to auscultation and percussion. No rales, rhonchi or wheezes noted. No increased work of breathing, no retractions or nasal flaring. Abdomen/GI: Soft, non-tender, with normal bowel sounds. No distension or tympany. No guarding or rebound. No evidence of tenderness throughout. Skin: Warm, dry with normal turgor. Normal color with no rashes, no lesions, and no evidence of cellulitis. MS/ Extremity: Pulses equal, no cyanosis. Neurovascular intact. Full, normal range of motion. Neuro: Awake and alert, GCS 15, oriented to person, place, time, and situation. Cranial nerves II-XII grossly intact. Motor strength 5/5 in all extremities. Sensory grossly intact. Cerebellar exam normal. Normal gait. Psych: Awake, alert, with orientation to person, place and time. Behavior, mood, and affect are within normal limits. 05:32 Constitutional: The patient appears in no acute distress, alert, awake, uncomfortable. Vital Signs: 04:53 BP 155 / 82; Pulse 67; Resp 18; Temp 98; Pulse Ox 100% ; Weight 127.01 kg; Height 5 ft. wh 10 in. (177.80 cm); Pain 9/10; 06:30 BP 136 / 84; Pulse 64; Resp 18; Pulse Ox 95% on R/A; wh 04:53 Body Mass Index 40.18 (127.01 kg, 177.80 cm) wh MDM: 06:34 Differential diagnosis: chronic back pain, Pyelonephritis Ureterolithiasis UTI, Flank mh7 Pain. Data reviewed: vital signs, nurses notes, old medical records, lab test result(s), CBC, electrolytes, urinalysis, radiologic studies, CT scan. Data interpreted: Pulse oximetry: on room air is 100 %. Interpretation: normal. Counseling: I had a detailed discussion with the patient and/or guardian regarding: the historical points, exam findings, and any diagnostic results supporting the discharge/admit diagnosis, the presence of at least one elevated blood pressure reading (>120/80) during this emergency department visit, lab results, radiology results, the need for outpatient follow up, to return to the emergency department if symptoms worsen or persist or if there are any questions or concerns that arise at home. Response to treatment: the patient's symptoms have markedly improved after treatment. 06:34 Refusal of service: The patient/guardian displays adequate decision making capability [facility] and despite a detailed discussion of alternatives, benefits, risks, and consequences refuses: Medications. 06:37 Patient medically screened. [facility] 04/07 05:15 Order name: CBC with Diff; Complete Time: 05:49 [facility] 04/07 05:15 Order name: Basic Metabolic Panel; Complete Time: 06:05 [facility] 04/07 05:15 Order name: LFT's; Complete Time: 06:05 [facility] 04/07 05:15 Order name: Urine Dipstick-Ancillary (obtain specimen); Complete Time: 05:58 [facility] 04/07 05:17 Order name: CT Stone Protocol [facility] 04/07 05:59 Order name: Urine Dipstick--Ancillary (enter results); Complete Time: 06:05 tt3 Administered Medications: No medications were administered Disposition: 04/07/20 06:37 Discharged to Home. Impression: Flank Pain. - Condition is Stable. - Discharge Instructions: Flank Pain, [id number]. - Medication Reconciliation Form, Thank You Letter, Antibiotic Education, Prescription Opioid Use form. - Follow up: Private Physician; When: 1 - 2 days; Reason: Worsening of condition, Recheck today's complaints, Continuance of care, Re-evaluation by your physician. - Problem is an ongoing problem. - Symptoms have improved. Signatures: Dispatcher [employer] EDMS Moy Valdivia Agus Ugalde MD MD mh7 Corrections: (The following items were deleted from the chart) 04:53 04:47 Home Meds: Aspirin Oral; [facility] 04:53 04:47 Home Meds: hydroxyzine HCl 25 mg Oral tab; [facility] 04:53 04:47 Home Meds: tramadol 50 mg Oral tab; [facility] 06:48 06:37 04/07/2020 06:37 Discharged to Home. Impression: Flank Pain. Condition is Stable. Forms are Medication Reconciliation Form, Thank You Letter, Antibiotic Education, Prescription Opioid Use. Follow up: Private Physician; When: 1 - 2 days; Reason: Worsening of condition, Recheck today's complaints, Continuance of care, Re-evaluation by your physician. Problem is an ongoing problem. Symptoms have improved. mh7
--- NOTE | 2020-04-08 17:34 | RAD REPORT ---
EXAM DESCRIPTION: CT - Stone Protocol - 04/07/2020 7:01 am CLINICAL HISTORY: The patient is 69 years old and is Male; FLANK PAIN TECHNIQUE: Axial computed tomography images of the abdomen and pelvis without intravenous contrast. Sagittal and coronal reformatted images were created and reviewed. This CT exam was performed usi ng one or more of the following dose reduction techniques: automated exposure control, adjustment o f the mA and/or kV according to patient size, and/or use of iterative reconstruction technique. COMPARISON: CT abdomen and pelvis July 04, 2018. FINDINGS: Lung bases: Unremarkable. No mass. No consolidation. Heart: Cardiomegaly. ABDOMEN: Liver: Unremarkable. Gallbladder and bile ducts: Cholecystectomy without biliary dilatation. Pancreas: Unremarkable. No ductal dilation. Spleen: Unremarkable. No splenomegaly. Adrenals: Unremarkable. No mass. Kidneys and ureters: No nephrolithiasis, hydronephrosis or ureter stone. Mild perinephric strandi ng, nonspecific. Bilateral renal parapelvic cysts, largest measuring 3.2 cm on the left. Stomach and bowel: Colonic diverticulosis. No bowel dilatation or obstruction. No bowel wall thickening. Stomach is unremarkable. PELVIS: Appendix: The visualized appendix is normal. No pericecal inflammation to suggest acute appendici tis. Bladder: Bladder is nearly empty. Bladder wall thickening may be secondary to cystitis or artifac t of incomplete distention. No stones. Reproductive: Mildly enlarged prostate gland. ABDOMEN and PELVIS: Intraperitoneal space: Unremarkable. No free air. No significant fluid collection. Bones/joints: Left total hip arthroplasty hardware. No dislocation. Degenerative changes in the r ight hip. Multilevel degenerative changes in the spine. No acute fracture. Soft tissues: Unremarkable. Vasculature: Unremarkable. No abdominal aortic aneurysm. Lymph nodes: No pathologically enlarged lymph nodes. IMPRESSION: 1. No nephrolithiasis, hydronephrosis or ureter stone. Mild perinephric stranding, non specific. 2. Cholecystectomy without biliary dilatation. 3. Colonic diverticulosis. 4. Bladder is nearly empty. Bladder wall thickening may be secondary to cystitis or artifact of inc omplete distention. 5. Additional non-emergent findings as above. Electronically signed by: Maida August MD 04/07/2020 6:15 AM ENVIRONMENTAL PROTECTION OFFICER Due to temporary technical issues with the PACS/Fluency reporting system, reports are being signed by the in house radiologists without review as a courtesy to insure prompt reporting. The interpreting radiologist is fully responsible for the content of the report.
[2020-04-09 21:47] VITALS: TEMP 98
[2020-04-09 21:48] VITALS: BP 136/84; O2SAT 95
== END 2020-04-07 06:48 | disposition home or self-care (01) ==
LOC: ER 04:31
DX: R10.9 Unspecified abdominal pain (principal); I10 Essential (primary) hypertension; E11.9 Type 2 diabetes mellitus without complications
CPT/HCPCS: 36415; 74176; 76377; 80048; 80076; 81003; 85025; 99284

== ENCOUNTER 2022-03-25 22:58 | Emergency (ER) | payer OTHER ==
--- OUTSIDE RECORDS SUMMARY | 2022-03-25 23:01 | XMS REPORT | Continuity of Care Document ---
:[address] [facility] t Address [address] [place] [address] Care Team Providers Name Role Phone Bebeto Scales Primary Care Physician Yu Paredes MD Attending Clinician Elvis Bishop MD Attending Clinician ELVIS BISHOP Attending Clinician Unavailable DONOVAN GONZALEZ Attending Clinician Unavailable Donovan Gonzalez MD Attending Clinician Doctor Unassigned, [place] Attending Clinician Unavailable Winston Willis MD Attending Clinician WINSTON WILLIS Attending Clinician Unavailable Sarina Esquivel Attending Clinician SARINA MORILLO Attending Clinician Unavailable Payers Payer Name Policy Type Policy Number Effective Date Expiration Date S ource Problems Condition Condition Condition Status Onset Resolution Last Treating Co mments Source Name Details Category Date Date Treatment Clinician Date 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 00:00: Hosp gayla region region 00 l with with neurogenic neurogenic claudicati claudicati on on History of History of Disease Active 2020-04 M ethodi left hip left hip 2-16 st replacemen replacemen 00:00: Ho spita t t 00 l History of History of Disease Active 2020-04 M ethodi total total 2-16 st right knee right knee 00:00: Ho spita replacemen replacemen 00 l t (TKR) t (TKR) Post-op Post-op Disease Active 2017-04 Univers pain pain 0-24 ity of 00:00: [place] 00 Medical Branch Pain Pain Disease Active Univers 3-28 ity of 00:00: [place] 00 [facility] Total knee Total knee Disease Active 2016-04 U nivers replacemen replacemen 2-11 it y of t status t status 00:00: [place] [facility] Myalgia Myalgia Disease Active Methodi 6-16 st 00:00: Hospita 00 l 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 00:00: Ho spita itis of itis of 00 l 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 16 st brain brain 00:00: Hospita injury) injury) 00 l Allergies, Adverse Reactions, Alerts Allergy Allergy Status Severity Reaction(s) Onset Inactive Treating Comm ents Source Name Type Date Date Clinician NO KNOWN Drug Active Univers ALLERGIE Class ity of S [facility] Social History Social Habit Start Date Stop Date Quantity Comments Source Exposure to Not sure [facility] SARS-CoV-2 [facility] (event) [place] Tobacco use and 2020-12-18 2020-12-18 Never used Universit y of exposure 00:00:00 00:00:00 [facility] Alcohol intake 2020-12-18 2020-12-18 Current University 00:00:00 00:00:00 non-drinker of [facility] alcohol Branch (finding) Sex Assigned At [birth year] [facility] 00:00:00 00:00:00 Smoking Status Start Date Stop Date Source Never smoker [facility] Medications Ordered Filled Start Stop Current Ordering Indication Dosage Frequency Signature Comments Components Source Medication Medication Date Date Medication? Clinician (SIG) Name Name ascorbic 2020-04 Yes 1{tbl} QD Take 1 Metho di acid 2-[address] (VITAMIN C 14:15: mouth Hospit a ORAL) 02 daily. l dronabinoL 2020-04- No One or two Methodi (MARINOL) 5 2-16 05-06 po bid prn s t MG capsule 00:00: 05:59 for pain Ho spita 00 :00 l OneTouch 2020-04 Yes USE [facility] Ultra Test 04-[address] strip test 00:00: TO TEST Hosp gayla strips 00 BLOOD l GLUCOSE ONCE DAILY. gabapentin Yes 600mg QD Take 600 Me thodi (NEURONTIN) 9-[address] 300 mg 11:01: mouth Hospita capsule 54 nightly. l MELOXICAM Yes QD Take by Metho di ORAL 9-[address] 11:01: daily. Hospita 54 l gabapentin 2020- No 600mg Take 600 U nivers 300 mg 7-23 07-23 mg by ity of capsule 16:37: 00:00 mouth at [place] [address] :00 bedtime. Medical Branch gabapentin 2020- No 600mg Take 600 U nivers 300 mg 7-23 07-23 mg by ity of capsule 16:37: 00:00 mouth at [place] 47 :00 bedtime. Medical Branch gabapentin 2020- No 600mg Take 600 U nivers 300 mg 7-23 07-23 mg by ity of capsule 16:37: 00:00 mouth at [place] [address] :00 bedtime. Medical Branch meloxicam 2020- No 7.5mg Take 7.5 Un morro 7.5 mg 7-23 07-23 mg by ity of tablet 16:37: 00:00 mouth [place] 23 :00 daily. Medical Branch metformin 2020- No Take by [facility] ers HCl 7-23 07-23 mouth. ity of (METFORMIN 16:37: 00:00 [place] ORAL) 23 :00 Medical Branch meloxicam 2020- No 7.5mg Take 7.5 Un morro 7.5 mg 7-23 07-23 mg by ity of tablet 16:37: 00:00 mouth [place] 23 :00 daily. Medical Branch metformin 2020- No Take by [facility] ers HCl 7-23 07-23 mouth. ity of (METFORMIN 16:37: 00:00 [place] ORAL) 23 :00 Medical Branch meloxicam 2020- No 7.5mg Take 7.5 Un morro 7.5 mg 7-23 07-23 mg by ity of tablet 16:37: 00:00 mouth [place] 23 :00 daily. Medical Branch metformin 0 2020- No Take by Univ ers HCl 7- 07-23 mouth. ity of (METFORMIN 16:37: 00:00 [place] ORAL) 23 :00 Medical Branch metFORMIN Yes 500mg Take 500 Met hodi (GLUCOPHAGE 6-[address] ) 500 mg 00:00: mouth. Hospita tablet 00 l atorvastati Yes 20mg Take 20 mg Univers n 20 mg 6-30 by mouth ity of tablet 00:00: daily. [place] [facility] Branch glipiZIDE Yes TAKE ONE Univ ers XL 5 mg 24 6-30 (1) ity of hr tablet 00:00: TABLET(S) [place] as 00 BY MOUTH Medical ONCE A DAY Branch WITH FOOD. metFORMIN Yes 500mg Take 500 Uni vers 500 mg 6-30 mg by ity of tablet 00:00: mouth 2 [place] (two) Medical times Branch daily. atorvastati Yes 20mg Take 20 mg Univers n 20 mg 6-30 by mouth ity of tablet 00:00: daily. [place] Medical Branch glipiZIDE Yes TAKE ONE Univ ers XL 5 mg 24 6-30 (1) ity of hr tablet 00:00: TABLET(S) [place] 00 BY MOUTH Medical ONCE A DAY Branch WITH FOOD. metFORMIN Yes 500mg Take 500 Uni vers 500 mg 6-30 mg by ity of tablet 00:00: mouth 2 [place] (two) Medical times [place] daily. atorvastati Yes 20mg Take 20 mg Univers n 20 mg 6-30 by mouth ity of tablet 00:00: daily. [place] Medical Branch glipiZIDE Yes TAKE ONE Univ ers XL 5 mg 24 6-30 (1) ity of hr tablet 00:00: TABLET(S) [place] 00 BY MOUTH Medical ONCE A DAY Branch WITH FOOD. metFORMIN Yes 500mg Take 500 Uni vers 500 mg 6-30 mg by ity of tablet 00:00: mouth 2 [place] (two) Medical times Branch daily. atorvastati Yes 20mg Take 20 mg Univers n 20 mg 6-30 by mouth ity of tablet 00:00: daily. [place] Medical Branch glipiZIDE 2021-0 Yes TAKE ONE Univ ers XL 5 mg 24 6-30 (1) ity of hr tablet 00:00: TABLET(S) [place] 00 BY MOUTH Medical ONCE A DAY Branch WITH FOOD. metFORMIN Yes 500mg Take 500 Uni vers 500 mg 6-30 mg by ity of tablet 00:00: mouth 2 (two) Medical times Branch daily. atorvastati Yes 20mg Take 20 mg Univers n 20 mg 6-30 by mouth ity of tablet 00:00: daily. Medical Branch glipiZIDE Yes TAKE ONE Univ ers XL 5 mg 24 6-30 (1) ity of hr tablet 00:00: TABLET(S) [place] 00 BY MOUTH Medical ONCE A DAY Branch WITH FOOD. metFORMIN Yes 500mg Take 500 Uni vers 500 mg 6-30 mg by ity of tablet 00:00: mouth 2 (two) Medical times Branch daily. atorvastati Yes 20mg Take 20 mg Univers n 20 mg 6-30 by mouth ity of tablet 00:00: daily. Medical Branch glipiZIDE Yes TAKE ONE Univ ers XL 5 mg 24 6-30 (1) ity of hr tablet 00:00: TABLET(S) [place] 00 BY MOUTH Medical ONCE A DAY Branch WITH FOOD. metFORMIN Yes 500mg Take 500 Uni vers 500 mg 6-30 mg by ity of tablet 00:00: mouth 2 (two) Medical times Branch daily. lisinopriL 2020- No 2.5mg Take 2.5 U nivers 2.5 mg 6-30 07-23 mg by ity of tablet 00:00: 00:00 mouth [place] 00 :00 daily. Medical Branch lisinopriL 2020- No 2.5mg Take 2.5 U nivers 2.5 mg 6-30 07-23 mg by ity of tablet 00:00: 00:00 mouth [place] 00 :00 daily. Medical Branch lisinopriL 2020- No 2.5mg Take 2.5 U nivers 2.5 mg 6-30 07-23 mg by ity of tablet 00:00: 00:00 mouth [place] 00 :00 daily. Medical Branch lisinopriL 2021-0 Yes TAKE ONE Uni vers 5 mg tablet 3-16 TABLET BY ity of 00:00: MOUTH AT [place] BEDTIME Medical FOR HEART/ Branch BLOOD PRESSURE lisinopriL Yes TAKE ONE Uni vers 5 mg tablet 3-16 TABLET BY ity of 00:00: MOUTH AT [place] BEDTIME Medical FOR HEART/ Branch BLOOD PRESSURE lisinopriL 0 Yes TAKE ONE Uni vers 5 mg tablet 3-16 TABLET BY ity of 00:00: MOUTH AT [place] BEDTIME Medical FOR HEART/ Branch BLOOD PRESSURE lisinopriL Yes TAKE ONE Uni vers 5 mg tablet 3-16 TABLET BY ity of 00:00: MOUTH AT [place] BEDTIME Medical FOR HEART/ Branch BLOOD PRESSURE lisinopriL Yes TAKE ONE Uni vers 5 mg tablet 3-16 TABLET BY ity of 00:00: MOUTH AT [place] BEDTIME Medical FOR HEART/ Branch BLOOD PRESSURE lisinopriL Yes TAKE ONE Uni vers 5 mg tablet 3-16 TABLET BY ity of 00:00: MOUTH AT [place] BEDTIME Medical FOR HEART/ Branch BLOOD PRESSURE metformin 2019-04 Yes Take by Unive rs HCl 2-09 mouth. ity of (METFORMIN 20:13: [place] ORAL) 22 Medical Branch metformin 2019-04 Yes Take by Unive rs HCl 2-09 mouth. ity of (METFORMIN 20:13: [place] ORAL) 22 Medical Branch metformin 2019-04 Yes Take by Unive rs HCl 2-09 mouth. ity of (METFORMIN 20:13: [place] ORAL) 22 Medical Branch metformin 2019-04 Yes Take by Unive rs HCl 2-09 mouth. ity of (METFORMIN 20:13: [place] ORAL) 22 Medical Branch metformin 2019-04 Yes Take by Unive rs HCl 2-09 mouth. ity of (METFORMIN 20:13: [place] ORAL) 22 Medical Branch metformin 2019- Yes Take by Unive rs HCl 2-09 mouth. ity of (METFORMIN 20:13: [place] ORAL) 22 Medical Branch metformin 2019- Yes Take by Unive rs HCl 2-09 mouth. ity of (METFORMIN 20:13: [place] ORAL) 22 Medical Branch metformin 2019-04 Yes Take by Unive rs HCl 2-09 mouth. ity of (METFORMIN 20:13: [place] ORAL) 22 Medical Branch metformin 2019-04 Yes Take by Unive rs HCl 2-09 mouth. ity of (METFORMIN 20:13: [place] ORAL) 22 Medical Branch metformin 2020-1 Yes Take by Unive rs HCl 2-09 mouth. ity of (METFORMIN 20:13: [place] ORAL) 22 Medical Branch gabapentin 2020-0 Yes TAKE 1 Unive rs 300 mg 9-01 CAPSULE BY ity of capsule 00:00: MOUTH [place] 00 THREE Medical TIMES A Branch DAY IMMEDIATEL Y REPORT MOOD AND BEHAVIOR CHANGES acyclovir 2020-0 Yes TAKE 2 Univer s 200 mg 9-01 CAPSULES ity of capsule 00:00: BY MOUTH [place] 00 THREE Medical TIMES A Branch DAY NEEDED FOR VIRAL INFECTION gabapentin 2020-0 Yes TAKE 1 Unive rs 300 mg 9-01 CAPSULE BY ity of capsule 00:00: MOUTH [place] 00 THREE Medical TIMES A Branch DAY IMMEDIATEL Y REPORT MOOD AND BEHAVIOR CHANGES acyclovir 2020-0 Yes TAKE 2 Univer s 200 mg 9-01 CAPSULES ity of capsule 00:00: BY MOUTH [place] 00 THREE Medical TIMES A Branch DAY NEEDED FOR VIRAL INFECTION gabapentin 2020-0 Yes TAKE 1 Unive rs 300 mg 9-01 CAPSULE BY ity of capsule 00:00: MOUTH [place] 00 THREE Medical TIMES A Branch DAY IMMEDIATEL Y REPORT MOOD AND BEHAVIOR CHANGES acyclovir 2020-0 Yes TAKE 2 Univer s 200 mg 9-01 CAPSULES ity of capsule 00:00: BY MOUTH [place] 00 THREE Medical TIMES A Branch DAY NEEDED FOR VIRAL INFECTION gabapentin 2020-0 Yes TAKE 1 Unive rs 300 mg 9-01 CAPSULE BY ity of capsule 00:00: MOUTH [place] 00 THREE Medical TIMES A Branch DAY IMMEDIATEL Y REPORT MOOD AND BEHAVIOR CHANGES acyclovir 2020-0 Yes TAKE 2 Method i (ZOVIRAX) 9-[address] 200 MG 00:00: BY MOUTH Hospita capsule 00 THREE l TIMES A DAY NEEDED FOR VIRAL INFECTION acyclovir 2020-0 Yes TAKE 2 Univer s 200 mg 9-01 CAPSULES ity of capsule 00:00: BY MOUTH [place] 00 THREE Medical TIMES A Branch DAY NEEDED FOR VIRAL INFECTION gabapentin 2020-0 Yes TAKE 1 Unive rs 300 mg 9-01 CAPSULE BY ity of capsule 00:00: MOUTH [place] 00 THREE Medical TIMES A Branch DAY IMMEDIATEL Y REPORT MOOD AND BEHAVIOR CHANGES acyclovir 2020-0 Yes TAKE 2 Univer s 200 mg 9-01 CAPSULES ity of capsule 00:00: BY MOUTH [place] 00 THREE Medical TIMES A Branch DAY NEEDED FOR VIRAL INFECTION gabapentin 2019-0 Yes TAKE 1 Unive rs 300 mg 9- CAPSULE BY ity of capsule 00:00: MOUTH THREE Medical TIMES A Branch DAY IMMEDIATEL Y REPORT MOOD AND BEHAVIOR CHANGES acyclovir 2019-0 Yes TAKE 2 Univer s 200 mg 9- CAPSULES ity of capsule 00:00: BY MOUTH THREE Medical TIMES A Branch DAY NEEDED FOR VIRAL INFECTION thiamine 2019-0 Yes DAILY Methodi 100 MG 7-22 st tablet 00:00: Hospita 00 l atorvastati 2019-0 Yes AT BEDTIME Methodi n (LIPITOR) 7-16 st 20 mg 00:00: Hospita tablet 00 l lisinopriL 2019-0 Yes TAKE ONE Uni vers 5 mg tablet 1-22 TABLET BY ity of 00:00: MOUTH AT [place] [address] BEDTIME Medical FOR HEART/ Branch BLOOD PRESSURE lisinopriL 2020-0 Yes TAKE ONE Uni vers 5 mg tablet 1-22 TABLET BY ity of 00:00: MOUTH AT [place] [address] BEDTIME Medical FOR HEART/ Branch BLOOD PRESSURE lisinopriL 2020-0 Yes TAKE ONE Uni vers 5 mg tablet 1-22 TABLET BY ity of 00:00: MOUTH AT [place] [address] BEDTIME Medical FOR HEART/ Branch BLOOD PRESSURE lisinopriL 2020-0 Yes TAKE ONE Uni vers 5 mg tablet 1-22 TABLET BY ity of 00:00: MOUTH AT [place] [address] BEDTIME Medical FOR HEART/ Branch BLOOD PRESSURE lisinopriL 2020-0 Yes TAKE ONE Uni vers 5 mg tablet 1-22 TABLET BY ity of 00:00: MOUTH AT [place] [address] BEDTIME Medical FOR HEART/ Branch BLOOD PRESSURE lisinopriL 2020-0 Yes TAKE ONE Uni vers 5 mg tablet 1-22 TABLET BY ity of 00:00: MOUTH AT [place] [address] BEDTIME Medical FOR HEART/ Branch BLOOD PRESSURE lisinopriL 2020-0 Yes TAKE ONE Uni vers 5 mg tablet 1-22 TABLET BY ity of 00:00: MOUTH AT [place] [address] BEDTIME Medical FOR HEART/ Branch BLOOD PRESSURE lisinopriL 2020-0 Yes TAKE ONE Uni vers 5 mg tablet 1-22 TABLET BY ity of 00:00: MOUTH AT [place] [address] BEDTIME Medical FOR HEART/ Branch BLOOD PRESSURE lisinopriL 2020-0 Yes TAKE ONE Uni vers 5 mg tablet 1-22 TABLET BY ity of 00:00: MOUTH AT [place] 00 BEDTIME Medical FOR HEART/ Branch BLOOD PRESSURE lisinopriL Yes TAKE ONE Uni vers 5 mg tablet -22 TABLET BY ity of 00:00: MOUTH AT [place] 00 BEDTIME Medical FOR HEART/ Branch BLOOD PRESSURE lisinopriL 2020- No TAKE ONE Un morro 5 mg tablet 05-11 TABLET BY it y of 00:00: 00:00 MOUTH AT [place] 00 :00 BEDTIME Medical FOR HEART/ Branch BLOOD PRESSURE lisinopriL 2020- No TAKE ONE Un morro 5 mg tablet 05-11 TABLET BY it y of 00:00: 00:00 MOUTH AT [place] 00 :00 BEDTIME Medical FOR HEART/ Branch BLOOD PRESSURE lisinopriL 2020- No TAKE ONE Un morro 5 mg tablet 05-11 TABLET BY it y of 00:00: 00:00 MOUTH AT [place] 00 :00 BEDTIME Medical FOR HEART/ Branch BLOOD PRESSURE gabapentin 2017-04 Yes 600mg Take 600 Un morro 300 mg 0-25 mg by ity of capsule 18:58: mouth at [place] [address] bedtime. Medical Branch meloxicam 2017-04 Yes 7.5mg Take 7.5 Uni vers 7.5 mg 0-25 mg by ity of tablet 18:58: mouth [place] [address] daily. Medical Branch gabapentin 2017-04 Yes 600mg Take 600 Un morro 300 mg 0-25 mg by ity of capsule 18:58: mouth at [place] [address] bedtime. Medical Branch meloxicam 2017-04 Yes 7.5mg Take 7.5 Uni vers 7.5 mg 0-25 mg by ity of tablet 18:58: mouth [place] daily. Medical Branch gabapentin 2017-04 Yes 600mg Take 600 Un morro 300 mg 0-25 mg by ity of capsule 18:58: mouth at [place] [address] bedtime. Medical Branch meloxicam 2017-04 Yes 7.5mg Take 7.5 Uni vers 7.5 mg 0-25 mg by ity of tablet 18:58: mouth [place] 39 daily. Medical Branch gabapentin 2017-04 Yes 600mg Take 600 Un morro 300 mg 0-25 mg by ity of capsule 18:58: mouth at [place] [address] bedtime. Medical Branch meloxicam 2017-04 Yes 7.5mg Take 7.5 Uni vers 7.5 mg 0-25 mg by ity of tablet 18:58: mouth [place] 39 daily. Medical Branch gabapentin 2018 Yes 600mg Take 600 Un morro 300 mg 0-25 mg by ity of capsule 18:58: mouth at [place] 39 bedtime. Medical Branch meloxicam 2018 Yes 7.5mg Take 7.5 Uni vers 7.5 mg 0-25 mg by ity of tablet 18:58: mouth [place] 39 daily. Medical Branch gabapentin 2017-04 Yes 600mg Take 600 Un morro 300 mg 0-25 mg by ity of capsule 18:58: mouth at [place] 39 bedtime. Medical Branch meloxicam 2017-04 Yes 7.5mg Take 7.5 Uni vers 7.5 mg 0-25 mg by ity of tablet 18:58: mouth [place] 39 daily. Medical Branch gabapentin 2017-04 Yes 600mg Take 600 Un morro 300 mg 0-25 mg by ity of capsule 18:58: mouth at [place] 39 bedtime. Medical Branch meloxicam 2017-04 Yes 7.5mg Take 7.5 Uni vers 7.5 mg 0-25 mg by ity of tablet 18:58: mouth [place] 39 daily. Medical Branch gabapentin 2017-04 Yes 600mg Take 600 Un morro 300 mg 0-25 mg by ity of capsule 18:58: mouth at [place] 39 bedtime. Medical Branch meloxicam 2017-04 Yes 7.5mg Take 7.5 Uni vers 7.5 mg 0-25 mg by ity of tablet 18:58: mouth [place] 39 daily. Medical Branch gabapentin 2017-04 Yes 600mg Take 600 Un morro 300 mg 0-25 mg by ity of capsule 18:58: mouth at [place] 39 bedtime. Medical Branch meloxicam 2017-04 Yes 7.5mg Take 7.5 Uni vers 7.5 mg 0-25 mg by ity of tablet 18:58: mouth [place] 39 daily. Medical Branch gabapentin 2017- Yes 600mg Take 600 Un morro 300 mg 0-25 mg by ity of capsule 18:58: mouth at [place] 39 bedtime. Medical Branch meloxicam 2018- Yes 7.5mg Take 7.5 Uni vers 7.5 mg 0-25 mg by ity of tablet 18:58: mouth [place] 39 daily. Medical Branch gabapentin 2017- Yes 600mg Take 600 Un morro 300 mg 0-25 mg by ity of capsule 18:58: mouth at [place] 39 bedtime. Medical Branch meloxicam 2017-04 Yes 7.5mg Take 7.5 Uni vers 7.5 mg 0-25 mg by ity of tablet 18:58: mouth [place] 39 daily. Medical Branch gabapentin 2017-04 Yes 600mg Take 600 Un morro 300 mg 0-25 mg by ity of capsule 18:58: mouth at [place] 39 bedtime. Medical Branch meloxicam 2017-04 Yes 7.5mg Take 7.5 Uni vers 7.5 mg 0-25 mg by ity of tablet 18:58: mouth [place] 39 daily. Medical Branch Vital Signs Vital Name Observation Time Observation Value Comments Source Systolic blood 2020-12-11 18:59:00 174 mm[Hg] Univer sity of [facility] Diastolic blood 2020-12-11 18:59:00 83 mm[facility]Hg[facility] Heart rate 2020-12-11 18:59:00 86 /min Universi ty [facility] Body temperature 2020-12-11 18:59:00 36.17 [place] [facility] ersity of [facility] Body height 2020-12-11 18:59:00 177.8 cm Universi ty [facility] Body weight 2020-12-11 18:59:00 133.221 kg Universi ty [facility] BMI 2020-12-11 18:59:00 42.14 kg/m2 Universi ty [facility] Systolic blood 2020-11-08 19:02:00 152 mm[Hg] Univer sity of [facility] Diastolic blood 2020-11-08 19:02:00 83 mm[Hg] Unive rsity of [facility] Heart rate 2020-11-08 19:02:00 81 /min Universi ty [facility] Body temperature 2020-11-08 19:02:00 36.17 [place] Univ ersity of [facility] Body height 2020-11-08 19:02:00 177.8 cm Universi ty [facility] Body weight 2020-11-08 19:02:00 132.541 kg Universi ty [facility] BMI 2020-11-08 19:02:00 41.93 kg/m2 Universi ty [facility] Systolic blood 2020-03-28 20:13:00 147 mm[Hg] Univer sity of pressure [place] [facility] Diastolic blood 2020-03-28 20:13:00 71 mm[Hg] Unive rsity of pressure [place] [facility] Heart rate 2020-03-28 20:13:00 75 /min Universi ty of [place] [facility] Body temperature 2020-03-28 19:53:00 36.44 [place] Univ ersity of [place] [facility] Respiratory rate 2020-03-28 19:53:00 20 /min Univ ersity of [place] [facility] Body height 2020-03-28 19:53:00 172.7 cm Universi ty of [place] [facility] Body weight 2020-03-28 19:53:00 128.368 kg Universi ty of [place] [facility] BMI 2020-03-28 19:53:00 43.03 kg/m2 Universi ty of [place] [facility] Oxygen saturation in 2020-03-28 19:53:00 98 /min University of Arterial blood by [place] [employer] fel[employer] Pulse oximetry Branch Systolic blood 2020-03-28 20:13:00 147 mm[Hg] Univer sity of pressure [place] [facility] Diastolic blood 2020-03-28 20:13:00 71 mm[Hg] Unive rsity of pressure [place] [facility] Heart rate 2020-03-28 20:13:00 75 /min Universi ty of [place] [facility] Body temperature 2020-03-28 19:53:00 36.44 [place] Univ ersity of [place] [facility] Respiratory rate 2020-03-28 19:53:00 20 /min Univ ersity of [place] [facility] Body height 2020-03-28 19:53:00 172.7 cm Universi ty of [place] [facility] Body weight 2020-03-28 19:53:00 128.368 kg Universi ty of [place] [facility] BMI 2020-03-28 19:53:00 43.03 kg/m2 Universi ty of [place] [facility] Oxygen saturation in 2020-03-28 19:53:00 98 /min University of Arterial blood by [employer] felipe Pulse oximetry Branch Systolic blood 2021-04-04 20:17:00 158 mm[Hg] [facility] pressure Diastolic blood 2021-04-04 20:17:00 88 mm[Hg[facility] pressure Heart rate 2021-04-04 20:17:00 72 /min [facility] Hospital Procedures Procedure Date / Time Performed Performing Clinician Sourc e EXTERNAL PROVIDER 2020-06-20 06:01:00 Doctor Unassigned, No [facility] RECORDS Name [facility] CT THORAX WO CONTRAST 2020-03-30 20:20:00 Gretelthompson Sarina [facility] Medical [place] NOTICE OF PRIVACY 2020-03-30 19:58:45 Doctor Unassigned, No [facility] PRACTICES Name Medical [place] CONSENT/REFUSAL FOR 2020-03-30 19:58:27 [facility] Name Medical Branch TREATMENT ASSIGNMENT OF BENEFITS 2020-03-30 19:58:12 Doctor Unassigned, No [facility] Name Medical Branch REFERRAL- 2020-03-26 06:01:00 Doctor Unassigned, No [facility] REQUEST/RESPONSE Name [facility] Plan of Care Planned Activity Planned Date Details Comments Source Future Scheduled 2022-02-21 HEPATITIS B VACCINES [facility] Test 17:40:49 (1 of 3 - 3-dose series) [code = HEPATITIS B VACCINES (1 of 3 - 3-dose series)] Future Scheduled 2022-02-21 COVID-19 VACCINE (#1) [facility] Test 17:40:49 [code = COVID-19 VACCINE (#1)] Future Scheduled 2022-02-21 Hepatitis C screening [facility] Test 17:40:49 (procedure) [code = 400729657] Future Scheduled 2022-02-21 COLONOSCOPY SCREENING [facility] Test 17:40:49 [code = COLONOSCOPY SCREENING] Future Scheduled 2022-02-21 SHINGLES VACCINES (1 [facility] Test 17:40:49 of 2) [code = SHINGLES VACCINES (1 of 2)] Future Scheduled 2022-02-21 65+ [facility]OCOCC[address] [facility] Test 17:40:49 VACCINE (1 - PCV) [code = 65+ PNEUMOCOCCAL VACCINE (1 - PCV)] Future Scheduled 2022-02-21 INFLUENZA VACCINE [facility] Test 17:40:49 [code = INFLUENZA VACCINE] Encounters Start End Encounter Admission Attending Care Care Encounter Source Date/Time Date/Time Type Type Clinicians Facility Department ID 2021-04-04 2021-04-04 Office Yu Paredes [id number] Methodi 14:15:00 14:38:21 Visit John Paul [id number] 3.430.2.7 Hospit a .[id number] l .8 2021-04-04 2021-04-04 Travel 1.2.840.1 [id number] Methodi 00:00:00 00:00:[address] 3.430.2.7 0.2.7.3.698 Ho spita .[id number] 084.8 l .8 2021-04-04 2021-04-04 Outpatient PAREDESYU [facility] [id number] [place] 00:00:00 00:00:[address] 2020-12-11 2020-12-11 Office PASCUAL Bishop [id number] Univers 13:51:08 14:11:08 Visit Elvis [facility] 350.1.13.10 i ty of CL[place] [id number] [facility] 196 Branch 2020-12-11 2020-12-11 Outpatient R EDNA [facility] [id number] Univers 14:00:00 14:00:00 ELVIS pollard [facility] 2020-11-08 2020-11-08 Outpatient R DONOVAN GONZALEZ [facility] [id number] Univers 14:45:00 14:45:00 atul [facility] 2020-11-08 2020-11-08 Office Donovan Gonzalez [facility] [id number] Univers 13:44:02 13:59:02 Visit HEALTH 350.1.13.10 i ty of [place]2.[place] [id number] [facility] 185 Branch 2020-06-20 2020-06-20 Orders Doctor SONI [id number] Univers 00:00:00 00:00:00 Only Unassigned, WAYNE 350.1.13.10 ity of [place] [facility] 4.2.7.2.686 [place] [id number] [facility] 009 Branch 2020-06-12 2020-06-12 Telephone [facility] [id number] Univers 00:00:00 00:00:00 Winston C Crane 350.1.13.10 ity of [place] [id number] [phone] [address] 2020-04-23 2020-04-23 Telephone [facility] [id number] Univers 00:00:00 00:00:00 Winston C Crane [id number] ity [id number] [phone] [address] 2020-04-23 2020-04-23 Telephone [facility] [id number] 00:00:00 00:00:00 [place] C Crane [id number] [place] [id number] Professio [phone] [address] 2020-04-06 2020-04-06 Outpatient R [facility] [id number] [facility] 15:15:00 15:15:00 W[place]ON ity of [facility] 2020-04-04 2020-04-04 formerly [facility] 1.2.840.114 [id number] [facility] 00:00:00 00:00:00 Management Sarina Y HEALTH [id number] [id number] [phone] [address] 2020-04-04 2020-04-04 formerly [facility] 1.2.840.114 [id number] 00:00:00 00:00:00 Management Sarina Y HEALTH [id number] CLINICS [phone] [facility] 2020-03-30 2020-03-30 [facility] [id number] Univers 14:00:00 23:59:00 Encounter Sarina Crane [id number] [id number] [phone] [address] 2020-03-30 2020-03-30 Outpatient R YISEL [facility] [id number] Univers 00:00:00 00:00:00 SARINA ity of [facility] 2020-03-30 2020-03-30 Telephone [email or web address] 1.2.840.114 [id number] Univers 00:00:00 00:00:00 [place] De [id number] [id number] [phone] [address] 2020-03-28 2020-03-28 [facility] 1.2.840.114 [id number] [facility] 13:12:23 14:52:39 Visit Winston De [id number] [id number] [phone] [address] 2020-03-28 2020-03-28 [facility] 1.2.840.114 [id number] 13:12:23 14:52:39 Visit Winston De [id number] [place] [id number] Professio [phone] [address] 2020-03-28 2020-03-28 [facility] [id number] Univers 14:00:00 14:00:00 [place] ity [facility] 2020-03-27 2020-03-27 PASCUAL [place] 1.2.840.114 [id number] Univers 00:00:00 00:00:00 Management Sarina [employer] [facility] [id number] ity [id number] [phone] [address] 2020-03-26 2020-03-26 Orders Doctor SHAFER 1.2.840.114 [id number] Univers 00:00:00 00:00:00 Only Unassigned, WAYNE [id number] ity of [place] [facility] 4.2.7.2.686 [place] [phone] [facility] [address] Results Test Description Test Time Test Results Result Source Comments Comments CT THORAX WO 2020-03-20 Addendum by [facility] 1 Roverto Viera MD [facility] 21:01:36 on 03/30/2020 3:47 PM* Br anch * * * * * * * ADDENDUM: * * * * * * * *Ordering provider was notified of the below findings at the time ofaddendum.1. ?Subtle peripheral groundglass opacities concerning for atypicalinfection (including etiology such as Covid 19). Correlate clinically. 2. ?Solid 5 mm subpleural right upper lobe nodule. If high risk, consideroptional CT at 12 months to document stability. 3. ?Left upper renal pole fullness probably represents parapelvic cyst.Consider dedicated ultrasound further characterize and exclude possibilityof hydronephrosis. CT SCAN OF THE CHEST WITHOUT CONTRAST TECHNIQUE: Multidetector helical CT scan of the chest was performed withoutintravenous contrast. Coronal and sagittal reformats were also submittedfor review. CLINICAL INFORMATION: Evaluate posterior right rib pain. COMPARISON: 03/27/2017 FINDINGS:Lungs: ?Solid 5 mm subpleural right upper lobe nodule (8:22). Subtlescattered peripheral groundglass opacities throughout both lungs (mostprominent within the lung bases). Airways: Central airways are patent. Pleura: ?No pleural effusion or pneumothorax. Mediastinum: No mediastinal or hilar lymphadenopathy. Cardiovascular: ?Mild to moderate multivessel coronary calcifications mostprominent within the LAD distribution. Aortic valvular calcifications alsopresent as well. No pericardial effusion. Lower neck and chest wall: Within normal limits Upper abdomen: Partially visualized mild fullness of the left upper renalpole probably represents parapelvic cysts (favored) versus mildhydronephrosis. Status post prostatectomy. Scattered transverse colondiverticula without diverticulitis. Bones: No acute or suspicious osseous abnormality. [facility], Radiant Results Inft User - 03/30/2020 3:02 PM CSTCT SCAN OF THE CHEST WITHOUT CONTRASTTECHNIQUE: Multidetector helical CT scan of the chest was performed withoutintravenous contrast. Coronal and sagittal reformats were also submittedfor review.CLINICAL INFORMATION: Evaluate posterior right rib pain.COMPARISON: 03/27/2017FINDINGS:Lung s: Solid 5 mm subpleural right upper lobe nodule (8:22). Subtlescattered peripheral groundglass opacities throughout both lungs (mostprominent within the lung bases).Airways: Central airways are patent.Pleura: No pleural effusion or pneumothorax.Mediastin um: No mediastinal or hilar lymphadenopathy.Cardio vascular: Mild to moderate multivessel coronary calcifications mostprominent within the LAD distribution. Aortic valvular calcifications alsopresent as well. No pericardial effusion.Lower neck and chest wall: Within normal limitsUpper abdomen: Partially visualized mild fullness of the left upper renalpole probably represents parapelvic cysts (favored) versus mildhydronephrosis. Status post prostatectomy. Scattered transverse colondiverticula without diverticulitis.Bones: No acute or suspicious osseous abnormality.IMPRESSION 1. Subtle peripheral groundglass opacities concerning for atypicalinfection (including etiology such as Covid 19). Correlate clinically. 2. Solid 5 mm subpleural right upper lobe nodule. If high risk, consideroptional CT at 12 months to document stability.3. Left upper renal pole fullness probably represents parapelvic cyst.Consider dedicated ultrasound further characterize and exclude possibilityof hydronephrosis.
[2022-03-26] LABS: Absolute Lymphocytes (CBC) 1.9 K/uL (0.7-4.9); Hematocrit 43.5 % (39.6-49.0); Lymphocytes % 29.3 % (15.3-44.8); MCV 86.7 fL (80-100); MPV 8.1 fL (7.6-11.3); RBC Red Blood Cell Count 5.02 M/uL (4.33-5.43)
[2022-03-26 00:01] LABS: Protime INR 0.96
[2022-03-26 00:19] LABS: Albumin 4.2 g/dL (3.4-5.0); Bilirubin Direct 0.2 mg/dL (0-0.2); Bilirubin Total 0.8 mg/dL (0.2-1.0); Magnesium 2.1 mg/dL (1.8-2.4); Potassium 3.9 mmol/L (3.5-5.1); Protein, Total 7.5 g/dL (6.4-8.2); Troponin High Sensitivity 13.9 pg/mL (<58.9)
[2022-03-26] MEDS ORDERED: ASPIRIN 81 MG CHEWABLE TABLET ONE (00:25)
[2022-03-26] MEDS ORDERED: NA CHLORIDE 0.9% 500 ML ONE (00:25)
[2022-03-26] MEDS ORDERED: HYDROCODONE/CHLORPHEN 5 ML/OSYR ONE (00:25)
[2022-03-26] MEDS ORDERED: AZITHROMYCIN 250 MG TAB ONE (00:28)
[2022-03-26 01:38] LABS: SARS-COV-2 RT PCR NEGATIVE (NEGATIVE)
[2022-03-26] MEDS ORDERED: CEFTRIAXONE 1000 MG/VIAL ONE (02:12)
[2022-03-26] MEDS ORDERED: METHYLPREDNISOLONE 125 MG INJ ONE (02:12)
[2022-03-26] MEDS ORDERED: LEVALBUTEROL 0.63 MG/3 ML NEB ONE (02:12)
[2022-03-26] MEDS ORDERED: predniSONE 20 MG TAB ONE (02:12)
[2022-03-26] MEDS ORDERED: FAMOTIDINE 20 MG/2 ML VIAL IV ONE (02:13)
--- NOTE | 2022-03-26 02:13 | ER ---
Nurse's Notes [facility] Name: Thiago Selby Age: 71 yrs Sex: Male : 1950 Arrival Date: 03/25/2022 Time: 23:02 Bed 4 Private MD: Diagnosis: Cough;Acute upper respiratory infection, unspecified-NSIP;Acute interstitial pneumonitis;Atelectasis Presentation: 03/25 23:20 Chief complaint: Patient states: "y chest is hurting from all the coughing. I have a em6 slight headache. I had co vid 2 years ago and ever since then I cant taste or smell. also pneumonia in 2020". Coronavirus screen: Client denies travel out of the [place] in the last 14 days. Ebola Screen: Patient negative for fever greater than or equal to 101.5 degrees Fahrenheit, and additional compatible Ebola Virus Disease symptoms. Initial Sepsis Screen: Does the patient meet any 2 criteria? No. Patient's initial sepsis screen is negative. Does the patient have a suspected source of infection? No. Patient's initial sepsis screen is negative. Risk Assessment: Do you want to hurt yourself or someone else? Patient reports no desire to harm self or others. Onset of symptoms was March 25, 2022. 23:20 Method Of Arrival: Ambulatory em6 23:20 Acuity: NOE 3 em6 Triage Assessment: 23:23 General: Appears in no apparent distress. Behavior is cooperative. Pain: Complains of em6 pain in head Pain does not radiate. Pain currently is 4 out of 10 on a pain scale. Cardiovascular: Patient's skin is warm and dry. Historical: - Allergies: 23:23 Flonase; em6 - Home Meds: 23:23 atorvastatin 20 mg Oral tab 1 tab once daily [Active]; gabapentin 300 mg Oral cap em6 [Active]; metformin 500 mg Oral tab 1 tab [Active]; lisinopril 5 mg Oral tab 1 tab once daily [Active]; - PMHx: 23:23 Diabetes - NIDDM; Hypertension; em6 - Immunization history:: Adult Immunizations not up to date. - Social history:: Smoking status: Patient denies any tobacco usage or history of. - Family history:: not pertinent. Screenin:22 Abuse screen: Denies threats or abuse. Nutritional screening: No deficits noted. em6 Tuberculosis screening: No symptoms or risk factors identified. 03/26 02:53 Fall Risk None identified. Assessment: 03/25 23:46 General: Appears in no apparent distress. comfortable, Behavior is calm, cooperative, kl appropriate for age. Pain: Complains of pain in chest and head Pain currently is 3 out of 10 on a pain scale. Neuro: No deficits noted. Cardiovascular: Heart tones S1 S2 Rhythm is sinus rhythm. Respiratory: Reports cough that is non-productive. GI: No deficits noted. No signs and/or symptoms were reported involving the gastrointestinal system. : No deficits noted. No signs and/or symptoms were reported regarding the genitourinary system. 03/26 00:45 Reassessment: Patient appears in no apparent distress at this time. Patient and/or kl family updated on plan of care and expected duration. Pain level reassessed. Patient is alert, oriented x 3, equal unlabored respirations, skin warm/dry/pink. 01:30 Reassessment: Patient appears in no apparent distress at this time. Patient and/or kl family updated on plan of care and expected duration. Pain level reassessed. Patient is alert, oriented x 3, equal unlabored respirations, skin warm/dry/pink. Patient states feeling better. Patient states symptoms have improved. 02:30 Reassessment: No changes from previously documented assessment. 02:54 Pain: Pain began suddenly. Vital Signs: 03/25 23:20 BP 146 / 85; Pulse 76; Resp 18; Temp 98.7; Pulse Ox 96% on R/A; Weight 127.01 kg; em6 Height 5 ft. 10 in. (177.80 cm); Pain 4/10; 23:47 BP 146 / 85; Pulse 82; Resp 18; Pulse Ox 94% ; kl 03/26 00:50 BP 151 / 87; Pulse 75; Resp 16; Pulse Ox 97% on R/A; kl 01:59 BP 153 / 89; Pulse 68; Resp 18; Pulse Ox 97% on R/A; kl 02:52 BP 149 / 84; Pulse 71; Resp 16; Pulse Ox 98% on R/A; kl 03/25 23:20 Body Mass Index 40.18 (127.01 kg, 177.80 cm) em6 ED Course: 03/25 23:02 Patient arrived in ED. bp1 23:15 Hector Zhang PA is PHCP. cp 23:15 Hector Grant MD is Attending Physician. cp 23:22 Triage completed. em6 23:23 Arm band placed on. em6 23:30 Inserted saline lock: 20 gauge in right antecubital area, using aseptic technique. kl Blood collected. 23:32 XRAY Chest (1 view) In Process Unspecified. EDMS 23:46 Basic Metabolic Panel Sent. kl 23:46 CBC with Diff Sent. kl 23:46 LFT's Sent. kl 23:46 Magnesium Sent. kl 23:46 NT PRO-BNP Sent. kl 23:46 PT-INR Sent. kl 23:46 Troponin HS Sent. kl 12 01:07 CT Chest For PE Angio In Process Unspecified. EDMS 01:38 Troponin HS: 130am Sent. kl 02:12 Gilberto Prasad MD is Referral Physician. ko 02:12 Escobar Hernandez MD is Referral Physician. ko 02:52 No provider procedures requiring assistance completed. IV discontinued, intact, kl bleeding controlled, No redness/swelling at site. Pressure dressing applied. Patient maintains SpO2 saturation greater than 95% on room air. 02:54 Client placed on continuous cardiac and pulse oximetry monitoring. NIBP monitoring kl applied. 02:54 Patient has correct armband on for positive identification. kl Administered Medications: 00:46 Drug: Tussionex Pennkinetic ER (chlorpheniramine-hydrocodone) Suspension 5 ml Route: PO;kl 01:38 Follow up: Response: No adverse reaction; Marked relief of symptoms kl 00:46 Drug: Zithromax (azithromycin) 500 mg Route: PO; kl 01:38 Follow up: Response: No adverse reaction kl 00:47 Drug: Aspirin Chewable Tablet 324 mg Route: PO; kl 01:38 Follow up: Response: No adverse reaction kl 00:47 Drug: NS 0.9% 500 ml Route: IV; Rate: bolus; Site: right antecubital; kl 01:38 Follow up: IV Status: Completed infusion; IV Intake: 500ml kl 02:15 Drug: Pepcid (famotidine) 20 mg Route: IVP; Site: right antecubital; kl 02:20 Drug: SOLU-Medrol (methylPrednisoLONE) 125 mg Route: IVP; Site: right antecubital; kl 02:20 Drug: predniSONE 40 mg Route: PO; kl 02:24 Drug: Xopenex (levalbuterol) 2.5 mg Route: Inhalation; kl 02:24 Drug: Rocephin (cefTRIAXone) 1 grams Route: IV; Rate: per protocol; Site: right kl antecubital; Medication: 02:54 VIS not applicable for this client. Intake: 01:38 IV: 500ml; Total: 500ml. Outcome: 02:12 Discharge ordered by . ko 02:53 Discharged to home ambulatory. 02:53 Condition: improved 02:53 Discharge instructions given to patient, Instructed on discharge instructions, follow up and referral plans. medication usage, Demonstrated understanding of instructions, follow-up care, medications, Prescriptions given X 4. 02:54 Patient left the ED. Signatures: Dispatcher [employer] EDMS Parul Graves, Hector Solis RN, MD MD cha Page, Corey, PA PA Frida Yarbrough Erika, RN RN em6
--- NOTE | 2022-03-26 02:14 | EDPHYS ---
Physician Documentation [facility] Name: Thiago Selby Age: 71 yrs Sex: Male : 1950 Arrival Date: 03/25/2022 Time: 23:02 Bed 4 Private MD: ED Physician Hector Grant HPI: 03/26 00:09 This 71 yrs old Male presents to ER via Ambulatory with complaints of Chest ko Pain > 30 y/o, Headache. 00:09 The patient or guardian reports chest pain that is located primarily in the anterior ko chest wall, bilaterally. Onset: 3 day(s) ago. The pain does not radiate. Associated signs and symptoms: Pertinent positives: cough. The chest pain is described as aching. Duration: The patient or guardian reports multiple episodes, that are intermittent. Modifying factors: The symptoms are alleviated by remaining still, the symptoms are aggravated by cough. Severity of pain: At its worst the pain was mild in the emergency department the pain is unchanged. The patient has experienced similar episodes in the past, a few times. Historical: - Allergies: 03/25 23:23 Flonase; em6 - Home Meds: 23:23 atorvastatin 20 mg Oral tab 1 tab once daily [Active]; gabapentin 300 mg Oral cap em6 [Active]; metformin 500 mg Oral tab 1 tab [Active]; lisinopril 5 mg Oral tab 1 tab once daily [Active]; - PMHx: 23:23 Diabetes - NIDDM; Hypertension; em6 - Immunization history:: Adult Immunizations not up to date. - Social history:: Smoking status: Patient denies any tobacco usage or history of. - Family history:: not pertinent. ROS: 03/26 00:09 Constitutional: Negative for fever, chills, and weight loss, Eyes: Negative for injury, ko pain, redness, and discharge, ENT: Negative for injury, pain, and discharge, Neck: Negative for injury, pain, and swelling, Cardiovascular: Negative for chest pain, palpitations, and edema, Abdomen/GI: Negative for abdominal pain, nausea, vomiting, diarrhea, and constipation, Back: Negative for injury and pain, : Negative for injury, bleeding, discharge, and swelling, MS/Extremity: Negative for injury and deformity, Skin: Negative for injury, rash, and discoloration, Neuro: Negative for headache, weakness, numbness, tingling, and seizure, Psych: Negative for depression, anxiety, suicide ideation, homicidal ideation, and hallucinations, Allergy/Immunology: Negative for hives, rash, and allergies, Endocrine: Negative for neck swelling, polydipsia, polyuria, polyphagia, and marked weight changes, Hematologic/Lymphatic: Negative for swollen nodes, abnormal bleeding, and unusual bruising. Respiratory: Positive for cough, shortness of breath, at rest. Exam: 00:09 Constitutional: This is a well developed, well nourished patient who is awake, alert, ko and in no acute distress. Head/Face: Normocephalic, atraumatic. Eyes: Pupils equal round and reactive to light, extra-ocular motions intact. Lids and lashes normal. Conjunctiva and sclera are non-icteric and not injected. Cornea within normal limits. Periorbital areas with no swelling, redness, or edema. ENT: Nares patent. No nasal discharge, no septal abnormalities noted. Tympanic membranes are normal and external auditory canals are clear. Oropharynx with no redness, swelling, or masses, exudates, or evidence of obstruction, uvula midline. Mucous membranes moist. Neck: Trachea midline, no thyromegaly or masses palpated, and no cervical lymphadenopathy. Supple, full range of motion without nuchal rigidity, or vertebral point tenderness. No Meningismus. Chest/axilla: Normal chest wall appearance and motion. Nontender with no deformity. No lesions are appreciated. Cardiovascular: Regular rate and rhythm with a normal S1 and S2. No gallops, murmurs, or rubs. Normal PMI, no JVD. No pulse deficits. Respiratory: Lungs have equal breath sounds bilaterally, clear to auscultation and percussion. No rales, rhonchi or wheezes noted. No increased work of breathing, no retractions or nasal flaring. Abdomen/GI: Soft, non-tender, with normal bowel sounds. No distension or tympany. No guarding or rebound. No evidence of tenderness throughout. Back: No spinal tenderness. No costovertebral tenderness. Full range of motion. Male : Normal genitalia with no discharge or lesions. Skin: Warm, dry with normal turgor. Normal color with no rashes, no lesions, and no evidence of cellulitis. MS/ Extremity: Pulses equal, no cyanosis. Neurovascular intact. Full, normal range of motion. Neuro: Awake and alert, GCS 15, oriented to person, place, time, and situation. Cranial nerves II-XII grossly intact. Motor strength 5/5 in all extremities. Sensory grossly intact. Cerebellar exam normal. Normal gait. Psych: Awake, alert, with orientation to person, place and time. Behavior, mood, and affect are within normal limits. 00:09 ECG was reviewed by the Attending Physician. Vital Signs: 03/25 23:20 BP 146 / 85; Pulse 76; Resp 18; Temp 98.7; Pulse Ox 96% on R/A; Weight 127.01 kg; em6 Height 5 ft. 10 in. (177.80 cm); Pain 4/10; 23:47 BP 146 / 85; Pulse 82; Resp 18; Pulse Ox 94% ; kl 03/26 00:50 BP 151 / 87; Pulse 75; Resp 16; Pulse Ox 97% on R/A; kl 01:59 BP 153 / 89; Pulse 68; Resp 18; Pulse Ox 97% on R/A; kl 02:52 BP 149 / 84; Pulse 71; Resp 16; Pulse Ox 98% on R/A; kl 03/25 23:20 Body Mass Index 40.18 (127.01 kg, 177.80 cm) em6 MDM: 03/25 23:16 Patient medically screened. cp 03/26 00:16 Differential diagnosis: abnormal EKG, acute myocardial infarction, acute pericarditis, ko anxiety, chest wall pain, cholecystitis, Cholelithiasis hiatal hernia, pancreatitis, pericarditis, pneumonia, pulmonary embolus, stable angina, unstable angina. HEART Score: History: Slightly Suspicious (0), ECG: Normal (0), Age: > or = 65 years (2), Risk Factors: > or = 3 Risk factors for atherosclerotic disease (2), [Hypertension] [DM] [+ Family HX] [Obesity] Troponin: < or = 1 x Normal Limit (0). The patient was given aspirin in the Emergency Department. The patient's deep vein thrombosis risk score was calculated as follows: Total Score: 0. This patient was found to be at low risk for a deep vein thrombosis by using the Well's assessment criteria. The patient's pulmonary embolism risk score was calculated as follows: Total Score: 0-2 points. This patient was found to be at low risk for a pulmonary embolism by using the Well's assessment criteria. MK Risk Score: 1 - Three or more CAD risk factors, [Family Hx], [HTN], [DM], TOTAL SCORE =. Data reviewed: vital signs, nurses notes, lab test result(s), EKG, radiologic studies, CT scan, plain films. Data interpreted: telemetry monitor: rate is 82 beats/min, rhythm is regular, Pulse oximetry: on room air is 94 %. Test interpretation: by ED physician or midlevel provider: ECG, plain radiologic studies. Counseling: I had a detailed discussion with the patient and/or guardian regarding: the historical points, exam findings, and any diagnostic results supporting the discharge/admit diagnosis, lab results, radiology results. 03/25 23:15 Order name: Basic Metabolic Panel; Complete Time: 00:20 03/25 23:15 Order name: CBC with Diff; Complete Time: 00:20 03/25 23:15 Order name: LFT's; Complete Time: 00:20 03/25 23:15 Order name: Magnesium; Complete Time: 00:20 03/25 23:15 Order name: NT PRO-BNP; Complete Time: 00:20 03/25 23:15 Order name: PT-INR; Complete Time: 00:20 03/25 23:15 Order name: Troponin HS; Complete Time: 00:20 03/25 23:15 Order name: XRAY Chest (1 view) 03/26 00:08 Order name: CT Chest For PE Angio [facility] 03/26 00:08 Order name: COVID-19/FLU A+B; Complete Time: 01:42 [facility] 03/26 00:15 Order name: Lipase; Complete Time: 00:20 [facility] 03/26 00:21 Order name: Troponin HS: 130am; Complete Time: 02:11 [facility] 03/26 01:47 Order name: INCENTIVE SPIROMETRY [facility] 03/25 23:15 Order name: EKG; Complete Time: 23:16 03/25 23:15 Order name: Cardiac monitoring; Complete Time: 23:46 03/25 23:15 Order name: EKG - Nurse/Tech; Complete Time: 23:46 03/25 23:15 Order name: IV Saline Lock; Complete Time: 23:46 03/25 23:15 Order name: Labs collected and sent; Complete Time: 23:46 cp 03/25 23:15 Order name: O2 Per Protocol; Complete Time: 23:46 cp 03/25 23:15 Order name: O2 Sat Monitoring; Complete Time: 23:46 cp EC:09 Rate is 70 beats/min. Rhythm is regular. QRS [place] is Normal. TN interval is normal. QRS ko interval is normal. QT interval is normal. No Q waves. T waves are Normal. No ST changes noted. Clinical impression: Normal ECG and No evidence of ischemia. Interpreted by me. Reviewed by me. Administered Medications: 00:46 Drug: Tussionex Pennkinetic ER (chlorpheniramine-hydrocodone) Suspension 5 ml Route: PO;kl 01:38 Follow up: Response: No adverse reaction; Marked relief of symptoms kl 00:46 Drug: Zithromax (azithromycin) 500 mg Route: PO; kl 01:38 Follow up: Response: No adverse reaction kl 00:47 Drug: Aspirin Chewable Tablet 324 mg Route: PO; kl 01:38 Follow up: Response: No adverse reaction kl 00:47 Drug: NS 0.9% 500 ml Route: IV; Rate: bolus; Site: right antecubital; kl 01:38 Follow up: IV Status: Completed infusion; IV Intake: 500ml kl 02:15 Drug: Pepcid (famotidine) 20 mg Route: IVP; Site: right antecubital; kl 02:20 Drug: SOLU-Medrol (methylPrednisoLONE) 125 mg Route: IVP; Site: right antecubital; kl 02:20 Drug: predniSONE 40 mg Route: PO; kl 02:24 Drug: Xopenex (levalbuterol) 2.5 mg Route: Inhalation; kl 02:24 Drug: Rocephin (cefTRIAXone) 1 grams Route: IV; Rate: per protocol; Site: right kl antecubital; Disposition Summary: 03/26/22 02:12 Discharge Ordered Location: Home ko Problem: new ko Symptoms: have improved ko Condition: Stable ko Diagnosis - Cough ko - Acute upper respiratory infection, unspecified - NSIP ko - Acute interstitial pneumonitis ko - Atelectasis ko Followup: ko - With: Private Physician - When: 2 - 3 days - Reason: Recheck today's complaints, Continuance of care, Re-evaluation by your physician Followup: ko - With: - When: 2 - 3 days - Reason: Recheck today's complaints, Re-evaluation by your physician Followup: ko - With: - When: 2 - 3 days - Reason: Recheck today's complaints, Continuance of care, Re-evaluation by your physician Discharge Instructions: - Discharge Summary Sheet ko - Upper Respiratory Infection, Adult ko - Cool Mist Vaporizer ko - Upper Respiratory Infection, Adult, [id number] ko - Cough, Adult, [id number] ko - How to Use an Incentive Spirometer [facility] - Aspirin and Your Heart [facility] - Cough, Adult [facility] Forms: - Medication Reconciliation Form [facility] - Thank You Letter [facility] - Antibiotic Education [facility] - Prescription Opioid Use [facility] Prescriptions: - Pepcid 20 mg Oral Tablet - take 1 tablet by ORAL route every 12 hours for 21 days; 42 tablet; Refills: 0, [facility] Product Selection Permitted - Guaifenesin AC 10-100 mg/5 mL Oral Liquid - take 10 milliliters by ORAL route every 6 hours As needed; 180 milliliter; [facility] Refills: 0, Product Selection Permitted - Zithromax 500 mg Oral Tablet - take 1 tablet by ORAL route once daily for 5 days; 5 tablet; Refills: 0, [facility] Product Selection Permitted - Prednisone 20 mg Oral Tablet - take 2 tablets by ORAL route once daily for 5 days; 10 tablet; Refills: 0, [facility] Product Selection Permitted - albuterol sulfate 90 mcg/actuation Inhalation HFA aerosol inhaler - inhale 2 puff by INHALATION route every 4-6 hours; 1 Pump; Refills: 0, Product [facility] Selection Permitted Signatures: Dispatcher [employer] Parul Luis RN RN kl Anderson, Corey, MD MD cha Page, Corey, PA PA cp Martinez, Erika, RN RN em6 Corrections: (The following items were deleted from the chart) 00:15 00:09 LIPASE+C.LAB.GARRETTZ ordered. ARIANNE ACUÑA
[2022-03-26 10:40] VITALS: TEMP 98.7
[2022-03-26 10:58] VITALS: BP 149/84; O2SAT 98
--- NOTE | 2022-03-26 13:17 | RAD REPORT ---
EXAM DESCRIPTION: RAD - Chest Single View - 03/25/2022 11:30 pm CLINICAL HISTORY: CHEST PAIN. COMPARISON: None. TECHNIQUE: Single view AP chest radiograph(s). FINDINGS: Mild perihilar interstitial thickening. No infiltrate identified. No pleural effusion. No pneumothorax. Mild cardiomegaly. No significant osseous abnormality. IMPRESSION: Mild perihilar interstitial thickening. No infiltrate identified. Mild cardiomegaly. Electronically signed by: Yasmine Carlson MD 03/25/2022 11:51 PM CONCRETE TECHNICIAN Due to temporary technical issues with the PACS/Fluency reporting system, reports are being signed by the in house radiologists without review as a courtesy to insure prompt reporting. The interpreting radiologist is fully responsible for the content of the report.
--- NOTE | 2022-03-26 13:28 | RAD REPORT ---
EXAM DESCRIPTION: CT - Chest For Pe Angio - 03/26/2022 7:15 am CLINICAL HISTORY: 71 years, Male, cp COMPARISON: None TECHNIQUE: Multiple transaxial tomograms of the chest were obtained from the lung apices through the lung bases utilizing 2 mm slice thickness at 2 mm interval reconstruction after the administration o f large bolus of IV contrast for complete opacification of the pulmonary arteries. Subsequent 3-D maximum intensity projection images were generated in the coronal and sagittal plane f or review. This exam was performed according to our departmental dose-optimization protocol, which includes auto mated exposure control, adjustment of the mA and/or kV according to patient size and/or use of iterat pili reconstruction technique. FINDINGS: The lungs parenchyma demonstrate minimal subpleural areas of densities suggesting the poss ibility of atelectatic changes and/or less likely the possibility of interlobular septal thickening c orresponding to minimal early interstitial lung disease such as NSIP could be of consideration. No ma sses, nodules and/or consolidations are identified. The trachea mainstem bronchus demonstrate to be normal. There is no significant pericardial or pleura l effusions. The thoracic aorta demonstrate to be unremarkable. The heart is normal in size. No evidence for right ventricular strain. There are minimal coronary artery calcifications. There is no significant mediastinal and/or hilar lymphadenopathy. The axillary regions demonstrate to be clear. Pulmonary arteries demonstrate to be normal, no intraluminal defect are seen that would suggest pulmo nary embolus. The bone windows demonstrate anterior spondylosis throughout the mid/lower thoracic spine. The visualized portions of the upper abdomen demonstrate to be unremarkable. IMPRESSION: No CT evidence of pulmonary embolus. Minimal subpleural areas of densities suggesting the possibility of atelectatic changes and/or less l ikely the possibility of interlobular septal thickening corresponding to minimal early interstitial s uch as NSIP could be of consideration. Electronically signed by: Durga Rouse MD 03/26/2022 1:28 AM [employer]IC Due to temporary technical issues with the PACS/Fluency reporting system, reports are being signed by the in house radiologists without review as a courtesy to insure prompt reporting. The interpreting radiologist is fully responsible for the content of the report.
== END 2022-03-26 02:54 | disposition home or self-care (01) ==
LOC: ER 22:58
DX: J84.114 Acute interstitial pneumonitis (principal); J98.11 Atelectasis; J06.9 Acute upper respiratory infection, unspecified; R07.89 Other chest pain; Z20.822 Contact with and (suspected) exposure to COVID-19; E11.9 Type 2 diabetes mellitus without complications; I10 Essential (primary) hypertension
CPT/HCPCS: 93005; 85025; 80048; 36415; 83735; 85610; 80076; 84484 ×2; 83690; 83880; 0240U; 71275; 71045; Q9967; J7512; Q0144; J7614; J7040; J2930

== ENCOUNTER 2022-11-26 09:28 | Emergency (ER) | payer MEDICARE, OTHER ==
--- OUTSIDE RECORDS SUMMARY | 2022-11-26 09:33 | XMS REPORT | Continuity of Care Document ---
:1950 Author Organization [facility] t Address [address] [place] [address] [address] [place] [address] Care Team Providers Name Role Phone Asked, No Pcp Primary Care Physician Unavailable Yu Paredes MD Attending Clinician Elvis Bishop MD Attending Clinician ELVIS BISHOP Attending Clinician Unavailable DONOVAN GONZALEZ Attending Clinician Unavailable Donovan Gonzalez MD Attending Clinician Doctor Unassigned, [place] Attending Clinician Unavailable Winston Willis MD Attending Clinician WINSTON WILLIS Attending Clinician Unavailable Sarina Esquivel Attending Clinician SARINA MORILLO Attending Clinician Unavailable Payers Payer Name Policy Type Policy Number Effective Date Expiration Date S ource Problems Condition Condition Condition Status Onset Resolution Last Treating Co mments Source Name Details Category Date Date Treatment Clinician Date History of History of Disease Active 2020-04 M ethodi total total 2-16 st right knee right knee 00:00: Ho spita replacemen replacemen 00 l t (TKR) t (TKR) 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 00:00: Hosp [facility] region region 00 l with with neurogenic neurogenic claudicati claudicati on on History of History of Disease Active 2020-04 M ethodi left hip left hip 2-16 st replacemen replacemen 00:00: Ho spita t t 00 l Post-op Post-op Disease Active 2017-04 Univers pain pain 0-24 ity of 00:00: [place] 00 Medical Branch Pain Pain Disease Active Univers 3-28 ity of 00:00: [place] 00 Medical Branch Total knee Total knee Disease Active 2016-04 U nivers replacemen replacemen 2-11 it y of t status t status 00:00: [place] 00 Medical Branch Myalgia Myalgia Disease Active Methodi [...] Active Univers ALLERGIE Class ity of S [facility] Social History Social Habit Start Date Stop Date Quantity Comments Source Exposure to Not sure [facility] SARS-CoV-2 (event) [facility] Gender identity [facility] Sexual orientation [facility] Tobacco use and 2020-12-18 2020-12-18 Never used Universit y of exposure 00:00:00 00:00:00 [facility] Alcohol intake 2020-12-18 2020-12-18 Current University of 00:00:00 00:00:00 non-drinker of [facility] alcohol [place] (finding) History of Social 2016-10-03 2016-10-[address] function 00:00:00 00:00:00 Hospital Sex Assigned At [birth year] [facility] 00:00:00 00:00:00 Medical Center Smoking Status Start Date Stop Date Source Never smoker [facility] Medications Ordered Filled Start Stop Current Ordering Indication Dosage Frequency Signature Comments Components Source Medication Medication Date Date Medication? Clinician (SIG) Name Name ascorbic 2020-04 Yes 1{tbl} QD Take 1 Metho di acid 2-[address] (VITAMIN C 14:15: mouth Hospit a ORAL) 02 daily. l ascorbic 2020-04 Yes 1{tbl} QD Take 1 Metho di acid 2-[address] (VITAMIN C 14:15: mouth Hospit a ORAL) 02 daily. l ascorbic 2020-04 Yes 1{tbl} QD Take 1 Metho di acid 2-[address] (VITAMIN C 14:15: mouth Hospit a ORAL) 02 daily. l dronabinoL 2020-04- No One or two Methodi (MARINOL) 5 2-16 -17 po bid prn s t MG capsule 00:00: 05:59 for pain Ho spita 00 :00 l OneTouch 2020-04 Yes USE [facility] Ultra Test 04-[address] strip test 00:00: TO TEST [facility]osp [facility] strips 00 BLOOD l GLUCOSE ONCE DAILY. OneTouch 2020-04 Yes USE [facility] Ultra Test 04-[address] strip test 00:00: TO TEST [facility]osp [facility] strips 00 BLOOD l GLUCOSE ONCE DAILY. OneTouch 2020-04 Yes USE Methodi Ultra Test 04-[address] strip test 00:00: TO TEST [facility]osp [facility] strips 00 BLOOD l GLUCOSE ONCE DAILY. gabapentin Yes 600mg QD Take 600 Me thodi (NEURONTIN) 9-[address] 300 mg 11:01: mouth Hospita capsule 54 nightly. l MELOXICAM 0 Yes QD Take by Metho di ORAL 9-[address] 11:01: daily. Hospita 54 l gabapentin Yes 600mg QD Take 600 Me thodi (NEURONTIN) 9-[address] 300 mg 11:01: mouth Hospita capsule 54 nightly. l MELOXICAM 0 Yes QD Take by Metho di ORAL 9-[address] 11:01: daily. Hospita 54 l gabapentin 0 Yes 600mg QD Take 600 Me thodi (NEURONTIN) 9-[address] 300 mg 11:01: mouth Hospita capsule 54 nightly. l MELOXICAM 0 Yes QD Take by Metho di ORAL 9-[address] 11:01: daily. Hospita 54 l gabapentin 2020- No 600mg Take 600 U nivers 300 mg 7-23 07-23 mg by ity of capsule 16:37: 00:00 mouth at [place] 47 :00 bedtime. Medical Branch gabapentin 2020- No 600mg Take 600 U nivers 300 mg 7-23 07-23 mg by ity of capsule 16:37: 00:00 mouth at [place] 47 :00 bedtime. Medical Branch gabapentin 2020- No 600mg Take 600 U nivers 300 mg 7-23 07-23 mg by ity of capsule 16:37: 00:00 mouth at [place] 47 :00 bedtime. Medical Branch meloxicam 2020- No 7.5mg Take 7.5 Un morro 7.5 mg 7-23 07-23 mg by ity of tablet 16:37: 00:00 mouth [place] 23 :00 daily. Medical Branch metformin 2020- No Take by Univ ers HCl 7-23 07-23 mouth. ity of (METFORMIN 16:37: 00:00 [place] ORAL) 23 :00 Medical Branch meloxicam 2020- No 7.5mg Take 7.5 Un morro 7.5 mg 7-23 07-23 mg by ity of tablet 16:37: 00:00 mouth [place] 23 :00 daily. Medical Branch metformin 2020- No Take by Univ ers HCl 7-23 07-23 mouth. ity of (METFORMIN 16:37: 00:00 [place] ORAL) 23 :00 Medical Branch meloxicam 2020- No 7.5mg Take 7.5 Un morro 7.5 mg 7-23 07-23 mg by ity of tablet 16:37: 00:00 mouth [place] 23 :00 daily. Medical Branch metformin 2020- No Take by Univ ers HCl 7-23 07-23 mouth. ity of (METFORMIN 16:37: 00:00 [place] ORAL) 23 :00 Medical Branch atorvastati Yes 20mg Take 20 mg Univers [...] 2 (two) Medical times Branch daily. atorvastati 2021-0 Yes 20mg Take 20 mg Univers n 20 mg 6-30 by mouth ity of tablet 00:00: daily. [address] glipiZIDE Yes TAKE ONE Univ ers XL 5 mg 24 6-30 (1) ity of hr tablet 00:00: TABLET(S) [place] 00 BY MOUTH Medical ONCE A DAY Branch WITH FOOD. metFORMIN Yes 500mg Take 500 Uni vers 500 mg 6-30 mg by ity of tablet 00:00: mouth 2 [place] [address] ([facility]) Medical times [place] daily. atorvastati Yes 20mg Take 20 mg Univers n 20 mg 6-30 by mouth ity of tablet 00:00: daily. [address] glipiZIDE Yes TAKE ONE Univ ers XL 5 mg 24 6-30 (1) ity of hr tablet 00:00: TABLET(S) [place] 00 BY MOUTH Medical ONCE A DAY Branch WITH FOOD. metFORMIN Yes 500mg Take 500 Uni vers 500 mg 6-30 mg by ity of tablet 00:00: mouth 2 [place] [address] ([facility]) Medical times [place] daily. atorvastati Yes 20mg Take 20 mg Univers n 20 mg 6-30 by mouth ity of tablet 00:00: daily. [address] glipiZIDE Yes TAKE ONE Univ ers XL 5 mg 24 6-30 (1) ity of hr tablet 00:00: TABLET(S) [place] 00 BY MOUTH Medical ONCE A DAY Branch WITH FOOD. metFORMIN Yes 500mg Take 500 Uni vers 500 mg 6-30 mg by ity of tablet 00:00: mouth 2 [place] [address] ([facility]) Medical times [place] daily. atorvastati Yes 20mg Take 20 mg Univers n 20 mg 6-30 by mouth ity of tablet 00:00: daily. [address] glipiZIDE Yes TAKE ONE Univ ers XL 5 mg 24 6-30 (1) ity of hr tablet 00:00: TABLET(S) [place] 00 BY MOUTH Medical ONCE A DAY Branch WITH FOOD. metFORMIN 2020-0 Yes 500mg Take 500 Uni vers 500 mg 6-30 mg by ity of tablet 00:00: mouth 2 [place] [address] ([facility]) Medical times [place] daily. atorvastati Yes 20mg Take 20 mg Univers n 20 mg 6-30 by mouth ity of tablet 00:00: daily. [place] Medical Branch glipiZIDE Yes TAKE ONE Univ ers XL 5 mg 24 6-30 (1) ity of hr tablet 00:00: TABLET(S) [place] 00 BY MOUTH Medical ONCE A DAY Branch WITH FOOD. metFORMIN Yes 500mg Take 500 Uni vers 500 mg 6-30 mg by ity of tablet 00:00: mouth 2 00 (two) Medical times Branch daily. metFORMIN Yes 500mg Take 500 Met hodi (GLUCOPHAGE 6-[address] ) 500 mg 00:00: mouth. Hospita tablet 00 l metFORMIN Yes 500mg Take 500 Met hodi (GLUCOPHAGE 6-[address] ) 500 mg 00:00: mouth. Hospita tablet 00 l metFORMIN Yes 500mg Take 500 Met hodi (GLUCOPHAGE 6-[address] ) 500 mg 00:00: mouth. Hospita tablet 00 l lisinopriL 2020- No 2.5mg Take 2.5 U nivers 2.5 mg 6-30 07-23 mg by ity of tablet 00:00: 00:00 mouth [place] 00 :00 daily. Medical Branch lisinopriL 2020- No 2.5mg Take 2.5 U nivers 2.5 mg 6-30 07-23 mg by ity of tablet 00:00: 00:00 mouth [place] 00 :00 daily. Medical Branch lisinopriL 2020- No 2.5mg Take 2.5 U nivers 2.5 mg 6-30 07-23 mg by ity of tablet 00:00: 00:00 mouth [place] 00 :00 daily. Medical Branch lisinopriL Yes TAKE ONE Uni vers 5 mg tablet 3-16 TABLET BY ity of 00:00: MOUTH AT [place] [address] BEDTIME Medical FOR HEART/ Branch BLOOD PRESSURE lisinopriL Yes TAKE ONE Uni vers 5 mg tablet 3-16 TABLET BY ity of 00:00: MOUTH AT [place] [address] BEDTIME Medical FOR HEART/ Branch BLOOD PRESSURE lisinopriL Yes TAKE ONE Uni vers 5 mg tablet 3-16 TABLET BY ity of 00:00: MOUTH AT [place] BEDTIME Medical FOR HEART/ Branch BLOOD PRESSURE lisinopriL Yes TAKE ONE Uni vers 5 mg tablet 3-16 TABLET BY ity of 00:00: MOUTH AT [place] BEDTIME Medical FOR HEART/ Branch BLOOD PRESSURE lisinopriL Yes TAKE ONE Uni vers 5 mg tablet 3-16 TABLET BY ity of 00:00: MOUTH AT [place] BEDTIME Medical FOR HEART/ Branch BLOOD PRESSURE lisinopriL Yes TAKE ONE Uni vers 5 mg tablet 3-16 TABLET BY ity of 00:00: MOUTH AT [place] BEDTIME Medical FOR HEART/ Branch BLOOD PRESSURE metformin 2019-04 Yes Take by Unive rs HCl 2-09 mouth. ity of (METFORMIN 20:13: [place] ORAL) Medical Branch metformin 2019-04 Yes Take by [...] (METFORMIN 20:13: [place] ORAL) 22 Medical Branch acyclovir Yes TAKE 2 Univer s 200 mg 12-19 CAPSULES ity of capsule 00:00: BY MOUTH THREE Medical TIMES A Branch DAY NEEDED FOR VIRAL INFECTION gabapentin Yes TAKE 1 Unive rs 300 mg [...] VIRAL INFECTION acyclovir 2020-0 Yes TAKE 2 Method i (ZOVIRAX) 9-[address] 200 MG 00:00: BY MOUTH Hospita capsule 00 THREE l TIMES A DAY NEEDED FOR VIRAL INFECTION acyclovir 2020-0 Yes TAKE 2 Method i (ZOVIRAX) 9-[address] 200 MG 00:00: BY MOUTH Hospita capsule 00 THREE l TIMES A DAY NEEDED FOR VIRAL INFECTION thiamine 2020-0 Yes DAILY Methodi 100 MG 7-22 st tablet 00:00: Hospita 00 l thiamine 2020-0 Yes DAILY Methodi 100 MG 7-22 st tablet 00:00: Hospita 00 l thiamine 2020-0 Yes DAILY Methodi 100 MG 7-22 st tablet 00:00: Hospita 00 l atorvastati 2020-0 Yes AT BEDTIME Methodi n (LIPITOR) 7-16 st 20 mg 00:00: Hospita tablet 00 l atorvastati 2020-0 Yes AT BEDTIME Methodi n (LIPITOR) 7-16 st 20 mg 00:00: Hospita tablet 00 l atorvastati 2020-0 Yes AT BEDTIME Methodi n (LIPITOR) 7-16 st 20 mg 00:00: Hospita tablet 00 l lisinopriL 2020-0 Yes TAKE ONE Uni vers 5 mg tablet 1-22 TABLET BY ity of 00:00: MOUTH AT [place] [address] BEDTIME Medical FOR HEART/ Branch BLOOD PRESSURE lisinopriL 2020-0 Yes TAKE ONE Uni vers 5 mg tablet 1-22 TABLET BY ity of 00:00: MOUTH AT [place] [address] BEDTIME Medical FOR HEART/ Branch BLOOD PRESSURE lisinopriL 2020-0 Yes TAKE ONE Uni vers 5 mg tablet 1-22 TABLET BY ity of 00:00: MOUTH AT [place] [address] BEDTIME Medical FOR HEART/ Branch BLOOD PRESSURE lisinopriL 2020-0 Yes TAKE ONE Uni vers 5 mg tablet 1-22 TABLET BY ity of 00:00: MOUTH AT [place] [address] BEDTIME Medical FOR HEART/ Branch BLOOD PRESSURE lisinopriL 2020-0 Yes TAKE ONE Uni vers 5 mg tablet 1-22 TABLET BY ity of 00:00: MOUTH AT [place] [address] BEDTIME Medical FOR HEART/ Branch BLOOD PRESSURE lisinopriL 2020-0 Yes TAKE ONE Uni vers 5 mg tablet 1-22 TABLET BY ity of 00:00: MOUTH AT [place] [address] BEDTIME Medical FOR HEART/ Branch BLOOD PRESSURE lisinopriL 2020-0 Yes TAKE ONE Uni vers 5 mg tablet 1-22 TABLET BY ity of 00:00: MOUTH AT [place] 00 BEDTIME Medical FOR HEART/ Branch BLOOD PRESSURE lisinopriL 2020-0 Yes TAKE ONE Uni vers 5 mg tablet 1-22 TABLET BY ity of 00:00: MOUTH AT [place] 00 BEDTIME Medical FOR HEART/ Branch BLOOD PRESSURE lisinopriL 2020-0 Yes TAKE ONE Uni vers 5 mg tablet 1-22 TABLET BY ity of 00:00: MOUTH AT [place] 00 BEDTIME Medical FOR HEART/ Branch BLOOD PRESSURE lisinopriL 2020-0 Yes TAKE ONE Uni vers 5 mg tablet 1-22 TABLET BY ity of 00:00: MOUTH AT [place] 00 BEDTIME Medical FOR HEART/ Branch BLOOD PRESSURE lisinopriL 2020-0 2020- No TAKE ONE Un morro 5 mg tablet -08 11-23 TABLET BY it y of 00:00: 00:00 MOUTH AT [place] 00 :00 BEDTIME Medical FOR HEART/ Branch BLOOD PRESSURE lisinopriL 2020-0 2020- No TAKE ONE Un morro 5 mg tablet -08 11- TABLET BY it y of 00:00: 00:00 MOUTH AT [place] 00 :00 BEDTIME Medical FOR HEART/ Branch BLOOD PRESSURE lisinopriL 2020-0 2020- No TAKE ONE Un morro 5 mg tablet -08 11- TABLET BY it y of 00:00: 00:00 MOUTH AT [place] 00 :00 BEDTIME Medical FOR HEART/ Branch BLOOD PRESSURE gabapentin 2017-04 Yes 600mg Take 600 Un morro 300 mg 0-25 mg by ity of capsule 18:58: mouth at [place] [address] bedtime. Medical Branch meloxicam 2017-04 Yes 7.5mg Take 7.5 Uni vers 7.5 mg 0-25 mg by ity of tablet 18:58: mouth [place] [address] daily. Medical Branch gabapentin 2017-04 Yes 600mg Take 600 Un morro 300 mg 0-25 mg by ity of capsule 18:58: mouth at [place] [address] bedtime. Medical Branch meloxicam 2017-04 Yes 7.5mg Take 7.5 Uni vers 7.5 mg 0-25 mg by ity of tablet 18:58: mouth [place] [address] daily. Medical Branch gabapentin 2017-04 Yes 600mg Take 600 Un morro 300 mg 0-25 mg by ity of capsule 18:58: mouth at [place] [address] bedtime. Medical Branch meloxicam 2017-04 Yes 7.5mg [...] 2020-12-11 18:59:00 174 mm[Hg] Univer sity of [facility] Diastolic blood 2020-12-11 18:59:00 83 [facility]Hg[facility] 2020-12-11 18:59:00 86 /min [facility] Body temperature 2020-12-11 18:59:00 36.17 [place] [facility] ersity [facility] Body height 2020-12-11 18:59:00 177.8 cm [facility] Body weight 2020-12-11 18:59:00 133.221 kg [facility] BMI 2020-12-11 18:59:00 42.14 kg/m2 [facility] Systolic blood 2020-11-08 19:02:00 152 mm[Hg] Univer sity of [facility] Diastolic blood 2020-11-08 19:02:00 83 mm[Hg] Unive rsity of [facility] Heart rate 2020-11-08 19:02:00 81 /min [facility] Body temperature 2020-11-08 19:02:00 36.17 [place] Univ ersity of [facility] Body height 2020-11-08 19:02:00 177.8 cm Universi ty of [place] [facility] Body weight 2020-11-08 19:02:00 132.541 kg Universi ty of [place] [facility] BMI 2020-11-08 19:02:00 41.93 kg/m2 Universi ty of [facility] Systolic blood 2020-03-28 20:13:00 147 mm[Hg] Univer sity of pressure [facility] Diastolic blood 2020-03-28 20:13:00 71 mm[Hg] Unive rsity of pressure [facility] Heart rate 2020-03-28 20:13:00 75 /min Universi ty of [facility] Body temperature 2020-03-28 19:53:00 36.44 [place] Univ ersity of [facility] Respiratory rate 2020-03-28 19:53:00 20 /min Univ ersity of [facility] Body height 2020-03-28 19:53:00 172.7 cm Universi ty of [place] [facility] Body weight 2020-03-28 19:53:00 128.368 kg Universi ty of [place] [facility] BMI 2020-03-28 19:53:00 43.03 kg/m2 Universi ty of [facility] Branch Oxygen saturation in 2020-03-28 19:53:00 98 /min [facility] blood by [facility] Pulse oximetry Branch Systolic blood 2020-03-28 20:13:00 147 mm[Hg] Univer sity of pressure [facility] Diastolic blood 2020-03-28 20:13:00 71 mm[Hg] Unive rsity of pressure [facility] Branch Heart rate 2020-03-28 20:13:00 75 /min Universi ty of [place] [facility] Body temperature 2020-03-28 19:53:00 36.44 [place] Univ ersity of [facility] Respiratory rate 2020-03-28 19:53:00 20 /min Univ ersity of [facility] Body height 2020-03-28 19:53:00 172.7 cm Universi ty of [place] [facility] Body weight 2020-03-28 19:53:00 128.368 kg Universi ty of [facility] BMI 2020-03-28 19:53:00 43.03 kg/m2 Universi ty of [facility] Oxygen saturation in 2020-03-28 19:53:00 98 /min [facility] Arterial blood by [facility] Pulse oximetry Branch Systolic blood 2021-04-04 20:17:00 158 mm[Hg] [facility] pressure Diastolic blood 2021-04-04 20:17:00 88 mm[Hg] [facility] pressure Heart rate 2021-04-04 20:17:00 72 /min [facility] Procedures Procedure Date / Time Performed Performing Clinician Sourc e EXTERNAL PROVIDER 2020-06-20 06:01:00 Doctor Unassigned, No [facility] RECORDS Name Medical Branch CT THORAX WO CONTRAST 2020-03-30 20:20:00 Wendyysabel Sarina [facility] Medical [place] NOTICE OF PRIVACY 2020-03-30 19:58:45 Doctor Unassigned, No [facility] PRACTICES Name Medical [place] CONSENT/REFUSAL FOR 2020-03-30 19:58:27 Doctor Unassigned, No [facility] DIAGNOSIS AND Name Medical [place] TREATMENT ASSIGNMENT OF BENEFITS 2020-03-30 19:58:12 Doctor Unassigned, No [facility] Name Medical Branch REFERRAL- 2020-03-26 06:01:00 Doctor Unassigned, No [facility] REQUEST/RESPONSE Name [facility] Plan of Care Planned Activity Planned Date Details Comments Source Future Scheduled 2022-11-26 [facility] Test 09:31:51 malignant neoplasm of colon (procedure) [code = 373141038] Future Scheduled 2022-11-26 [facility] Test 09:31:51 malignant neoplasm of colon (procedure) [code = 570637977] Future Scheduled 2022-11-26 [facility] Test 09:31:51 malignant neoplasm of colon (procedure) [code = 581811228] Future Scheduled 2022-11-26 COVID-19 VACCINE (#1) [facility] Test 09:31:51 [code = COVID-19 VACCINE (#1)] Future Scheduled 2022-11-26 Hepatitis C screening [facility] Test 09:31:51 (procedure) [code = 801586063] Future Scheduled 2022-11-26 [facility] Test 09:31:51 malignant neoplasm of colon (procedure) [code = 168961250] Future Scheduled 2022-11-26 [facility] Test 09:31:51 malignant neoplasm of colon (procedure) [code = 712115247] Future Scheduled 2022-11-26 SHINGLES VACCINES (1 Met [facility] Test 09:31:51 of 2) [code = SHINGLES VACCINES (1 of 2)] Future Scheduled 2022-11-26 65+ PNEUMOCOCCAL [facility] Test 09:31:51 VACCINE (1 - PCV) [code = 65+ PNEUMOCOCCAL VACCINE (1 - PCV)] Future Scheduled 2022-11-26 INFLUENZA VACCINE [facility] Test 09:31:51 [code = INFLUENZA VACCINE] Future Scheduled 2022-07-25 COVID-19 VACCINE (#1) [facility] Test 16:36:08 [code = COVID-19 VACCINE (#1)] Future Scheduled 2022-07-25 Hepatitis C screening [facility] Test 16:36:08 (procedure) [code = 978310803] Future Scheduled 2022-07-25 COLONOSCOPY SCREENING [facility] Test 16:36:08 [code = COLONOSCOPY SCREENING] Future Scheduled 2022-07-25 SHINGLES VACCINES (1 Met [facility] Test 16:36:08 of 2) [code = SHINGLES VACCINES (1 of 2)] Future Scheduled 2022-07-25 65+ PNEUMOCOCCAL [facility] Hospital Test 16:36:08 VACCINE (1 - PCV) [code = 65+ PNEUMOCOCCAL VACCINE (1 - PCV)] Future Scheduled 2022-07-25 INFLUENZA VACCINE Method is Hospital Test 16:36:08 [code = INFLUENZA VACCINE] Future Scheduled 2022-02-21 HEPATITIS B VACCINES Met [facility] Test 17:40:49 (1 of 3 - 3-dose series) [code = HEPATITIS B VACCINES (1 of 3 - 3-dose series)] Future Scheduled 2022-02-21 COVID-19 VACCINE (#1) [facility] Test 17:40:49 [code = COVID-19 VACCINE (#1)] Future Scheduled 2022-02-21 Hepatitis C screening [facility] Test 17:40:49 (procedure) [code = 589449689] Future Scheduled 2022-02-21 COLONOSCOPY SCREENING [facility] Test 17:40:49 [code = COLONOSCOPY SCREENING] Future Scheduled 2022-02-21 SHINGLES VACCINES (1 [facility] Test 17:40:49 of 2) [code = SHINGLES [...] ID 2021-04-04 2021-04-04 Office Yu Paredes [id number] Methodi 14:15:00 14:38:21 Visit John Paul 76756.1.[address] 3.430.2.7 Hospit a .3.240045 l .8 2021-04-04 2021-04-04 Travel 1.2.840.1 [id number] Methodi 00:00:00 00:00:[address] 3.430.2.7 0.2.7.3.698 Ho spita .[id number] 084.8 l .8 2020-12-11 2020-12-11 Office PASCUAL Bishop [id number] Univers 13:51:08 14:11:08 Visit Elvis Michael [facility] [id number] i ty of CLINICS 4.2.7.2.686 Heidi vega [id number] [address] 2020-12-11 2020-12-11 Outpatient R EDNA [facility] [id number] Univers 14:00:00 14:00:00 ELVIS pollard [facility] 2020-11-08 2020-11-08 Outpatient R DONOVAN GONZALEZ [facility] [id number] Univers 14:45:00 14:45:00 atul [facility] 2020-11-08 2020-11-08 Office Donovan GonzalezIT 1.2.840.114 [id number] Univers 13:44:02 13:59:02 Visit HEALTH [id number] i ty of [place] [id number] [facility] [address] [place] 2020-06-20 2020-06-20 Orders Doctor SONI 1.2.840.114 [id number] Univers 00:00:00 00:00:00 Only Unassigned, WAYNE 350.1.13.10 ity of [place] [facility] 4.2.7.2.686 [place] [id number] [place] [address] Branch 2020-06-12 2020-06-[address] [facility] 1.2.840.114 [id number] Univers 00:00:00 00:00:00 [place] [id number] [place].2.[place] [phone] [address] 2020-04-23 2020-04-[address] [facility] 1.2.840.114 [id number] Univers 00:00:00 00:00:00 [place] [id number] ity [place] 4[place].2.[place] [phone] [address] 2020-04-23 2020-04-[address] [facility] 1.2.840.114 [id number] 00:00:00 00:00:00 [place] [id number] [place] 4.2.7.2.686 Professio [id number] [address] 2020-04-06 2020-04-06 [facility] [id number] Univers 15:15:00 15:15:00 [place] ity of [facility] 2020-04-04 2020-04-04 Case Christine, UNIVERSIT 1.2.840.114 [id number] Univers 00:00:00 00:00:00 Management Sarina Y HEALTH [id number] ity of [place] [id number] [address] 2020-04-04 2020-04-04 Case Catvinodt, UNIVERSIT 1.2.840.114 [id number] 00:00:00 00:00:00 Management Sarina Rodriguez [facility] [id number] CLINICS 4.2.7.2.686 [id number] [facility] 2020-03-30 2020-03-30 [facility] [id number] Univers 14:00:00 23:59:00 Encounter Sarina De 350.1.13.10 it[place]2.7.2.686 [place] [phone] [address] 2020-03-30 2020-03-30 Outpatient R [facility] [id number] Univers 00:00:00 00:00:00 SARINA ity [facility] 2020-03-30 2020-03-[address] [facility] 1.2.840.114 [id number] [facility] 00:00:00 00:00:00 [place] [id number] ity [place]2.[place] [phone] [place] dical [address] 2020-03-28 2020-03-[address] [facility] 1.2.840.114 [id number] 13:12:23 14:52:39 Visit [place] [id number] [place] 4.2.7.2.686 Professio [phone] [address] 2020-03-28 2020-03-[address] [facility] 1.2.840.114 [id number] Univers 13:12:23 14:52:39 Visit [place] 350.1.13.10 ity [place] 4[place].2.[place] [phone] [place] dic[address] 2020-03-28 2020-03-28 [facility] [id number] Univers 14:00:00 14:00:00 [place] ity [facility] 2020-03-27 2020-03-27 [facility] Christine [facility] 1.2.840.114 [id number] Univers 00:00:00 00:00:00 Management Sarina ALMONTE [id number] ity of CL[place] [id number] [id number] [facility] [address] 2020-03-26 2020-03-26 Orders Doctor SONI [id number] [employer] 00:00:00 00:00:00 Only Unassigned, WAYNE [id number] ity of [facility] [id number] [place] as [phone] [facility] [address] Results Test Description Test Time Test Results Result Source Comments Comments CT THORAX WO 2020-03-20 Addendum by [place] [id number] Roverto Viera MD [facility] 21:01:36 on 03/30/2020 3:47 PM* Br anch [...]
--- NOTE | 2022-11-26 11:06 | EDPHYS ---
Physician Documentation [facility] Name: Thiago Selby Age: 72 yrs Sex: Male : 1950 Arrival Date: 11/26/2022 Time: 09:28 Bed 18 Private MD: ED Physician Christopher Scales HPI: 11/26 09:57 This 72 yrs old Male presents to ER via Ambulatory with complaints of Flu sp3 Symptoms. 09:57 72-year-old male with history of diabetes and hypertension that presents to the ED with sp3 chief complaint body aches, subjective fever, mild cough that is been going on for approximately 4 days. Patient was recently on a cruise to [place] which may have contributed to sick contacts. He denies chest pain, abdominal pain, nausea, vomiting, diarrhea, headache, skin rash, syncope, near syncope, or any other signs or symptoms on ROS at this time.. Historical: - Allergies: 09:39 No Known Allergies; iw - PMHx: 09:39 Diabetes - NIDDM; Hypertension; iw - PSHx: 09:39 Appendectomy; Cholecystectomy; Operative procedure on knee; iw - Immunization history:: Adult Immunizations Client reports receiving the 2nd dose of the Covid vaccine. - Social history:: Smoking status: Patient denies any tobacco usage or history of. ROS: 09:58 Eyes: Negative for injury, pain, redness, and discharge, Neck: Negative for injury, sp3 pain, and swelling, Cardiovascular: Negative for chest pain, palpitations, and edema, Abdomen/GI: Negative for abdominal pain, nausea, vomiting, diarrhea, and constipation, Back: Negative for injury and pain, MS/Extremity: Negative for injury and deformity, Skin: Negative for injury, rash, and discoloration, Neuro: Negative for headache, weakness, numbness, tingling, and seizure, Psych: Negative for depression, anxiety, suicide ideation, homicidal ideation, and hallucinations, Allergy/Immunology: Negative for hives, rash, and allergies, Endocrine: Negative for neck swelling, polydipsia, polyuria, polyphagia, and marked weight changes. 09:58 All other systems are negative. Exam: 09:58 Constitutional: This is a well developed, well nourished patient who is awake, alert, sp3 and in no acute distress. Head/Face: Normocephalic, atraumatic. Eyes: Pupils equal round and reactive to light, extra-ocular motions intact. Lids and lashes normal. Conjunctiva and sclera are non-icteric and not injected. Cornea within normal limits. Periorbital areas with no swelling, redness, or edema. ENT: Nares patent. No nasal discharge, no septal abnormalities noted. External auditory canals are clear. Oropharynx with no redness, swelling, or masses, exudates, or evidence of obstruction, uvula midline. Mucous membranes moist. Neck: Trachea midline, no thyromegaly or masses palpated, and no cervical lymphadenopathy. Supple, full range of motion without nuchal rigidity, or vertebral point tenderness. No Meningismus. Chest/axilla: Normal chest wall appearance and motion. Nontender with no deformity. No lesions are appreciated. Cardiovascular: Regular rate and rhythm with a normal S1 and S2. No gallops, murmurs, or rubs. Normal PMI, no JVD. No pulse deficits. Respiratory: Lungs have equal breath sounds bilaterally, clear to auscultation and percussion. No rales, rhonchi or wheezes noted. No increased work of breathing, no retractions or nasal flaring. Abdomen/GI: Soft, non-tender, with normal bowel sounds. No distension or tympany. No guarding or rebound. No evidence of tenderness throughout. Back: No spinal tenderness. No costovertebral tenderness. Full range of motion. Skin: Warm, dry with normal turgor. Normal color with no rashes, no lesions, and no evidence of cellulitis. MS/ Extremity: Pulses equal, no cyanosis. Neurovascular intact. Full, normal range of motion. Neuro: Awake and alert, GCS 15, oriented to person, place, time, and situation. Cranial nerves II-XII grossly intact. Motor strength 5/5 in all extremities. Sensory grossly intact. Cerebellar exam normal. Normal gait. Psych: Awake, alert, with orientation to person, place and time. Behavior, mood, and affect are within normal limits. Vital Signs: 09:37 BP 152 / 74; Pulse 62; Resp 19; Temp 97.7(TE); Pulse Ox 98% on R/A; Weight 121.11 kg; iw Height 5 ft. 10 in. ; Pain 7/10; 11:00 BP 130 / 72; Pulse 69; Resp 17 S; Pulse Ox 93% on R/A; kc6 09:37 Body Mass Index 38.31 (121.11 kg, 177.8 cm) iw 09:37 Pain Scale: Adult iw MDM: 09:57 Patient medically screened. sp3 09:59 Data reviewed: vital signs, nurses notes, lab test result(s), radiologic studies. ED sp3 course: 72-year-old male with flulike symptoms with recent travel history. Patient vital signs are normal and he is in no acute distress. Will obtain chest x-ray, influenza screen, COVID PCR, strep screen, and general observation. If workup is negative we will safely discharge patient home with diagnosis of viral syndrome. Otherwise we will treat any positive findings appropriately. Ultimate disposition will be home with PCP follow-up.. 11:05 ED course: Patient screens positive for both strep and COVID. Patient's last COVID was sp3 in 2019 so I believe this is a new infection. He is beyond the first several days where antiviral agents will be useful. Will treat with antibiotics and patient can follow-up with his PCP.. 11/26 09:54 Order name: Flu; Complete Time: 11:04 sp3 11/26 09:54 Order name: SARS-COV-2 RT PCR; Complete Time: 11:04 sp3 11/26 09:54 Order name: Strep; Complete Time: 10:35 sp3 11/26 09:54 Order name: CXR XRAY; Complete Time: 11:11 sp3 Administered Medications: No medications were administered Disposition Summary: 11/26/22 11:06 Discharge Ordered Location: Home sp3 Condition: Stable sp3 Diagnosis - COVID-19, strep pharyngitis sp3 Followup: sp3 - With: Private Physician - When: Upon discharge from the Emergency Department - Reason: Recheck today's complaints Discharge Instructions: - Discharge Summary Sheet sp3 - Strep Throat, Adult sp3 - COVID-19 sp3 Forms: - Medication Reconciliation Form sp3 - Thank You Letter sp3 - Antibiotic Education sp3 - Prescription Opioid Use sp3 - Patient Portal Instructions sp3 Prescriptions: - Augmentin 875-125 mg Oral Tablet - take 1 tablet by ORAL route every 12 hours for 10 days; 20 tablet; Refills: 0, sp3 Product Selection Permitted Signatures: Dispatcher [employer] Geeta Santiago RN RN iw Christopher Scales, MD sp3
--- NOTE | 2022-11-26 11:06 | ER ---
Nurse's Notes [facility] Name: Thiago Selby Age: 72 yrs Sex: Male : 1950 Arrival Date: 11/26/2022 Time: 09:28 Bed 18 Private MD: Diagnosis: COVID-19, strep pharyngitis Presentation: 11/26 09:37 Chief complaint: Patient states: i have a cough and cold, mild headache, started iw Thursday , +body aches, feels similar to when he had COVID but the cough isn't as bad. Coronavirus screen: Client presents with at least one sign or symptom that may indicate coronavirus-19. Ebola Screen: Patient negative for fever greater than or equal to 101.5 degrees Fahrenheit, and additional compatible Ebola Virus Disease symptoms Patient denies exposure to infectious person. Patient denies travel to an Ebola-affected area in the 21 days before illness onset. Initial Sepsis Screen: Does the patient meet any 2 criteria? No. Patient's initial sepsis screen is negative. Does the patient have a suspected source of infection? No. Patient's initial sepsis screen is negative. Risk Assessment: Do you want to hurt yourself or someone else? Patient reports no desire to harm self or others. Onset of symptoms was November 22, 2022. 09:37 Method Of Arrival: Ambulatory iw 09:37 Acuity: NOE 4 iw Historical: - Allergies: 09:39 No Known Allergies; iw - PMHx: 09:39 Diabetes - NIDDM; Hypertension; iw - PSHx: 09:39 Appendectomy; Cholecystectomy; Operative procedure on knee; iw - Immunization history:: Adult Immunizations Client reports receiving the 2nd dose of the Covid vaccine. - Social history:: Smoking status: Patient denies any tobacco usage or history of. Screenin:47 [place] ED Fall Risk Assessment (Adult) History of falling in the last 3 months, kc6 including since admission No falls in past 3 months (0 pts) Confusion or Disorientation No (0 pts) Intoxicated or Sedated No (0 pts) Impaired Gait No (0 pts) Mobility Assist Device Used No (0 pt) Altered Elimination No (0 pt) Score/Fall Risk Level 0 - 2 = Low Risk. Abuse screen: Denies threats or abuse. Denies injuries from another. Nutritional screening: No deficits noted. Tuberculosis screening: No symptoms or risk factors identified. Assessment: 09:45 General: Appears in no apparent distress. uncomfortable, ill, Behavior is calm, kc6 cooperative, appropriate for age. Neuro: Level of Consciousness is awake, alert, obeys commands, Oriented to person, place, time, situation, Appropriate for age. Cardiovascular: Capillary refill < 3 seconds. Respiratory: Reports cough that is Airway is patent Trachea midline Respiratory effort is even, unlabored, Respiratory pattern is regular, symmetrical. GI: No signs and/or symptoms were reported involving the gastrointestinal system. : No signs and/or symptoms were reported regarding the genitourinary system. EENT: No signs and/or symptoms were reported regarding the EENT system. Derm: No signs and/or symptoms reported regarding the dermatologic system. Skin is intact, is healthy with good turgor, Skin is pink, warm \T\ dry. Musculoskeletal: No signs and/or symptoms reported regarding the musculoskeletal system. Circulation, motion, and sensation intact. Capillary refill < 3 seconds, Range of motion: intact in all extremities. 10:45 Reassessment: Patient appears in no apparent distress at this time. No changes from kc6 previously documented assessment. Patient and/or family updated on plan of care and expected duration. Pain level reassessed. Patient is alert, oriented x 3, equal unlabored respirations, skin warm/dry/pink. Vital Signs: 09:37 BP 152 / 74; Pulse 62; Resp 19; Temp 97.7(TE); Pulse Ox 98% on R/A; Weight 121.11 kg; iw Height 5 ft. 10 in. ; Pain 7/10; 11:00 BP 130 / 72; Pulse 69; Resp 17 S; Pulse Ox 93% on R/A; kc6 09:37 Body Mass Index 38.31 (121.11 kg, 177.8 cm) iw 09:37 Pain Scale: Adult iw ED Course: 09:32 Patient arrived in ED. mg5 09:39 Triage completed. iw 09:39 Arm band placed on. iw 09:40 Roxann Fu RN is Primary Nurse. kc6 09:42 Christopher Scales MD is Attending Physician. sp3 09:49 Patient has correct armband on for positive identification. Bed in low position. Call kc6 light in reach. Side rails up X 1. 10:17 CXR XRAY In Process Unspecified. EDMS 11:23 No provider procedures requiring assistance completed. Patient did not have IV access kc6 during this emergency room visit. Administered Medications: No medications were administered Medication: 11:23 VIS not applicable for this client. kc6 Outcome: 11:06 Discharge ordered by . [email or web address] 11:23 Discharged to home ambulatory. kc6 11:23 Condition: stable 11:23 Discharge instructions given to patient, Instructed on discharge instructions, follow up and referral plans. medication usage, Demonstrated understanding of instructions, follow-up care, medications, Prescriptions given X 1. 11:23 Patient left the ED. kc6 Signatures: Dispatcher [employer] EDGeeta Mesa RN RN iw Christopher Scales MD MD sp3 Roxann Fu RN RN kc6 [place] mg5 Corrections: (The following items were deleted from the chart) 10:29 09:37 BP 152 / 74; Pulse 62bpm; Resp 19bpm; Pulse Ox 98% RA; 121.11 kg; Height 5 ft. 10 iw in.; BMI: 38.3; Pain 7/10, Adult; iw
--- NOTE | 2022-11-26 11:09 | RAD REPORT ---
EXAM DESCRIPTION: RADChest Single View11/26/2022 10:16 am CLINICAL HISTORY: COUGH COMPARISON: Chest Single View dated 08/02/2022; Chest Single View dated 03/25/2022; Chest Pa And Lat ( 2 Views) dated 03/17/2020; Chest Single View dated 11/08/2019 TECHNIQUE: Portable AP view of the chest. FINDINGS: The lungs show no focal consolidation. Streaky perihilar opacities particularly on the lef t may relate to reactive airway changes. No pneumothorax or effusion. The cardiomediastinal contours are unremarkable. IMPRESSION: Findings suggestive of reactive airway changes or viral infection. No evidence of focal pneumonia.
[2022-11-26 11:33] VITALS: TEMP 97.7
[2022-11-26 11:35] VITALS: BP 130/72; O2SAT 93
== END 2022-11-26 11:23 | disposition home or self-care (01) ==
LOC: ER 09:28
DX: U07.1 COVID-19 (principal); J02.0 Streptococcal pharyngitis; E11.9 Type 2 diabetes mellitus without complications; I10 Essential (primary) hypertension
CPT/HCPCS: 71045; 87081; 87635; 87804

== ENCOUNTER → 2023-04-11 | Emergency (ER) | payer OTHER ==
[~2023-04-11] MED LIST: AZITHROMYCIN 250 MG TAB ONE
[2023-04-11 06:59] LABS: Absolute Lymphocytes (CBC) 1.9 K/uL (0.7-4.9); Hematocrit 42.7 % (39.6-49.0); Lymphocytes % 33.5 % (15.3-44.8); MCV 87.6 fL (80-100); MPV 8.8 fL (7.6-11.3); Platelets 190 thou/uL (152-406); RBC Red Blood Cell Count 4.87 M/uL (4.33-5.43)
[2023-04-11 06:59] LABS: SARS-CoV-2 Antigen Rapid Res Negative (Negative)
[2023-04-11 07:13] LABS: Potassium 3.7 mEq/L (3.5-5.1); Troponin High Sensitivity 12.5 pg/mL (<58.9)
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
--- NOTE | 2023-04-11 07:55 | ER ---
Nurse's Notes [facility] Name: Thiago Selby Age: 72 yrs Sex: Male : 1950 Arrival Date: 04/11/2023 Time: 05:51 Bed 4 Private MD: Diagnosis: Acute upper respiratory infection, unspecified;Cough Presentation: 04/11 06:09 Chief complaint: Patient states: I have been having flu like symptoms for the past few jb4 days. I have not had any N/V/D. I am coughing up clear phlegm. Coronavirus screen: At this time, the client does not indicate any symptoms associated with coronavirus-19. Ebola Screen: No symptoms or risks identified at this time. Initial Sepsis Screen: Does the patient meet any 2 criteria? No. Patient's initial sepsis screen is negative. Does the patient have a suspected source of infection? No. Patient's initial sepsis screen is negative. Risk Assessment: Do you want to hurt yourself or someone else? Patient reports no desire to harm self or others. Onset of symptoms was April 11, 2023. Transition of care: patient was not received from another setting of care. 06:09 Method Of Arrival: Ambulatory jb4 06:09 Acuity: NOE 4 jb4 Historical: - Allergies: 06:13 No Known Allergies; jb4 - PMHx: 06:13 Diabetes - NIDDM; Hypertension; jb4 - PSHx: 06:13 Operative procedure on knee; Appendectomy; Cholecystectomy; jb4 - Immunization history:: Adult Immunizations up to date. - Social history:: Smoking status: Patient denies any tobacco usage or history of. Screenin:15 [facility] ED Fall Risk Assessment (Adult) History of falling in the last 3 months, km8 including since admission No falls in past 3 months (0 pts) Confusion or Disorientation No (0 pts) Intoxicated or Sedated No (0 pts) Impaired Gait No (0 pts) Mobility Assist Device Used No (0 pt) Altered Elimination No (0 pt) Score/Fall Risk Level 0 - 2 = Low Risk Oriented to surroundings, Maintained a safe environment, Educated pt \T\ family on fall prevention, incl call for assistance when getting out of bed, Assessed \T\ reinforced patient's understanding of fall precautions. Abuse screen: Denies threats or abuse. Denies injuries from another. Nutritional screening: No deficits noted. Tuberculosis screening: No symptoms or risk factors identified. Assessment: 06:15 General: Appears in no apparent distress. comfortable, Behavior is calm, cooperative, km8 appropriate for age. Pain: Complains of pain in generalized Quality of pain is described as aching. Neuro: Level of Consciousness is awake, alert, obeys commands, Oriented to person, place, time, situation. Cardiovascular: Denies chest pain, Capillary refill < 3 seconds Patient's skin is warm and dry. Respiratory: Reports cough that is productive, Airway is patent Respiratory effort is even, unlabored, Respiratory pattern is regular, symmetrical. GI: No signs and/or symptoms were reported involving the gastrointestinal system. : No signs and/or symptoms were reported regarding the genitourinary system. EENT: No signs and/or symptoms were reported regarding the EENT system. Derm: Skin is intact, Skin is dry, Skin is pink, warm \T\ dry. normal, Skin temperature is warm. Musculoskeletal: Circulation, motion, and sensation intact. Range of motion: intact in all extremities. 07:15 Reassessment: Patient appears in no apparent distress at this time. No changes from jl7 previously documented assessment. Patient and/or family updated on plan of care and expected duration. Pain level reassessed. Patient is alert, oriented x 3, equal unlabored respirations, skin warm/dry/pink. Vital Signs: 06:09 BP 145 / 68; Pulse 66; Resp 16; Temp 97.5; Pulse Ox 95% on R/A; Weight 121.11 kg; jb4 Height 5 ft. 10 in. ; 06:30 BP 134 / 75; Pulse 65; Resp 16; Pulse Ox 98% on R/A; km8 08:00 BP 140 / 75; Pulse 65; Resp 15; Pulse Ox 98% ; jl7 06:09 Body Mass Index 38.31 (121.11 kg, 177.8 cm) jb4 Anil Coma Score: 06:15 Eye Response: spontaneous(4). Motor Response: obeys commands(6). Verbal Response: km8 oriented(5). Total: 15. ED Course: 05:58 Patient arrived in ED. gm2 06:02 Christopher Scales MD is Attending Physician. sp3 06:13 Triage completed. jb4 06:13 Arm band placed on right wrist. jb4 06:15 Patient has correct armband on for positive identification. Bed in low position. Call km8 light in reach. Side rails up X 1. Pulse ox on. NIBP on. 06:15 No provider procedures requiring assistance completed. Patient maintains SpO2 km8 saturation greater than 95% on room air. 06:19 SARS RAPID Sent. km8 06:19 Flu Sent. km8 06:43 CXR XRAY In Process Unspecified. EDMS 06:49 Basic Metabolic Panel Sent. km8 06:49 CBC with Diff Sent. km8 06:49 Troponin HS Sent. km8 06:49 Inserted saline lock: 20 gauge in left antecubital area, using aseptic technique. Blood km8 collected. 07:36 Attending Physician role handed off by Christopher Scales MD [facility] 07:36 Hector Grant MD is Attending Physician. [facility] 08:00 Provided Education on: use of medications. jl7 08:03 Mercy Blackburn, RN is Primary Nurse. jl7 08:16 IV discontinued, intact, bleeding controlled, No redness/swelling at site. Pressure jl7 dressing applied. Administered Medications: 08:14 Drug: AZITHromycin PO 500 mg PO once Route: PO; jl7 Medication: 06:15 VIS not applicable for this client. km8 Outcome: 07:54 Discharge ordered by . [facility] 08:16 Discharged to home ambulatory, jl7 08:16 Condition: stable 08:16 Discharge instructions given to patient, Instructed on discharge instructions, follow up and referral plans. medication usage, Demonstrated understanding of instructions, follow-up care, medications, Prescriptions given X 3, 08:16 Patient left the ED. jl7 Signatures: Dispatcher [employer] EDIN Hector Grant MD MD cha Bryson, James, RN RN jb4 Mercy Blackburn, RN RN jl7 Christopher Scales MD MD sp3 Ania Ott 2 Kirstin Gonzales, RN RN km8 Corrections: (The following items were deleted from the chart) 06:26 06:15 Respiratory: Airway is patent Respiratory effort is even, unlabored, Respiratory km8 pattern is regular, symmetrical, km8
[2023-04-11 08:26] VITALS: TEMP 97.5
[2023-04-11 08:32] VITALS: O2SAT 98
[2023-04-11 08:38] VITALS: BP 140/75
--- NOTE | 2023-04-11 09:04 | RAD REPORT ---
EXAM DESCRIPTION: Chris Single View04/11/2023 6:42 am CLINICAL HISTORY: Cough COMPARISON: September 2022 FINDINGS: The lungs appear clear of acute infiltrate. The heart is borderline enlarged IMPRESSION: No acute abnormalities displayed
== END ==
LOC: ER 05:51
DX: J06.9 Acute upper respiratory infection, unspecified (principal); E11.9 Type 2 diabetes mellitus without complications; I10 Essential (primary) hypertension; Z11.52 Encounter for screening for COVID-19
CPT/HCPCS: 36415; 71045; 80048; 84484; 85025; 87804; 87811; 93005; 99284

== ENCOUNTER 2024-01-03 13:09 | Emergency (ER) | payer OTHER ==
--- NOTE | 2024-01-03 13:28 | ER ---
Nurse's Notes [facility] Name: Thiago Selby Age: 73 yrs Sex: Male : 1950 Arrival Date: 01/03/2024 Time: 13:09 Bed 13 Private MD: Diagnosis: Acute suppurative otitis media with spontaneous rupture of ear drum, left ear Presentation: 01/02 13:17 Chief complaint: Left ear pain x 1 week. On Augmentin day 5. Coronavirus screen: At this time, the client does not indicate any symptoms associated with coronavirus-19. Ebola Screen: No symptoms or risks identified at this time. Initial Sepsis Screen: Does the patient meet any 2 criteria? No. Patient's initial sepsis screen is negative. Does the patient have a suspected source of infection? No. Patient's initial sepsis screen is negative. Risk Assessment: Do you want to hurt yourself or someone else? Patient reports no desire to harm self or others. Onset of symptoms was December 28, 2023. 13:17 Method Of Arrival: Ambulatory hb 13:17 Acuity: NOE 4 hb Triage Assessment: 13:33 General: Behavior is appropriate for age. ko1 Historical: - Allergies: 13:18 No Known Allergies; hb - Home Meds: 13:18 atorvastatin 20 mg Oral tab 1 tab once daily [Active]; gabapentin 300 mg Oral cap hb [Active]; lisinopril 5 mg Oral tab 1 tab once daily [Active]; metformin 500 mg Oral tab 1 tab [Active]; - PMHx: 13:18 Diabetes - NIDDM; Hypertension; hb - PSHx: 13:18 Appendectomy; Cholecystectomy; Operative procedure on knee; hb - Immunization history:: Adult Immunizations up to date. - Infectious Disease History:: Denies. - Social history:: Smoking status: Patient denies any tobacco usage or history of. Screenin:27 [facility] ED Fall Risk Assessment (Adult) History of falling in the last 3 months, ko1 including since admission No falls in past 3 months (0 pts) Confusion or Disorientation No (0 pts) Intoxicated or Sedated No (0 pts) Impaired Gait No (0 pts) Mobility Assist Device Used No (0 pt) Altered Elimination No (0 pt) Score/Fall Risk Level 0 - 2 = Low Risk Oriented to surroundings, Maintained a safe environment, Educated pt \T\ family on fall prevention, incl call for assistance when getting out of bed, Assessed \T\ reinforced patient's understanding of fall precautions, Provided non-skid footwear, Hourly rounding (assess needs \T\ fall precautionary measures) done. Abuse screen: Denies threats or abuse. Denies injuries from another. Nutritional screening: No deficits noted. Tuberculosis screening: No symptoms or risk factors identified. Assessment: 13:27 General: Appears in no apparent distress. Pain: Complains of pain in left ear. Neuro: ko1 No deficits noted. Cardiovascular: No deficits noted. Respiratory: No deficits noted. GI: No deficits noted. : No deficits noted. EENT: Reports pain in left ear. Derm: No deficits noted. Musculoskeletal: No deficits noted. Vital Signs: 13:17 BP 150 / 77; Pulse 63; Resp 16; Temp 97.5(TE); Pulse Ox 100% on R/A; Pain 6/10; hb 13:17 Pain Scale: Adult hb ED Course: 13:10 Patient arrived in ED. im 13:11 Lidia Morris PA-C is PHCP. sb4 13:11 Ventura Lara MD is Attending Physician. sb4 13:13 Patricia Boothe, COREY is Primary Nurse. ko1 13:18 Triage completed. hb 13:19 Arm band placed on. hb 13:27 Maida Barroso MD is Referral Physician. sb4 13:27 Patient has correct armband on for positive identification. Bed in low position. Call ko1 light in reach. Side rails up X 1. Provided Education on: meds. Pulse ox on. NIBP on. Door closed. Noise minimized. Lights dimmed. Warm blanket given. Pillow given. 13:27 No provider procedures requiring assistance completed. Patient did not have IV access ko1 during this emergency room visit. Administered Medications: No medications were administered Medication: 13:27 VIS not applicable for this client. ko1 Outcome: 13:28 Discharge ordered by . sb4 13:32 Discharged to home ambulatory, ko1 13:32 Condition: stable 13:32 Discharge instructions given to patient, Instructed on discharge instructions, follow up and referral plans. medication usage, Demonstrated understanding of instructions, follow-up care, medications, Prescriptions given X 1, 13:33 Patient left the ED. ko1 Signatures: Bobbi Neal RN RN hb Patricia Boothe RN RN ko1 Lidia Morris PA-C PAViktor sb4 Megan Del Cid Corrections: (The following items were deleted from the chart) 13:19 13:18 Home Meds: lisinopril 5 mg Oral tab 1 tab once daily; hb hb
--- NOTE | 2024-01-03 13:28 | EDPHYS ---
Physician Documentation [facility] Name: Thiago Selby Age: 73 yrs Sex: Male : 1950 Arrival Date: 01/03/2024 Time: 13:09 Bed 13 Private MD: ED Physician Ventura Lara HPI: 01/02 14:01 This 73 yrs old Male presents to ER via Ambulatory with complaints of Ear Pain.sb4 14:01 The patient presents with pain, that is acute. The complaints affect the left ear. sb4 Onset: The symptoms/episode began/occurred 5 day(s) ago. Modifying factors: The symptoms are alleviated by nothing, the symptoms are aggravated by nothing. Associated signs and symptoms: The patient has no apparent associated signs or symptoms. The patient has not experienced similar symptoms in the past. The patient has been recently seen by a physician: Dr. sims with similar presenting complaints, was given a prescription for antibiotics. Historical: - Allergies: 13:18 No Known Allergies; hb - Home Meds: 13:18 atorvastatin 20 mg Oral tab 1 tab once daily [Active]; gabapentin 300 mg Oral cap hb [Active]; lisinopril 5 mg Oral tab 1 tab once daily [Active]; metformin 500 mg Oral tab 1 tab [Active]; - PMHx: 13:18 Diabetes - NIDDM; Hypertension; hb - PSHx: 13:18 Appendectomy; Cholecystectomy; Operative procedure on knee; hb - Immunization history:: Adult Immunizations up to date. - Infectious Disease History:: Denies. - Social history:: Smoking status: Patient denies any tobacco usage or history of. ROS: 14:01 Constitutional: Negative for fever, chills, and weight loss, sb4 14:01 ENT: Positive for ear pain, 14:01 All other systems are negative, Exam: 14:01 Constitutional: This is a well developed, well nourished patient who is awake, alert, sb4 and in no acute distress. Head/Face: Normocephalic, atraumatic. Eyes: Extra-ocular motions intact. Periorbital areas with no swelling, redness, or edema. Skin: Warm, dry with normal turgor. Normal color with no rashes, no lesions, and no evidence of cellulitis. 14:01 ENT: TM's: erythema, rupture, on the left, Vital Signs: 13:17 BP 150 / 77; Pulse 63; Resp 16; Temp 97.5(TE); Pulse Ox 100% on R/A; Pain 6/10; hb 13:17 Pain Scale: Adult hb MDM: 13:13 Patient medically screened. sb4 14:01 Data reviewed: vital signs, nurses notes, and as a result, I will discharge patient. sb4 Counseling: I had a detailed discussion with the patient and/or guardian regarding the historical points, exam findings, and any diagnostic results supporting the discharge/admit diagnosis, the need for outpatient follow up, an ENT specialist, to return to the emergency department if symptoms worsen or persist or if there are any questions or concerns that arise at home. Administered Medications: No medications were administered Disposition: 01/03 07:42 Co-signature as Attending Physician, Ventura Lara MD I reviewed the patient's care rn provided by the Advanced Practice Provider and agree with the diagnosis and treatment plan. Disposition Summary: 01/03/24 13:28 Discharge Ordered Notes: Location: Home sb4 Problem: new sb4 Symptoms: have improved sb4 Condition: Stable sb4 Diagnosis - Acute suppurative otitis media with spontaneous rupture of ear drum, left ear sb4 Followup: sb4 - With: Maida Barroso MD - When: 1 week - Reason: Recheck today's complaints, Re-evaluation by your physician Discharge Instructions: - Discharge Summary Sheet sb4 - Ear Drops, Adult sb4 - Otitis Media, Adult sb4 Forms: - Antibiotic Education sb4 - Patient Portal Instructions sb4 - Leadership Thank You Letter sb4 Prescriptions: - Ciprodex 0.3-0.1 % Otic drops, suspension - instill 4 drops OTIC route every 12 hours for 7 days , for ears ONLY; 1 sb4 Applicator; Refills: 0, Product Selection Permitted Signatures: Ventura Lara MD MD rn Baxter, Heather, RN RN hb Brown, Sophia, PA-C PA-C sb4 Corrections: (The following items were deleted from the chart) 01/02 13:19 13:18 Home Meds: lisinopril 5 mg Oral tab 1 tab once daily; hb hb
[2024-01-03 13:49] VITALS: BP 150/77; TEMP 97.5; O2SAT 100
== END 2024-01-03 13:33 | disposition home or self-care (01) ==
LOC: ER 13:09
DX: H66.012 Acute suppurative otitis media with spontaneous rupture of ear drum, left ear (principal)
CPT/HCPCS: 99283